=== PATIENT | male | born 1940 | race Caucasian/White ===

== ENCOUNTER 2017-01-26 16:52 | Inpatient (IN) | payer MEDICARE, OTHER ==
[~2017-01-26] VITALS: Ht 177.8 cm; Wt 66.2 kg
[~2017-01-26 16:52] MED LIST: ALBU8.5H2 IH; ALPR1TAB2 PO; CLOP75TA2 PO; FLUT1DIS3 IH
[2017-01-26 17:24] LABS: BASOPHILS % (AUTO) 0.3 % (0.0-2.0); EOSINOPHILS # (AUTO) 0.1 /CMM (0.0-0.7); EOSINOPHILS % (AUTO) 1.6 % (0.0-6.0); HEMATOCRIT 43 % (39-51); HEMOGLOBIN 14.7 g/dL (13.5-17.5); LYMPHOCYTES # (AUTO) 1.4 /CMM (0.8-4.8); LYMPHOCYTES % (AUTO) 16.1 % (20.0-44.0); MEAN CORPUSCULAR HEMOGLOBIN 28 PG (26.0-33.0); MEAN CORPUSCULAR HGB CONC 35 g/dl (31.0-36.0); MEAN CORPUSCULAR VOLUME 82 fL (80-96); MONOCYTES # (AUTO) 0.4 /CMM (0.1-1.30); MONOCYTES % (AUTO) 4.2 % (2.0-12.0); NEUTROPHILS % (AUTO) 77.8 % (43.0-81.0); PLATELET COUNT (AUTO) 166 /CMM (150-450); RDW COEFFICIENT OF VARIATION 13.4 (11.5-15.0); RED BLOOD CELL COUNT(AUTO) 5.18 MIL/uL (4.5-6.0); WHITE BLOOD COUNT (AUTO) 8.9 K/uL (4.3-11.0)
[2017-01-26] MEDS ORDERED: CEFTRIAXONE 1GM BAG (ER ONLY) 50 ML IV ONE ×2 (17:30→17:36)
[2017-01-26] MEDS ORDERED: AZITHROMYCIN 500 MG in IV D5W 250 ML IV ONE (17:30)
[2017-01-26] MEDS ORDERED: IV NS 0.9% 1,000 ML BAG IV ONE (17:30)
[2017-01-26] MEDS ORDERED: IV NS 0.9% 2,000 ML ONE (17:32)
[2017-01-26] MEDS ORDERED: IV SET PRIMARY 1 EA INFUS.SET MC ONE (17:32)
[2017-01-26] MEDS ORDERED: IV SET PRIMARY PUMP SET 1 EA INFUS.SET MC ONE (17:32)
[2017-01-26 17:40] LABS: CREATININE 1.5 mg/dL (0.6-1.3)
[2017-01-26 17:51] LABS: LACTIC ACID 1.3 mmol/L (0.4-2.0)
[2017-01-26] MEDS ORDERED: ESOM40CA PO (18:45)
[2017-01-26] MEDS ORDERED: DONE5TAB34 PO (18:45)
[2017-01-26] MEDS ORDERED: TAMS0.4C34 PO (18:45)
[2017-01-26] MEDS ORDERED: ASPI81TA2 PO (18:45)
[2017-01-26] MEDS ORDERED: ATOR40TA PO (18:45)
[2017-01-26] MEDS ORDERED: ASPIRIN 325 MG TABLET ONE (18:58)
[2017-01-26] MEDS ORDERED: FUROSEMIDE 20 MG/2 ML VIAL ONE (18:58)
--- NOTE | 2017-01-26 18:58 | NUR ---
CALLED NURSING SUP. FOR TELE BED
[2017-01-26] MEDS ORDERED: ASPIRIN 325 MG TABLET PO ONE (19:00)
[2017-01-26] MEDS ORDERED: FUROSEMIDE 20 MG/2 ML VIAL IV ONE (19:00)
--- NOTE | 2017-01-26 19:21 | NUR ---
RECEIVED REPORT FROM RADHA MUSE.
--- NOTE | 2017-01-26 19:56 | NUR ---
PT ASSIGNED TO [facility] 304-2
--- NOTE | 2017-01-26 20:02 | NUR ---
REPORT GIVEN TO RN SHA FOR TELE BED 304-2
--- NOTE | 2017-01-26 20:26 | NUR ---
PT TRASNFERED PER ACLS PROTOCOL.
[2017-01-26] MEDS ORDERED: MAG HYDROX/AL HYDROX/SIMETH 30 ML UDC PO PRN (20:30)
[2017-01-26] MEDS ORDERED: ZOLPIDEM TARTRATE 5 MG TABLET PO PRN (20:30)
[2017-01-26] MEDS ORDERED: Z GUARD REMEDY 2 OZ OINT TP PRN (20:30)
[2017-01-26] MEDS ORDERED: MAGNESIUM HYDROXIDE 30 ML UDC PO PRN (20:30)
[2017-01-26] MEDS ORDERED: ONDANSETRON HCL/PF 4 MG/2 ML VIAL IVP PRN (20:30)
--- NOTE | 2017-01-26 20:30 | NUR ---
RN NOTE PT ARRIVED ON UNIT. AAOX3, NO S/S OF RESPIRATORY DISTRESS. ON 2L NC. DENIES PAIN/DISCOMFORT. TELE ATTACHED - SR 80'S. SKIN ISSUES NOTED. VSS. ABLE TO URINATE ON OWN. ORIENTATED TO UNIT AND CALL LIGHT. WILL CONT TO MONITOR. AWAITING MD ORDERS
[2017-01-26] MEDS ORDERED: TAMSULOSIN 0.4 MG CAP.SR.24H ONE (21:15)
[2017-01-26 21:30] VITALS: BP 126/72
[2017-01-26] MEDS: TAMSULOSIN 0.4 MG CAP.SR.24H PO SCH (22:33)
[2017-01-26] MEDS ORDERED: IV NS 0.9% 500 ML IV ONE (23:30)
[2017-01-27] VITALS: BP 122/63
[2017-01-27] MEDS ORDERED: IV NS 0.9% 1,000 ML ONE (00:04)
[2017-01-27] MEDS ORDERED: IV SET PRIMARY PUMP SET 1 EA INFUS.SET MC ONE (00:04)
[2017-01-27] MEDS: IPRATROPIUM NEB FS 0.5 MG/2.5 ML AMPUL.NEB NEB SCH ×7 (00:14→23:01)
[2017-01-27] MEDS: ALBUTEROL FS 2.5 MG/0.5 ML VIAL.NEB NEB SCH ×2 (00:14→03:09)
[2017-01-27] MEDS ORDERED: ACETAMINOPHEN 325 MG TABLET ONE (01:34)
[2017-01-27] MEDS: ACETAMINOPHEN 325 MG TABLET PO PRN ×2 (01:45→12:43)
[2017-01-27 04:00] VITALS: BP 116/60
--- NOTE | 2017-01-27 06:17 | NUR ---
RN NOTE NO SIGNIFICANT CHANGES THIS SHIFT. PT AAOX4, NO C/O OF PAIN OR DISCOMFORT AT THIS TIME. NO S/S OF RESPIRATORY DISTRESS. ON NC 2L O2. VSS. HOB ELEVATED 30 DEGREES. IV INTACT AND PATENT. CALL LIGHT IN REACH, WILL F/U WITH DAY SHIFT FOR ROBINSON. Addendum: 01/27/17 at 0623 by SHA MATTHEW RN TELE SHOWS SR 60'S
[2017-01-27] MEDS ORDERED: ALBUTEROL SULFATE 8 GM HFA.AER.AD IH SCH (07:00)
--- NOTE | 2017-01-27 07:37 | NUR ---
MANAGER MECHANICAL MAINTENANCE OPENING NOTE PATIENT IS ASLEEP IN BED LOCKED IN LOWEST POSITION WITH SIDERAILS UP x2. NO PAIN AT THIS TIME. NO SOB OR DISTRESS NOTED. CALL LIGHT WITHIN REACH. IV INTACT AND PATENT NO REDNESS OR SWELLING NOTED. SAFETY MEASURES IMPLEMENTED. ALL NURSING CARE NEEDS WILL BE ATTENDED TO. WILL CONTINUE TO MONITOR
[2017-01-27] MEDS: ALBUTEROL FS 2.5 MG/3 ML VIAL.NEB NEB SCH ×5 (07:43→23:01)
[2017-01-27 08:00] VITALS: BP 103/53
[2017-01-27 08:03] LABS: BASOPHILS % (AUTO) 0.3 % (0.0-2.0); EOSINOPHILS # (AUTO) 0.2 /CMM (0.0-0.7); HEMATOCRIT 36 % (39-51); HEMOGLOBIN 12.1 g/dL (13.5-17.5); LYMPHOCYTES % (AUTO) 24.7 % (20.0-44.0); MEAN CORPUSCULAR HEMOGLOBIN 28 PG (26.0-33.0); MEAN CORPUSCULAR HGB CONC 33 g/dl (31.0-36.0); MEAN CORPUSCULAR VOLUME 83 fL (80-96); MONOCYTES # (AUTO) 0.7 /CMM (0.1-1.30); MONOCYTES % (AUTO) 8.2 % (2.0-12.0); NEUTROPHILS # (AUTO) 5.3 /CMM (1.8-8.9); NEUTROPHILS % (AUTO) 64.8 % (43.0-81.0); PLATELET COUNT (AUTO) 158 /CMM (150-450); RDW COEFFICIENT OF VARIATION 14.3 (11.5-15.0); RED BLOOD CELL COUNT(AUTO) 4.37 MIL/uL (4.5-6.0); WHITE BLOOD COUNT (AUTO) 8.2 K/uL (4.3-11.0)
[2017-01-27 08:28] LABS: CALCIUM, SERUM 7.9 mg/dL (8.5-10.1); CREATININE 1.3 mg/dL (0.6-1.3); MAGNESIUM 1.4 mg/dL (1.8-2.4); PHOSPHORUS 4.1 mg/dL (2.5-4.9); POTASSIUM 3.1 mmol/L (3.5-5.1)
[2017-01-27] MEDS: PANTOPRAZOLE 40 MG TABLET.DR PO SCH (08:47)
[2017-01-27] MEDS: ATORVASTATIN 40 MG TABLET PO SCH (08:48)
[2017-01-27] MEDS: ASPIRIN 81 MG TAB.CHEW PO SCH (08:48)
[2017-01-27] MEDS: CLOPIDOGREL BISULFATE 75 MG TABLET PO SCH (08:48)
[2017-01-27] MEDS: DONEPEZIL 5 MG TABLET PO SCH (08:48)
[2017-01-27] MEDS ORDERED: methylPREDNISolone SOD SUCC 125 MG/2ML VIAL IV SCH (09:00)
[2017-01-27] MEDS: FLUTICASONE/SALMETEROL DISKUS IH SCH ×2 (09:00→21:00)
[2017-01-27] MEDS: HYDROCODONE/APAP 5/325MG 1 EACH TABLET PO PRN ×2 (09:50→15:43)
[2017-01-27] MEDS ORDERED: SECONDARY IV SET 1 EA INFUS.SET MC ONE (09:53)
[2017-01-27] MEDS ORDERED: ENOXAPARIN SODIUM 40 MG/0.4 ML DISP.SYRIN SQ SCH (10:00)
[2017-01-27] MEDS: Magnesium 1GM/D5W 100ML PREMIX 100 ML IV SCH ×2 (10:04→11:30)
--- NOTE | 2017-01-27 11:15 | NUR ---
RN NOTE PATIENT IS NO LONGER ON TELE MONITORING, NOW ON MEDSUR
[2017-01-27] MEDS: POTASSIUM CHLORIDE 20 MEQ TAB.PRT.SR PO SCH ×2 (11:30→12:43)
[2017-01-27] MEDS: methylPREDNISolone SOD SUCC 40 MG/ML VIAL IV SCH ×2 (12:46→16:24)
[2017-01-27 13:23] LABS: APPEARANCE,URINE CLEAR (CLEAR); BILIRUBIN,URINE NEGATIVE (NEGATIVE); BLOOD, URINE 2+ Ery/uL (NEGATIVE); COLOR,URINE YELLOW (YELLOW); KETONES,URINE NEGATIVE (NEGATIVE); LEUKOCYTE ESTERASE ,URINE NEGATIVE (NEGATIVE); NITRITE, URINE NEGATIVE (NEGATIVE); PROTEIN,URINE NEGATIVE (NEGATIVE); UGLUCOSE NEGATIVE (NEGATIVE); UROBILINOGEN,URINE 0.2 EU/dL (0.2)
[2017-01-27 13:38] LABS: ADD URINE CULTURE NO; BACTERIA,URINE Few /HPF (None Seen); RBC,URINE 51-80 /HPF (0-2); SQUAMOUS EPITHELIAL CELL,UR None Seen /HPF (None Seen); WBC,URINE 0-2 /HPF (0-3)
[2017-01-27 16:00] VITALS: BP 129/63
--- NOTE | 2017-01-27 16:56 | NUR ---
MS RN NOTE PATIENT WAS TAKEN TO CT FOR CHEST. PATIENT IS STABLE, NO PAIN AT THIS TIME.
--- NOTE | 2017-01-27 17:16 | NUR ---
ms rn note patient is back from CT scan of the chest. patient is stable. vitals are stable. will continue to monitor
[2017-01-27] MEDS: ALPRAZOLAM 1 MG TABLET PO PRN (17:36)
[2017-01-27] MEDS ORDERED: AZITHROMYCIN 250 MG TABLET PO SCH (18:00)
--- NOTE | 2017-01-27 18:38 | NUR ---
MS RN CLOSING NOTE PATIENT IS ALERT AND ORIENTED x3. ASLEEP IN BED LOCKED IN LOWEST POSITION WITH SIDERAILS UP x2. NO PAIN AT THIS TIME. NO SOB OR DISTRESS NOTED. ALL DUE MEDICATION GIVEN ORDERED. ALL NURSING CARE NEEDS ATTENDED TO. CALL LIGHT WITHIN REACH. SAFETY MEASURES IMPLEMENTED AT ALL TIMES. IV INTACT AND PATENT NO REDNESS OR SWELLING NOTED. WILL ENDORSE TO CREW LEADER/CONTROL ROOM OPERATOR NURSE FOR ROBINSON
--- NOTE | 2017-01-27 19:05 | NUR ---
RN NOTE RECEIVED REPORT. PT RESTING IN BED WITH EYES CLOSED. APPEARS COMFORTABLE. NO S/S OF RESPIRATORY DISTRESS, CHEST RISE/FALL NOTED. ON NC 2L. HOB ELEVATED 30 DEGREES. M/S STATUS. CALL LIGHT IN REACH. WILL CONT TO MONITOR.
[2017-01-27 20:00] VITALS: BP 128/71
[2017-01-27] MEDS: TAMSULOSIN 0.4 MG CAP.SR.24H PO SCH (22:42)
[2017-01-28] MEDS: HYDROCODONE/APAP 5/325MG 1 EACH TABLET PO PRN ×2 (01:13→09:29)
[2017-01-28] MEDS: IPRATROPIUM NEB FS 0.5 MG/2.5 ML AMPUL.NEB NEB SCH ×6 (03:46→22:54)
[2017-01-28] MEDS: ALBUTEROL FS 2.5 MG/3 ML VIAL.NEB NEB SCH ×6 (03:46→22:54)
[2017-01-28] MEDS: ALPRAZOLAM 1 MG TABLET PO PRN ×2 (05:02→21:40)
[2017-01-28 07:29] LABS: BASOPHILS % (AUTO) 0.2 % (0.0-2.0); HEMATOCRIT 37 % (39-51); HEMOGLOBIN 12.2 g/dL (13.5-17.5); LYMPHOCYTES # (AUTO) 1.3 /CMM (0.8-4.8); MEAN CORPUSCULAR HEMOGLOBIN 28 PG (26.0-33.0); MEAN CORPUSCULAR HGB CONC 33 g/dl (31.0-36.0); MEAN CORPUSCULAR VOLUME 83 fL (80-96); MONOCYTES # (AUTO) 0.6 /CMM (0.1-1.30); MONOCYTES % (AUTO) 3.8 % (2.0-12.0); NEUTROPHILS # (AUTO) 12.8 /CMM (1.8-8.9); PLATELET COUNT (AUTO) 156 /CMM (150-450); RDW COEFFICIENT OF VARIATION 14.6 (11.5-15.0); RED BLOOD CELL COUNT(AUTO) 4.43 MIL/uL (4.5-6.0); WHITE BLOOD COUNT (AUTO) 14.7 K/uL (4.3-11.0)
--- NOTE | 2017-01-28 07:30 | NUR ---
RN NOTE NO SIGNIFICANT CHANGES OVERNIGHT. PT SLEPT WELL. PRN XANAX EFFECTIVE. APPEARS CALM. NO DISTRESS AT THIS TIME, VS STABLE. ALL NEEDS ATTENED TO. CALL LIGHT IN REACH, WILL F/U WITH DAY SHIFT FOR ROBINSON.
[2017-01-28 07:51] VITALS: BP 107/62
[2017-01-28 07:59] LABS: CALCIUM, SERUM 8.6 mg/dL (8.5-10.1); CREATININE 1.3 mg/dL (0.6-1.3); MAGNESIUM 1.7 mg/dL (1.8-2.4); PHOSPHORUS 3.2 mg/dL (2.5-4.9); POTASSIUM 3.8 mmol/L (3.5-5.1)
[2017-01-28 08:00] VITALS: BP 107/67
[2017-01-28] MEDS: PANTOPRAZOLE 40 MG TABLET.DR PO SCH (08:46)
[2017-01-28] MEDS: methylPREDNISolone SOD SUCC 40 MG/ML VIAL IV SCH ×2 (08:46→12:14)
[2017-01-28] MEDS: ATORVASTATIN 40 MG TABLET PO SCH (08:46)
[2017-01-28] MEDS: DONEPEZIL 5 MG TABLET PO SCH (08:46)
[2017-01-28] MEDS: CLOPIDOGREL BISULFATE 75 MG TABLET PO SCH (08:46)
[2017-01-28] MEDS: ASPIRIN 81 MG TAB.CHEW PO SCH (08:46)
[2017-01-28] MEDS: FLUTICASONE/SALMETEROL DISKUS IH SCH ×2 (08:47→21:50)
[2017-01-28] MEDS ORDERED: SECONDARY IV SET 1 EA INFUS.SET MC ONE ×2 (09:21→11:27)
[2017-01-28] MEDS: Magnesium 1GM/D5W 100ML PREMIX 100 ML IV SCH ×2 (09:24→10:23)
[2017-01-28] MEDS ORDERED: LEVOFLOXACIN 750 MG /D5W 150ML 750 MG in PREMIX 1 EA IV SCH ×2 (10:00→11:00)
[2017-01-28] MEDS ORDERED: IBUPROFEN 600 MG TABLET PO SCH (11:30)
[2017-01-28] MEDS: MORPHINE SULFATE INJ 2 MG/ML DISP.SYRIN IV PRN ×2 (13:09→23:36)
[2017-01-28] MEDS: ACETYLCYSTEINE 10% SOLN 400 MG/4 ML VIAL NEB SCH ×2 (15:30→22:54)
--- NOTE | 2017-01-28 15:39 | NUR ---
RT PT HAVING BEDSIDE PROCEDURE, TX NOT GIVEN AT THIS TIME.
--- NOTE | 2017-01-28 18:26 | NUR ---
MS/Rn: notes Patient reassessed per Medical / Surgical protocol, no acute change noted from initial shift assessment. please see completed data in flowsheets. patient a / o x 4, adequate oxygenation on 3 liter nasal cannula , saturation >95%, no shortness of breath noted, HHN treatment given by RT. vss, afebrile. patient turned and positioned q2h and prn. tolerated diet well, no nausea, vomiting noted. adequate urine output, + BM. Venous Doppler done, negative for DVT. Prn given for pain management. Will continue to monitor closely and intervene as appropriate.
--- NOTE | 2017-01-28 19:10 | NUR ---
RN NOTE RECEIVED REPORT. PT AAOX3, NO S/S OF RESPIRATORY DISTRESS, NO C/O OF PAIN OR DISCOMFORT. ON NC 2L. NO SOB OR CP REPORTED. HOB ELEVATED 30 DEGREES. M/S STATUS. CALL LIGHT IN REACH. WILL CONT TO MONITOR.
[2017-01-28 20:15] VITALS: BP 118/52
[2017-01-28] MEDS: TAMSULOSIN 0.4 MG CAP.SR.24H PO SCH (21:40)
--- NOTE | 2017-01-29 01:23 | NUR ---
RN NOTE PT RESTING COMFORTABLY. NO DISTRESS NOTED AT THIS TIME - WILL CONT TO MONITOR.
[2017-01-29] MEDS: ALBUTEROL FS 2.5 MG/3 ML VIAL.NEB NEB SCH ×4 (03:49→15:28)
[2017-01-29] MEDS: IPRATROPIUM NEB FS 0.5 MG/2.5 ML AMPUL.NEB NEB SCH ×4 (03:49→15:28)
--- NOTE | 2017-01-29 06:02 | NUR ---
RN NOTE NO SIGNIFICANT CHANGES OVERNIGHT. NO S/S OF RESPIRATORY DISTRESS AT THIS TIME. NO SOB NOTED. NO C/O OF PAIN OR DISCOMFORT. PAIN MEDS EFFECTIVE THIS SHIFT. VS STABLE. ALL NEEDS ATTENDED TO. CALL LIGHT IN REACH, WILL F/U WITH DAY SHIFT FOR ROBINSON.
[2017-01-29 06:49] LABS: BASOPHILS % (AUTO) 0.3 % (0.0-2.0); HEMATOCRIT 36 % (39-51); HEMOGLOBIN 11.9 g/dL (13.5-17.5); LYMPHOCYTES % (AUTO) 13.8 % (20.0-44.0); MEAN CORPUSCULAR HEMOGLOBIN 28 PG (26.0-33.0); MEAN CORPUSCULAR HGB CONC 33 g/dl (31.0-36.0); MEAN CORPUSCULAR VOLUME 83 fL (80-96); MONOCYTES # (AUTO) 0.7 /CMM (0.1-1.30); NEUTROPHILS # (AUTO) 11.5 /CMM (1.8-8.9); NEUTROPHILS % (AUTO) 80.9 % (43.0-81.0); PLATELET COUNT (AUTO) 160 /CMM (150-450); RDW COEFFICIENT OF VARIATION 14.1 (11.5-15.0); RED BLOOD CELL COUNT(AUTO) 4.27 MIL/uL (4.5-6.0); WHITE BLOOD COUNT (AUTO) 14.2 K/uL (4.3-11.0)
[2017-01-29] MEDS: ACETYLCYSTEINE 10% SOLN 400 MG/4 ML VIAL NEB SCH ×2 (07:10→15:28)
[2017-01-29 07:27] LABS: CALCIUM, SERUM 8.6 mg/dL (8.5-10.1); CREATININE 1.2 mg/dL (0.6-1.3); MAGNESIUM 1.7 mg/dL (1.8-2.4); POTASSIUM 4.3 mmol/L (3.5-5.1)
[2017-01-29] MEDS: PANTOPRAZOLE 40 MG TABLET.DR PO SCH (07:36)
[2017-01-29 07:58] VITALS: BP 123/69
[2017-01-29 08:00] VITALS: BP 123/69
[2017-01-29] MEDS: ASPIRIN 81 MG TAB.CHEW PO SCH (08:27)
[2017-01-29] MEDS: ATORVASTATIN 40 MG TABLET PO SCH (08:27)
[2017-01-29] MEDS: DONEPEZIL 5 MG TABLET PO SCH (08:27)
[2017-01-29] MEDS: CLOPIDOGREL BISULFATE 75 MG TABLET PO SCH (08:29)
[2017-01-29] MEDS: FLUTICASONE/SALMETEROL DISKUS IH SCH (08:30)
[2017-01-29] MEDS ORDERED: methylPREDNISolone SOD SUCC 40 MG/ML VIAL IV SCH (09:00)
[2017-01-29] MEDS ORDERED: Ipratropium Bromide NEB (10:00)
[2017-01-29] MEDS ORDERED: PRED20TA GT (10:00)
[2017-01-29] MEDS ORDERED: HYDR-3326 PO (10:00)
[2017-01-29] MEDS ORDERED: PRED20TA PO (10:00)
[2017-01-29] MEDS ORDERED: LEVO500T15 PO (10:02)
[2017-01-29] MEDS: Magnesium 1GM/D5W 100ML PREMIX 100 ML IV SCH ×2 (11:13→13:04)
--- NOTE | 2017-01-29 16:28 | NUR ---
MS/RN: discharge All discharge instruction gave to patient, verbalize understanding, patient's belongings: cell phone, java j2ee architect, Knott $ 600($100 x 6), shoes, jacket, t-shirt are with patient, copy of patient's belonging provided to patient, and informed to patient to call [phone] for missing items that he claimed ( Pajamas, keys and pants).Zay h/l removed, no bleeding noted, wrist band removed. patient denies pain, no shortness of breath noted, condition stable. patient is picked up by ambulance via gurney with stable condition. Addendum: 01/29/17 at 1904 by ANJALI KAISER RN notes: discharge picture taken.
--- NOTE | 2017-01-29 16:30 | NUR ---
ms/rn: notes report gave to RN carpentry supervisor Halle at [facility], tel: [phone]. Notified that patient has steward $600, and missing Pajamas, pants and keys. Charge nurse made aware patient missing items, copy of the patient's belongings form given to charge nurse.
== END 2017-01-29 16:45 | DRG 193 ==
LOC: ER 17:14 → TELE 19:51 → MED 01-27 10:45
PROVIDERS: ADMIT Family Medicine; ATTEND Family Medicine
DX: J15.9 Unspecified bacterial pneumonia (principal); N17.0 Acute kidney failure with tubular necrosis; J44.1 Chronic obstructive pulmonary disease with (acute) exacerbation; I50.32 Chronic diastolic (congestive) heart failure; I13.0 Hypertensive heart and chronic kidney disease with heart failure and stage 1 through stage 4 chronic kidney disease, or unspecified chronic kidney disease; J98.11 Atelectasis; J44.0 Chronic obstructive pulmonary disease with (acute) lower respiratory infection; N18.9 Chronic kidney disease, unspecified; N40.0 Benign prostatic hyperplasia without lower urinary tract symptoms; K21.9 Gastro-esophageal reflux disease without esophagitis; Z86.711 Personal history of pulmonary embolism; J45.909 Unspecified asthma, uncomplicated; Z86.73 Personal history of transient ischemic attack (TIA), and cerebral infarction without residual deficits; Z87.891 Personal history of nicotine dependence; F03.90 Unspecified dementia, unspecified severity, without behavioral disturbance, psychotic disturbance, mood disturbance, and anxiety; E78.5 Hyperlipidemia, unspecified; E83.42 Hypomagnesemia
CPT/HCPCS: 36415; 71010-TC; 71250-TC; 80048-TC; 80061-TC; 81000-TC; 82378; 83605-TC; 83615-TC; 83735-TC; 83880; 84100-TC; 84484-TC; 85025-TC; 87040-TC; 87081-TC; 87086-TC; 87400; 93307-TC; 93970-TC; 94799-TC; 97001-TC; 97116-TC; 97530-TC; A4216; A4606; J0456; J0696; J1650; J1940; J1956; J2270; J2920; J2930; J3475; J7030; J7040; J7060; Z7610

== ENCOUNTER 2017-08-23 19:22 | Inpatient (IN) | payer MEDICARE, OTHER ==
[~2017-08-23] VITALS: Ht 167.6 cm; Wt 63.5 kg
[2017-08-23 19:20] VITALS: BP 160/93
[~2017-08-23 19:22] MED LIST changes: +ASPI81TA2 PO; +ATOR40TA PO; +DONE5TAB34 PO; +ESOM40CA PO; +HYDR-3326 PO; +Ipratropium Bromide NEB; +LEVO500T15 PO; +PRED20TA GT; +PRED20TA PO; +TAMS0.4C34 PO
--- NOTE | 2017-08-23 19:23 | NUR ---
Note judithone in EDM - 08/23/17 at 2008 by PRIYA TO BED 5 BIB PARAMEDICS C/O SOB. PT ON CPAP BY EMS DIRECTOR CAREER SERVICES. PT AAOX4, RT AT BEDSIDE TO PLACE PT ON BIPAP. PLACE PT ON CARDIAC MONITORING, CONTINUOUS POX. STATRED SL 16G TO R FOREAR, BLOOD DRAWN AND SENT TO LAB. NAVIN AQUINO AT BEDSIDE WITH ORDER TO PLACE PT ON BIPAP. SKIN WARM, NONDIAPHORETIC. WILL CARRY OUT ORDERS.
--- NOTE | 2017-08-23 19:23 | NUR ---
TO BED 5 BIB PARAMEDICS C/O SOB. PT ON CPAP BY EMS REFERENCE ARCHIVIST. PT AAOX4, RT AT BEDSIDE TO PLACE PT ON BIPAP. RHONCHI HEARD BILATERALLY ON AUSCULTATION. PLACE PT ON CARDIAC MONITORING, CONTINUOUS POX. STATRED SL 16G TO R FOREAR, BLOOD DRAWN AND SENT TO LAB. ER MD AT BEDSIDE WITH ORDER TO PLACE PT ON BIPAP. SKIN WARM, NONDIAPHORETIC. WILL CARRY OUT ORDERS.
[2017-08-23] MEDS ORDERED: NITROGLYCERIN PACKET 1 GM PACKET TOP ONE (19:30)
[2017-08-23] MEDS ORDERED: ENALAPRILAT INJ (1.25 MG/ML) 1.25 MG/ML VIAL IV PRN (19:30)
[2017-08-23] MEDS ORDERED: NITROGLYCERIN PACKET 1 GM PACKET ONE (19:33)
[2017-08-23] MEDS ORDERED: ENALAPRILAT DIHYD. (2.5MG/ML) 1.25 MG/ML VIAL IV ONE (19:34)
[2017-08-23 19:35] LABS: BASOPHILS # (AUTO) 0.3 /CMM (0.0-0.2); BASOPHILS % (AUTO) 1.4 % (0.0-2.0); HEMATOCRIT 49 % (39-51); HEMOGLOBIN 16.6 g/dL (13.5-17.5); MEAN CORPUSCULAR HEMOGLOBIN 28 PG (26.0-33.0); MEAN CORPUSCULAR HGB CONC 34 g/dl (31.0-36.0); MEAN CORPUSCULAR VOLUME 83 fL (80-96); MONOCYTES # (AUTO) 0.9 /CMM (0.1-1.30); MONOCYTES % (AUTO) 5.1 % (2.0-12.0); NEUTROPHILS # (AUTO) 15.2 /CMM (1.8-8.9); NEUTROPHILS % (AUTO) 82.5 % (43.0-81.0); PLATELET COUNT (AUTO) 160 /CMM (150-450); RDW COEFFICIENT OF VARIATION 12.9 (11.5-15.0); RED BLOOD CELL COUNT(AUTO) 5.94 MIL/uL (4.5-6.0); WHITE BLOOD COUNT (AUTO) 18.4 K/uL (4.3-11.0)
--- NOTE | 2017-08-23 19:41 | NUR ---
XR AT BEDSIDE.
[2017-08-23 19:47] LABS: CALCIUM, SERUM 9.3 mg/dL (8.5-10.1); CARBON DIOXIDE 24 mmol/L (21-32); CHLORIDE 103 mmol/L (98-107); CREATININE 1.3 mg/dL (0.6-1.3); GLUCOSE 151 mg/dL (74-106); POTASSIUM 3.3 mmol/L (3.5-5.1); SODIUM SERUM 139 mmol/L (136-145); UREA NITROGEN, BLOOD 26 mg/dL (7-18)
[2017-08-23 19:54] LABS: INR 1.09 (0.87-1.13); PROTHROMBIN TIME 11.3 SECS (9.5-12.7); TROPONIN I 0.062 ng/mL (0.00-0.056)
[2017-08-23 19:59] LABS: B-TYPE NATRIURETIC PEPTIDE 2853 PG/ML (0-125)
--- NOTE | 2017-08-23 20:28 | NUR ---
PAGED ADELFO MENG CHERRY PICKER OPERATOR PANEL.
[2017-08-23] MEDS ORDERED: CEFTRIAXONE 1GM BAG (ER ONLY) 50 ML IV ONE ×2 (20:30→20:32)
[2017-08-23] MEDS ORDERED: IV NS 0.9% 1,000 ML BAG IV ONE (20:30)
[2017-08-23] MEDS ORDERED: ASPIRIN 325 MG TABLET PO ONE (20:30)
[2017-08-23] MEDS ORDERED: AZITHROMYCIN 500 MG in IV D5W 250 ML IV ONE (20:30)
[2017-08-23] MEDS ORDERED: ASPIRIN 325 MG TABLET ONE (20:33)
--- NOTE | 2017-08-23 20:46 | NUR ---
ASSIGNED ICU BED 252. AWAITING ARRIVAL OF NURSE TO CARE FOR PT IN ICU. ETA: 30 MINS
--- NOTE | 2017-08-23 20:53 | NUR ---
RECEIVED CALL FROM LYNETTE LEVIN (FRIEND ON HELATH DIRECTIVE) SEEN BY DR. MOHAN APPROX 2 MONTHS AGO SEEN BY BRANDON GAYTAN IN [place] [facility] IN [facility]
[2017-08-23] MEDS ORDERED: AZITHROMYCIN 500 MG VIAL ONE (21:14)
--- NOTE | 2017-08-23 21:23 | NUR ---
PER GOLF PROFESSIONAL, ICU CAN NOW ACCOMODATE PT. PRIMARY NURSE INFORMED AND INSTRUCTED TO GIVE REPORT TO ICU.
--- NOTE | 2017-08-23 21:52 | NUR ---
REPORT GIVEN TO JOEY GARCIA FOR ICU ADMISSION AND ROBINSON.
[2017-08-23] MEDS ORDERED: ONDANSETRON HCL/PF 4 MG/2 ML VIAL IVP PRN (22:00)
[2017-08-23] MEDS ORDERED: Z GUARD REMEDY 2 OZ OINT TP PRN (22:00)
[2017-08-23] MEDS ORDERED: ACETAMINOPHEN 325 MG TABLET PO PRN (22:00)
[2017-08-23] MEDS ORDERED: MAGNESIUM HYDROXIDE 30 ML UDC PO PRN (22:00)
[2017-08-23] MEDS ORDERED: ZOLPIDEM TARTRATE 5 MG TABLET PO PRN (22:00)
[2017-08-23] MEDS: TAMSULOSIN 0.4 MG CAP.SR.24H PO SCH (22:00)
--- NOTE | 2017-08-23 22:12 | NUR ---
Tranferred patient to icu bed 255 via als protocol, no incident noted.
[2017-08-23 22:20] VITALS: BP_SYST 145; BP_SYST 95; BP_DIAS 56; BP_DIAS 73
[2017-08-23 22:30] VITALS: BP 121/60
--- NOTE | 2017-08-23 22:31 | NUR ---
BUSINESS ASSISTANT DF RECEIVED PT TO ROOM#252 PT ADMITTED FOR COPD EXCAB/RESP DISTRESS/PNA. PT A/OX4 CALM,COOPERATIVE. PT VERBALIZES GOOD UNDERSTANDING OF TREATMENT PLAN. PT CURRENTLY ON BIPAP RATE OF 16 I/E 18/5 40% FIO2 VSS. O2 SAT OF 97-98%. NO DISTRESS NOTED. PHYSICAL ASSESSMENT COMPLETED
[2017-08-23 23:00] VITALS: BP 95/56
[2017-08-23 23:08] VITALS: BP 95/56
[2017-08-24] VITALS (44 sets, daily range): BP systolic 103–167; BP diastolic 49–124
[2017-08-24] MEDS ORDERED: ALBUTEROL FS 2.5 MG/0.5 ML VIAL.NEB NEB PRN (00:30)
[2017-08-24] MEDS ORDERED: LEVOFLOXACIN 750 MG /D5W 150ML 750 MG in PREMIX 1 EA IV SCH (00:30)
[2017-08-24] MEDS ORDERED: IPRATROPIUM NEB FS 0.5 MG/2.5 ML AMPUL.NEB NEB PRN (00:30)
[2017-08-24] MEDS ORDERED: POTASSIUM CL. PREMIX PERIPHER. 50 ML ONE (00:53)
[2017-08-24] MEDS ORDERED: LEVOFLOXACIN 750 MG /D5W 150ML 150 ML IV ONE (00:56)
[2017-08-24] MEDS: POTASSIUM CL. PREMIX PERIPHER. 50 ML IV SCH ×4 (01:12→03:53)
[2017-08-24] MEDS ORDERED: POTASSIUM CL. PREMIX PERIPHER. 150 ML ONE (02:01)
[2017-08-24] MEDS ORDERED: ALPRAZOLAM 1 MG TABLET ONE (03:43)
--- NOTE | 2017-08-24 03:55 | NUR ---
CATERING TRUCK DRIVER DF PT AGITATED YELLING/RESTLESS. PT HAS HX OF ANXIETY. PT REQUESTED XANAX PRN ANXIETY 2ND HOSPITALIZATION. BIPAP REMOVED ORAL CARE PROVIDED. PT DOING WELL ON BIPAP O2 SAT OF 98%, DENIES CHEST PAIN. PT C/O POTASSIUM INFUSION PAIN IV SITE INTACT, ALLOWED PT REST PERIOD IN BETWEEN INFUSIONS. VSS.NAD NOTED. ALL NEEDS ATTENDED TO.
--- NOTE | 2017-08-24 05:43 | NUR ---
ROLLER SKATER DF PT RECEIVED 40MEQ KCL OVER 4 HOURS, LAB TROPONIN DUE AT 0700. LAST LABS 08/23 1930. CALLED LAB FOR BLOOD DRAW.
--- NOTE | 2017-08-24 07:45 | NUR ---
EMERGENCY DEPARTMENT PHYSICIAN: pt.is sleepy, got Xanax over night, able to awake up with A/Ox2, no c/o now, no ani pain, on Bipap 15/5, R 6, FiO2 35%, O2 sat. 98-100%, no ABG result in EMR, RT updated, SR, SBP 110-145, able to urinate by report, nitro patch on chest?/will reevaluate orders, 40meq K+ IV were given by report, getting aspirin, plavix
[2017-08-24 08:28] LABS: BASOPHILS % (AUTO) 0.1 % (0.0-2.0); EOSINOPHILS % (AUTO) 0.1 % (0.0-6.0); HEMATOCRIT 37 % (39-51); HEMOGLOBIN 12.7 g/dL (13.5-17.5); LYMPHOCYTES # (AUTO) 1.5 /CMM (0.8-4.8); LYMPHOCYTES % (AUTO) 10.1 % (20.0-44.0); MEAN CORPUSCULAR HEMOGLOBIN 28 PG (26.0-33.0); MEAN CORPUSCULAR HGB CONC 34 g/dl (31.0-36.0); MEAN CORPUSCULAR VOLUME 83 fL (80-96); MONOCYTES # (AUTO) 0.9 /CMM (0.1-1.30); MONOCYTES % (AUTO) 5.9 % (2.0-12.0); NEUTROPHILS # (AUTO) 12.2 /CMM (1.8-8.9); NEUTROPHILS % (AUTO) 83.8 % (43.0-81.0); PLATELET COUNT (AUTO) 126 /CMM (150-450); RDW COEFFICIENT OF VARIATION 13.4 (11.5-15.0); RED BLOOD CELL COUNT(AUTO) 4.49 MIL/uL (4.5-6.0); WHITE BLOOD COUNT (AUTO) 14.6 K/uL (4.3-11.0)
[2017-08-24] MEDS ORDERED: FLUTICASONE/VILANTEROL 1 EACH BLST.W.DEV IH SCH (09:00)
--- NOTE | 2017-08-24 09:00 | NUR ---
RIBBON LAP MACHINE TENDER: pt.is more awake, no c/o, able to follow simple commands, O2 sat. WNL, waiting health policy manager
[2017-08-24 09:08] LABS: CARBON DIOXIDE 27 mmol/L (21-32); CHLORIDE 108 mmol/L (98-107); CREATININE 1.2 mg/dL (0.6-1.3); GLUCOSE 101 mg/dL (74-106); MAGNESIUM 1.5 mg/dL (1.8-2.4); PHOSPHORUS 2.1 mg/dL (2.5-4.9); POTASSIUM 3.6 mmol/L (3.5-5.1); SODIUM SERUM 142 mmol/L (136-145); UREA NITROGEN, BLOOD 23 mg/dL (7-18)
[2017-08-24] MEDS: methylPREDNISolone SOD SUCC 40 MG/ML VIAL IV SCH ×3 (09:38→17:07)
[2017-08-24] MEDS: CLOPIDOGREL BISULFATE 75 MG TABLET PO SCH (09:39)
[2017-08-24] MEDS: ATORVASTATIN 40 MG TABLET PO SCH (09:39)
[2017-08-24] MEDS: ASPIRIN 81 MG TAB.CHEW PO SCH (09:39)
[2017-08-24] MEDS: DONEPEZIL 5 MG TABLET PO SCH (09:43)
--- NOTE | 2017-08-24 10:20 | NUR ---
LIQUOR DEPARTMENT MANAGER: is in room, notified re pt.history, current condition, VS, O2sat., meds, Breo Ellipta prev.order, ordered: remove Bipap, titrate O2, ABG in 1hr
--- NOTE | 2017-08-24 11:00 | NUR ---
CHIEF CONTROLLER TOWER: board setter was in room, notified re pt.history, VS, SBP episodes up to 160, labs, troponin, orders, meds, incl. aspirin, plavix, POC, is in room, updated with all above, ordered: cardiac diet
--- NOTE | 2017-08-24 11:14 | NUR ---
EXPERIMENTAL BOX TESTER: PT is in room from assessment, but pt.is drowsy, unable to follow commands well, also unable to inhale Breo Ellipta f/u instruction and precaution, is going to reevaluate resp.meds Tx
[2017-08-24] MEDS: K PHOS NEUTRAL 250 MG TABLET PO ONE ×2 (12:00→12:04)
--- NOTE | 2017-08-24 12:00 | NUR ---
INPATIENT AUDITOR: checked ABG, no new order for now
[2017-08-24 12:07] LABS: ABG BASE EXCESS -2.5 mmol/L; ABG OXYGEN SATURATION 93.6 % (92.0-98.5); ABG PCO2 31.9 mmHg (35.0-45.0); ABG PH 7.432 (7.350-7.450); ABG PO2 68.1 mmHg (75.0-100.0); AaDO2 93.9 mmHg; MetHb 0.5 % (0.0-1.5); O2Hb 92.2 % (94.0-97.0); SITE, ABG Right Radial; VENT MODE, BG NASAL CANNULA
[2017-08-24] MEDS ORDERED: IPRATROPIUM NEB FS 0.5 MG/2.5 ML AMPUL.NEB NEB SCH (13:00)
[2017-08-24] MEDS ORDERED: ALBUTEROL FS 2.5 MG/0.5 ML VIAL.NEB NEB SCH (13:00)
--- NOTE | 2017-08-24 13:15 | NUR ---
CONTRACT PROGRAMMER: pt.is drowsy/lethargic, able to open eyes for seconds by touch, but unable to follow commands, O2sat. 94-96% on 2-4L n/c, SR, SBP episodes up to 160, notified, rechecked pt., ordered: resume Bipap, ABG in 30 min
[2017-08-24 13:52] LABS: ABG BASE EXCESS -1.4 mmol/L; ABG OXYGEN SATURATION 93.5 % (92.0-98.5); ABG PCO2 33.6 mmHg (35.0-45.0); ABG PH 7.436 (7.350-7.450); ABG PO2 66.3 mmHg (75.0-100.0); AaDO2 108.1 mmHg; COHb 0.7 % (0.5-1.5); MetHb 0.5 % (0.0-1.5); O2Hb 92.4 % (94.0-97.0); SITE, ABG Right Radial
--- NOTE | 2017-08-24 14:10 | NUR ---
NUTRITIONAL SERVICES COOK: pt.is on previous setting Bipap (I/E 18/5 Rate 6, FiO2 30%) during 45 min, repeated ABG: pH 7.43, pCO 33, pO2 66, HCO3 22, pt.is still drowsy/lethargic, sent message for . Pt.best friend Victorina is in room, notified re pt.VS, condition, POC
--- NOTE | 2017-08-24 14:15 | NUR ---
GOLD MARKER: charge nurse is updated with all above
--- NOTE | 2017-08-24 15:10 | NUR ---
DELINQUENT NOTICE MACHINE OPERATOR: O2sat. 96-98%, pt.is more awake, reactive by touch, short eyes contact+, RT is aware re message for
--- NOTE | 2017-08-24 15:15 | NUR ---
SHELL MOLD BONDER: checked macrobiol results: MRSA nares positive, isolation initiated, will notify , new shift
--- NOTE | 2017-08-24 15:32 | NUR ---
ENROLLMENT MANAGEMENT COORDINATOR: answered/ordered: titrate FiO2 to 93%, BCx2, UA&culture. RT was notified.
[2017-08-24] MEDS: IPRATROPIUM NEB FS 0.5 MG/2.5 ML AMPUL.NEB NEB SCH ×2 (15:33→19:38)
[2017-08-24] MEDS: ALBUTEROL FS 2.5 MG/0.5 ML VIAL.NEB NEB SCH ×2 (15:33→19:38)
--- NOTE | 2017-08-24 16:10 | NUR ---
EYEGLASS MAKER: pt.is more awake, with open eyes, rest, can follow simple commands, O2sat.94-98%, pt.nephewGinna MD is in room, got phone#, spoke with pt., notified re pt.condition, VS, orders, POC. US done/reported: R.popliteal vein DVT positive. Sent message for
--- NOTE | 2017-08-24 16:25 | NUR ---
COMMERCIAL DECORATOR: ordered: Lovenox 1mg per 1kg q12h
--- NOTE | 2017-08-24 16:45 | NUR ---
CELL INSTALLER: radiology dep. called: there is not occlusive R.popliteal v.DVT, notified: d/c Soto
--- NOTE | 2017-08-24 18:00 | NUR ---
HOUSETRAILER SERVICER: sent message for to updated with above, MRSA nares positive, (pt.nephew) visit, confirmed: ok to switch KPhos x one dose PO for IV, pharmacy updated
[2017-08-24] MEDS: Potassium Phosphate meq 11 MEQ in IV D5W 100 ML IV SCH ×2 (18:46→21:30)
[2017-08-24 18:55] LABS: APPEARANCE,URINE SL CLOUDY (CLEAR); BILIRUBIN,URINE NEGATIVE (NEGATIVE); BLOOD, URINE 3+ Ery/uL (NEGATIVE); COLOR,URINE YELLOW (YELLOW); KETONES,URINE 1+ (NEGATIVE); LEUKOCYTE ESTERASE ,URINE NEGATIVE (NEGATIVE); NITRITE, URINE NEGATIVE (NEGATIVE); PROTEIN,URINE 2+ mg/dl (NEGATIVE); UGLUCOSE NEGATIVE (NEGATIVE); UROBILINOGEN,URINE 0.2 EU/dL (0.2)
--- NOTE | 2017-08-24 19:30 | NUR ---
MANAGER PARKING INITIAL NOTE RECEIVED REPORT FROM MANNY GARCIA. PT IN BED. A/A/O X3. ON BIPAP. TOLERATING WELL. CURRENTLY USING THE URINAL. LUNG SOUNDS DIMINISHED. BOWEL SOUNDS PRESENT, CONTINENT TO URINE AND STOOL. PULSES PRESENT. IV PATENT AND INTACT. BED IN LOW LOCKED POSITION CALL LIGHT WITHIN REACH. WILL CONTINUE TO MONITOR.
[2017-08-24 20:04] LABS: BACTERIA,URINE None seen /HPF (None Seen); RBC,URINE TOO NUMEROUS TO COUN /HPF (0-2); SQUAMOUS EPITHELIAL CELL,UR Few /HPF (None Seen); WBC,URINE 0-2 /HPF (0-3)
[2017-08-24] MEDS ORDERED: Magnesium 1GM/D5W 100ML PREMIX 200 ML IV ONE (21:28)
[2017-08-24] MEDS: TAMSULOSIN 0.4 MG CAP.SR.24H PO SCH ×2 (21:30→21:47)
[2017-08-24] MEDS: Magnesium 1GM/D5W 100ML PREMIX 100 ML IV SCH ×2 (21:30→22:35)
--- NOTE | 2017-08-24 21:30 | NUR ---
SENIOR MARKETING COORDINATORMUSIC INTERN AT BEDSIDE. PT IS MORE LETHARGIC AT THIS TIME. PT DOES FOLLOW COMMANDS. WILL CONTINUE TO MONITOR.
--- NOTE | 2017-08-24 21:48 | NUR ---
BULBS FARMWORKER FLOMAX NON ADMIN. PT LETHARGIC.
--- NOTE | 2017-08-24 22:45 | NUR ---
CODE INSPECTOR PT IS MORE AWAKE, ASKING FOR WATER AND TO BE REPOSITIONED. INFORMED PT THAT FAMILY WAS HERE VISITING, HE SAID I KNOW. WILL CONTINUE and TO MONITOR.
[2017-08-25] VITALS (23 sets, daily range): BP systolic 130–175; BP diastolic 57–100
[2017-08-25] MEDS: IPRATROPIUM NEB FS 0.5 MG/2.5 ML AMPUL.NEB NEB SCH ×7 (00:31→23:51)
[2017-08-25] MEDS: ALBUTEROL FS 2.5 MG/0.5 ML VIAL.NEB NEB SCH ×7 (00:31→23:51)
--- NOTE | 2017-08-25 02:00 | NUR ---
BAND NAILER PT IN BED, ASLEEP. ON BIPAP. TOLERATING WELL. BED IN LOW LOCKED POSITION. CALL LIGHT WITHIN REACH. WILL CONTINUE TO MONITOR.
--- NOTE | 2017-08-25 04:00 | NUR ---
GOLF CLUB WEIGHER PATIENT IN BED. BED BATH PROVIDED. PT ABLE TO ASSIST WITH REPOSITIONING. PT TOLERATED WELL. BED IN LOW LOCKED POSITION. CALL LIGHT WITHIN REACH. WILL CONTINUE TO MONITOR.
[2017-08-25] MEDS: ALPRAZOLAM 1 MG TABLET PO PRN ×2 (04:06→21:58)
[2017-08-25 04:40] LABS: BASOPHILS % (AUTO) 0.3 % (0.0-2.0); HEMATOCRIT 45 % (39-51); HEMOGLOBIN 14.9 g/dL (13.5-17.5); LYMPHOCYTES # (AUTO) 1.4 /CMM (0.8-4.8); LYMPHOCYTES % (AUTO) 9.9 % (20.0-44.0); MEAN CORPUSCULAR HEMOGLOBIN 28 PG (26.0-33.0); MEAN CORPUSCULAR HGB CONC 33 g/dl (31.0-36.0); MEAN CORPUSCULAR VOLUME 84 fL (80-96); MONOCYTES # (AUTO) 0.2 /CMM (0.1-1.30); MONOCYTES % (AUTO) 1.4 % (2.0-12.0); NEUTROPHILS # (AUTO) 12.3 /CMM (1.8-8.9); NEUTROPHILS % (AUTO) 88.4 % (43.0-81.0); PLATELET COUNT (AUTO) 150 /CMM (150-450); RDW COEFFICIENT OF VARIATION 13.6 (11.5-15.0); RED BLOOD CELL COUNT(AUTO) 5.34 MIL/uL (4.5-6.0); WHITE BLOOD COUNT (AUTO) 13.9 K/uL (4.3-11.0)
[2017-08-25 05:05] LABS: CARBON DIOXIDE 25 mmol/L (21-32); CHLORIDE 104 mmol/L (98-107); CREATININE 1.2 mg/dL (0.6-1.3); GLUCOSE 142 mg/dL (74-106); MAGNESIUM 2.3 mg/dL (1.8-2.4); POTASSIUM 3.5 mmol/L (3.5-5.1); SODIUM SERUM 139 mmol/L (136-145); UREA NITROGEN, BLOOD 27 mg/dL (7-18)
--- NOTE | 2017-08-25 07:45 | NUR ---
ICU/RN - Initial Notes Received pt in bed asleep, arousable to verbal and tactile stimuli. Alert and oriented x3. Off Bipap at this time. On o2 @ 2lpm via nasal cannula, no respiratory distress. On tele reading SR 76. IV patent and intact with NS TKO infusing well. Safety and comfort measures in place. Will continue to monitor pt closely.
--- NOTE | 2017-08-25 08:30 | NUR ---
ICU/RN - Notes Assisted patient with breakfast. Pt able to eat and swallow with no issue. Pt states a lack of appetite. Encouraged pt to eat.
[2017-08-25] MEDS: ATORVASTATIN 40 MG TABLET PO SCH (08:46)
[2017-08-25] MEDS: DONEPEZIL 5 MG TABLET PO SCH (08:46)
[2017-08-25] MEDS: CLOPIDOGREL BISULFATE 75 MG TABLET PO SCH (08:46)
[2017-08-25] MEDS: ASPIRIN 81 MG TAB.CHEW PO SCH (08:46)
[2017-08-25] MEDS: methylPREDNISolone SOD SUCC 40 MG/ML VIAL IV SCH ×3 (08:47→16:00)
[2017-08-25] MEDS: LISINOPRIL (5MG) 5 MG TABLET PO SCH (09:02)
--- NOTE | 2017-08-25 09:10 | NUR ---
ICU/RN - Notes Pt noted with flat affect, minimal engagement with visitors and staff, appears depressed, and states "Everything is wrong" however does not elaborate. Dr Franklin made aware of pt's depressed behavior, ordered for Psych evaluation.
[2017-08-25] MEDS: MUPIROCIN OINT 2% 22 GM TUBE SCH ×2 (10:38→20:27)
--- NOTE | 2017-08-25 12:00 | NUR ---
ICU/RN - Notes Pt cleared for [facility] status per Dr Pate.
--- NOTE | 2017-08-25 12:06 | NUR ---
PER NURSE AND DR ONEILL, CT PULMONARY ANGIGRAM IS A ROUTINE, AND WILL BE DONE ON 08/26/2017
[2017-08-25] MEDS: ENOXAPARIN SODIUM 60 MG/0.6 ML DISP.SYRIN SQ SCH ×2 (12:36→20:25)
--- NOTE | 2017-08-25 15:10 | NUR ---
ICU/RN - Notes Pt seen by Dr Redman (Psychiatry) at bedside with new orders received.
--- NOTE | 2017-08-25 15:24 | NUR ---
ICU/RN - Notes Report called for Bhavna RN for continuity of care. Pt to be transferred to [facility]. Pt's nephew Nichol [phone] called and made aware of pt's transfer.
--- NOTE | 2017-08-25 16:00 | NUR ---
ICU/RN - Transfer Pt transferred to [facility]-1 per ACLS protocol in stable condition. All belongings taken with patient.
--- NOTE | 2017-08-25 16:24 | NUR ---
TRANSFER [facility] RN NOTE RCVD PT AWAKE AND ALERT X2, SHOWING NO S/O DISTRESS. PT STATES THAT HE HAS GENERALIZED PAIN 07/21. PAIN MEDICATION GIVEN ORDERED. SR ON TELE. IV SITE IN PLACE C/D/I/PATENT. NO S/O INFILTRATION/PHLEBITIS OBSERVED UPON FLUSHING LINE. WILL CONTINUE TO MONITOR PT FOR SAFETY AND COMFORT. CALL LIGHT WITHIN REACH. BED IN LOW AND LOCKED POSITION. UPDATE GIVE TO SOON, CRN CTA CHEST PENDING TO BE DONE.
[2017-08-25] MEDS: HYDROCODONE/APAP 5/325MG 1 EACH TABLET PO PRN (17:27)
--- NOTE | 2017-08-25 18:48 | NUR ---
[facility] RN NOTE PT REMAINS STABLE, VISITOR AT BEDSIDE. POOR PO INTAKE. PT STATES THAT HE HAS NO MORE PAIN AT THIS TIME. PT'S CARE WILL BE ENDORSED TO NANOTECHNOLOGY ENGINEERING TECHNICIAN RN FOR CONTINUITY OF CARE. CTA CHEST PENDING TO BE DONE WILL BE ENDORSED TO NANOTECHNOLOGY ENGINEERING TECHNICIAN RN.
--- NOTE | 2017-08-25 20:11 | NUR ---
received pt from day shift, alert, follows commands, SR, on 2L 02 sat well, tolerates diet, uses urinal, v/s stable, no pain, pt turned and repositioned, family at the bedside.
--- NOTE | 2017-08-25 20:13 | NUR ---
sbp 177/67 MEDICAL BILLING INSTRUCTOR traveling missionary called order for BP med received and carried out.
[2017-08-25] MEDS: hydrALAZINE HCL IV 20 MG VIAL IV PRN (20:24)
[2017-08-25] MEDS: TAMSULOSIN 0.4 MG CAP.SR.24H PO SCH (21:03)
[2017-08-25] MEDS: LEVOFLOXACIN 750 MG /D5W 150ML 750 MG in PREMIX 1 EA IV SCH (21:50)
[2017-08-26] VITALS: BP 111/71
[2017-08-26 04:00] VITALS: BP 117/63
[2017-08-26] MEDS: ALBUTEROL FS 2.5 MG/0.5 ML VIAL.NEB NEB SCH ×5 (04:06→19:56)
[2017-08-26] MEDS: IPRATROPIUM NEB FS 0.5 MG/2.5 ML AMPUL.NEB NEB SCH ×5 (04:06→19:56)
--- NOTE | 2017-08-26 04:10 | NUR ---
pt is resting in the bed, v/s stable, no pain, pt cleaned and changed.
--- NOTE | 2017-08-26 07:05 | NUR ---
RN INITIAL NOTES RECEIVED PT ASLEEP, EASILY AROUSABLE. ON 02 AT 2LPM VIA NC. NO RESPIRATORY DISTRESS NOTED. NO SOB NOTED. DENIES ANY PAIN. RFA #[address] FLUSHED WITH NS. PT COMFORTABLE. CALL LIGHT WITHIN REACH. WILL MONITOR.
[2017-08-26 07:53] LABS: BASOPHILS # (AUTO) 0.1 /CMM (0.0-0.2); BASOPHILS % (AUTO) 0.5 % (0.0-2.0); HEMATOCRIT 42 % (39-51); LYMPHOCYTES # (AUTO) 1.2 /CMM (0.8-4.8); LYMPHOCYTES % (AUTO) 7.7 % (20.0-44.0); MEAN CORPUSCULAR HEMOGLOBIN 28 PG (26.0-33.0); MEAN CORPUSCULAR HGB CONC 33 g/dl (31.0-36.0); MEAN CORPUSCULAR VOLUME 83 fL (80-96); MONOCYTES # (AUTO) 0.4 /CMM (0.1-1.30); MONOCYTES % (AUTO) 2.9 % (2.0-12.0); NEUTROPHILS # (AUTO) 13.5 /CMM (1.8-8.9); NEUTROPHILS % (AUTO) 88.9 % (43.0-81.0); PLATELET COUNT (AUTO) 149 /CMM (150-450); RDW COEFFICIENT OF VARIATION 13.8 (11.5-15.0); RED BLOOD CELL COUNT(AUTO) 5.04 MIL/uL (4.5-6.0); WHITE BLOOD COUNT (AUTO) 15.2 K/uL (4.3-11.0)
[2017-08-26 07:57] LABS: CALCIUM, SERUM 8.3 mg/dL (8.5-10.1); CARBON DIOXIDE 24 mmol/L (21-32); CHLORIDE 102 mmol/L (98-107); CREATININE 1.1 mg/dL (0.6-1.3); GLUCOSE 141 mg/dL (74-106); POTASSIUM 3.2 mmol/L (3.5-5.1); SODIUM SERUM 137 mmol/L (136-145); UREA NITROGEN, BLOOD 29 mg/dL (7-18)
[2017-08-26 08:00] VITALS: BP 143/74
[2017-08-26] MEDS: methylPREDNISolone SOD SUCC 40 MG/ML VIAL IV SCH ×3 (08:16→16:37)
[2017-08-26] MEDS: DONEPEZIL 5 MG TABLET PO SCH (08:16)
[2017-08-26] MEDS: ATORVASTATIN 40 MG TABLET PO SCH (08:16)
[2017-08-26] MEDS: CLOPIDOGREL BISULFATE 75 MG TABLET PO SCH (08:16)
[2017-08-26] MEDS: ASPIRIN 81 MG TAB.CHEW PO SCH (08:16)
[2017-08-26] MEDS: ESCITALOPRAM OXALATE (10 MG) 10 MG TABLET PO SCH (08:16)
[2017-08-26] MEDS: LISINOPRIL (5MG) 5 MG TABLET PO SCH (08:16)
[2017-08-26] MEDS: MUPIROCIN OINT 2% 22 GM TUBE SCH ×2 (08:17→21:08)
[2017-08-26] MEDS: ENOXAPARIN SODIUM 60 MG/0.6 ML DISP.SYRIN SQ SCH ×2 (08:22→21:07)
[2017-08-26] MEDS ORDERED: CT SWABBABLE VALVE TRANS SET 1 EA INFUS.SET MC ONE (08:50)
[2017-08-26] MEDS ORDERED: IOHEXOL-350 100 ML VIAL IV ONE (08:50)
[2017-08-26] MEDS ORDERED: IV NS 0.9% 250 ML IV ONE (08:51)
--- NOTE | 2017-08-26 09:00 | NUR ---
RN NOTES [address] PULMO ANGIO. NO RESPIRATORY DISTRESS NOTED. DENIES ANY PAIN. RFA #[address] LEFT IN STABLE CONDITION. 0900 PT BACK FROM PROCEDURE. PLACED COMFORTABLY IN THE ROOM. PT REMAINS A/OX4. DENIES ANY PAIN. NO SOB NOTED. CALL LIGHT WITHIN REACH. WILL MONITOR.
--- NOTE | 2017-08-26 10:22 | NUR ---
RN NOTES SEEN AND EXAMINED BY DR. MILTON ALONSO. AWARE OF LAB VALUES: WBC 15.2, HGB 14, HCT42, PLATELET 149. SODIUM 137, POTASSIUM 3.2, PHARMACY WILL REPLACE, BUN 29, CREA 1.1. ALSO AWAR EOF CT PUMLO ANGIO RESULT. NO ORDER MADE AT THIS TIME.
--- NOTE | 2017-08-26 10:40 | NUR ---
RN NOTES SEEN AND EXAMINED BY DR. ONEILL. PT ON 02 AT 2LPM VIA DC. NO RESPIRATORY DISTRESS NOTED. NO SOB NOTED. DENIES ANY PAIN. AWARE OF CT PULMO ANGIO RESULT. NO NEW ORDER.
--- NOTE | 2017-08-26 10:55 | NUR ---
PT UNAVAIBLE FOR RESP THERAPY. CURRENTLY WORKING WITH PT. WILL ATTEMPT AT A LATER TIME. SPO2 @ 94%, NO RESP DISTRESS NOTED.
[2017-08-26] MEDS ORDERED: POTASSIUM CHLORIDE 20 MEQ TAB.PRT.SR PO SCH (11:00)
[2017-08-26] MEDS: ALPRAZOLAM 1 MG TABLET PO PRN (11:54)
[2017-08-26 12:00] VITALS: BP_SYST 153; BP_SYST 159; BP_SYST 179; BP_DIAS 82; BP_DIAS 93
[2017-08-26 16:00] VITALS: BP 148/93
--- NOTE | 2017-08-26 18:39 | NUR ---
RN CLOSING NOTES PT REMAINS STABLE. A/OX4. ON 02 AT 2LPM VIA NC. NO RESPIRATORY DISTRESS NOTED. NO SOB NOTED. DENIES ANY PAIN. IV LINE IN PLACE. KEPT CLEAN AND DRY. REPOSITIONED Q2. KEPT BLE ELEVATED. ALL NEEDS ATTENDED AND MET. CALL LIGHT WITHIN REACH. WILL ENDORSE FOR CONTINUITY OF CARE.
--- NOTE | 2017-08-26 19:15 | NUR ---
RN NOTES PT IS AWAKE WATCHING TV ON BED. AOX3 ABLE TO MAKE KNOWN NEEDS. DENIES PAIN. TOLERATED O2 2LPM VIA NC SATING 92%. AFEBRILE. SR HR 89 ON TELE MONITOR. IV SITE ON RFA G 16 INTACT AND PATENT. ASSISTED TO THE BATHROOM FOR BOWEL AND BLADDER NOTED WITH SLIGHT SOB WHILE AMBULATING. ENCOURAGED TO USED O2 WHILE DOING ADLS AND PRACTICE BREATHING EXERCISE. KEPT PT CLEAN AND DRY. BED LOCKED AND IN LOWEST POSSIBLE POSITION. CALL LIGHT KEPT WITHIN EASY REACH REMINDED TO USED WHEN NEED ASSISTANCE. WILL CONTINUE TO MONITOR.
[2017-08-26 20:00] VITALS: BP 159/80
[2017-08-26] MEDS: TAMSULOSIN 0.4 MG CAP.SR.24H PO SCH (21:06)
[2017-08-27] VITALS: BP 144/68
[2017-08-27] MEDS: ALBUTEROL FS 2.5 MG/0.5 ML VIAL.NEB NEB SCH ×7 (00:13→23:30)
[2017-08-27] MEDS: IPRATROPIUM NEB FS 0.5 MG/2.5 ML AMPUL.NEB NEB SCH ×7 (00:13→23:30)
[2017-08-27 04:00] VITALS: BP 157/79
--- NOTE | 2017-08-27 07:00 | NUR ---
RN NOTES PATIENT REMAINED INS TABLE CONDITION. ASSISTED TO THE BATHROOM MORE OFTEN DUE TO BOWEL AND BLADDER. AFEBRILE. VS CONTROLLED. ALL DUE MEDICINE TOLERATED WELL. NO SIGNIFICANT CHANGES NOTED. KEPT CLEAN AND DRY. ENDORSED CONTINUITY OF CARE TO AM NURSE.
[2017-08-27 07:30] LABS: CALCIUM, SERUM 8.5 mg/dL (8.5-10.1); CARBON DIOXIDE 25 mmol/L (21-32); CHLORIDE 104 mmol/L (98-107); CREATININE 1.1 mg/dL (0.6-1.3); GLUCOSE 123 mg/dL (74-106); POTASSIUM 3.2 mmol/L (3.5-5.1); SODIUM SERUM 137 mmol/L (136-145); UREA NITROGEN, BLOOD 28 mg/dL (7-18)
--- NOTE | 2017-08-27 07:31 | NUR ---
RN NOTES RECEIVED PT FROM SHROUDMAN IN STABLE CONDITION, RESTING IN BED A&0X3, ON 2L NC WITH NO SOB OR DISTRESS NOTED. SR ON THE TELE MONITOR HR 76. BED LOCKED AND IN LOWEST POSITION, CALL LIGHT WITHIN REACH, SIDE RAILS UPX3, WILL CONT TO MONITOR.
[2017-08-27] MEDS: ALPRAZOLAM 1 MG TABLET PO PRN ×3 (07:39→22:22)
[2017-08-27 07:53] LABS: BASOPHILS % (AUTO) 0.1 % (0.0-2.0); HEMATOCRIT 41 % (39-51); HEMOGLOBIN 13.7 g/dL (13.5-17.5); LYMPHOCYTES # (AUTO) 1.6 /CMM (0.8-4.8); LYMPHOCYTES % (AUTO) 9.6 % (20.0-44.0); MEAN CORPUSCULAR HEMOGLOBIN 28 PG (26.0-33.0); MEAN CORPUSCULAR HGB CONC 33 g/dl (31.0-36.0); MEAN CORPUSCULAR VOLUME 84 fL (80-96); MONOCYTES # (AUTO) 0.3 /CMM (0.1-1.30); MONOCYTES % (AUTO) 1.8 % (2.0-12.0); NEUTROPHILS # (AUTO) 15.1 /CMM (1.8-8.9); NEUTROPHILS % (AUTO) 88.5 % (43.0-81.0); PLATELET COUNT (AUTO) 152 /CMM (150-450); RDW COEFFICIENT OF VARIATION 13.7 (11.5-15.0); RED BLOOD CELL COUNT(AUTO) 4.91 MIL/uL (4.5-6.0); WHITE BLOOD COUNT (AUTO) 17.1 K/uL (4.3-11.0)
[2017-08-27 08:00] VITALS: BP 181/84
--- NOTE | 2017-08-27 08:00 | NUR ---
RN NOTES PT EXTREMELY ANXIOUS, XANAX GIVEN.
[2017-08-27] MEDS: methylPREDNISolone SOD SUCC 40 MG/ML VIAL IV SCH ×2 (08:43→13:17)
[2017-08-27] MEDS: LISINOPRIL (5MG) 5 MG TABLET PO SCH ×2 (08:44→17:42)
[2017-08-27] MEDS: ATORVASTATIN 40 MG TABLET PO SCH (08:44)
[2017-08-27] MEDS: ASPIRIN 81 MG TAB.CHEW PO SCH (08:44)
[2017-08-27] MEDS: ESCITALOPRAM OXALATE (10 MG) 10 MG TABLET PO SCH (08:45)
[2017-08-27] MEDS: CLOPIDOGREL BISULFATE 75 MG TABLET PO SCH (08:45)
[2017-08-27] MEDS: ENOXAPARIN SODIUM 60 MG/0.6 ML DISP.SYRIN SQ SCH (08:46)
[2017-08-27] MEDS: DONEPEZIL 5 MG TABLET PO SCH (08:46)
[2017-08-27] MEDS: MUPIROCIN OINT 2% 22 GM TUBE SCH ×2 (08:47→21:46)
[2017-08-27] MEDS: POTASSIUM CHLORIDE 20 MEQ TAB.PRT.SR PO SCH ×2 (10:46→11:30)
[2017-08-27 12:00] VITALS: BP 185/86
--- NOTE | 2017-08-27 12:00 | NUR ---
RN NOTES PT BP IN THE 180S, HYDRALAZINE GIVEN, CHANGED IV TO PO. PT HAS NO IV ACCESS, ATTEMPTED 3X TO START IV. MIDLINE ORDERED, AWAITING MIDLINE NURSE.
[2017-08-27] MEDS: hydrALAZINE HCL IV 20 MG VIAL IV PRN (13:18)
[2017-08-27] MEDS ORDERED: hydrALAZINE HCL 25 MG TABLET PO ONE (14:30)
[2017-08-27] MEDS ORDERED: hydrALAZINE HCL 25 MG TABLET PO PRN (15:30)
[2017-08-27 16:00] VITALS: BP 173/78
[2017-08-27] MEDS: LACTOBACILLUS RHAMNOSUS GG 1 EACH CAP.SPRINK PO SCH (17:41)
--- NOTE | 2017-08-27 18:37 | NUR ---
RN NOTES PT RESTING IN BED, LESS AGITATED NO SOB OR DISTRESS NOTED. NO SIGNIFICANT CHANGES THROUGHOUT THE SHIFT, REMAINED IN STABLE CONDITION. ALL NEEDS MET. BED LOCKED AND IN LOWEST POSITION, SIDE RAILS UPX3, BED ALARM ON, WILL ENDORSE TO ONCOMING SHIFT.
--- NOTE | 2017-08-27 19:05 | NUR ---
RN OPENING NOTES RECEIVED REPORT FROM RIKA GARCIA. PATIENT A/A/O X2-3 W/ SOME CONFUSION. BREATHING EVEN & UNLABORED ON O2 2L VIA NC. DENIES SOB OR DIFFICULTY BREATHING. PULSES PRESENT. NO IV SITE PRESENT @ THIS TIME. DENIES ANY PAIN OR DISCOMFORT @ THIS TIME. SAFETY MEASURES IN PLACE W/ SIDE RAILS UP, BED LOCKED IN LOWEST POSITION & CALL LIGHT WITHIN REACH. CONTACT ISOLATION PRECAUTIONS IN PLACE. WILL CONTINUE TO MONITOR.
[2017-08-27 20:00] VITALS: BP 165/104
[2017-08-27] MEDS: TAMSULOSIN 0.4 MG CAP.SR.24H PO SCH (21:44)
[2017-08-27] MEDS: RIVAROXABAN 15 MG TABLET PO SCH (21:45)
[2017-08-27] MEDS: LEVOFLOXACIN 750 MG /D5W 150ML 750 MG in PREMIX 1 EA IV SCH (22:24)
--- NOTE | 2017-08-27 23:00 | NUR ---
RN NOTES MIDLINE PLACED IN LEFT UPPER ARM BY ZECHARIAH. PATIENT TOLERATED WELL. MIDLINE INTACT & FLUSHING WELL.
--- NOTE | 2017-08-28 | NUR ---
RN NOTES PATIENT TRYING TO PULL OUT MIDLINE & GET OUT OF BED. PLACED CALL TO EPIC & SPOKE TO DR GRANDA W/ ORDERS FOR SOFT BILATERAL WRIST RESTRAINTS.
[2017-08-28] MEDS: HYDROCODONE/APAP 5/325MG 1 EACH TABLET PO PRN ×2 (01:15→08:45)
[2017-08-28] MEDS: IPRATROPIUM NEB FS 0.5 MG/2.5 ML AMPUL.NEB NEB SCH ×4 (03:30→15:34)
[2017-08-28] MEDS: ALBUTEROL FS 2.5 MG/0.5 ML VIAL.NEB NEB SCH ×4 (03:30→15:34)
[2017-08-28 04:00] VITALS: BP 144/94
--- NOTE | 2017-08-28 07:05 | NUR ---
RN INITIAL NOTE PATIENT RECEIVED IN BED, AWAKE, ALERT AND ORIENTED. ABLE TO MAKE NEEDS KNOWN. NO S/S OF PAIN OR DISCOMFORT. DENIES PAIN AT THIS TIME. RESPIRATIONS ARE EVEN AND UNLABORED. SATING WELL ON 2L NASAL CANULA. NO S/S OF RESPIRATORY DISTRESS OR SOB. IV SITE FLUSHED, PATENT. SKIN IS WARM AND DRY TO TOUCH. SAFETY PRECAUTIONS IMPLEMENTED. BED IN LOCKED, LOW POSITION WITH TWO SIDE RAILS UP. CALL LIGHT AND BELONGINGS WITHIN EASY REACH. WILL CONTINUE TO MONITOR.
[2017-08-28 07:22] LABS: CALCIUM, SERUM 8.5 mg/dL (8.5-10.1); CARBON DIOXIDE 25 mmol/L (21-32); CHLORIDE 104 mmol/L (98-107); CREATININE 1.1 mg/dL (0.6-1.3); GLUCOSE 96 mg/dL (74-106); POTASSIUM 3.3 mmol/L (3.5-5.1); SODIUM SERUM 138 mmol/L (136-145); UREA NITROGEN, BLOOD 25 mg/dL (7-18)
[2017-08-28 08:00] VITALS: BP 149/78
[2017-08-28] MEDS: LACTOBACILLUS RHAMNOSUS GG 1 EACH CAP.SPRINK PO SCH (08:44)
[2017-08-28] MEDS: ALPRAZOLAM 1 MG TABLET PO PRN ×2 (08:45→16:48)
[2017-08-28] MEDS: ATORVASTATIN 40 MG TABLET PO SCH (08:45)
[2017-08-28] MEDS: ESCITALOPRAM OXALATE (10 MG) 10 MG TABLET PO SCH (08:45)
[2017-08-28] MEDS: DONEPEZIL 5 MG TABLET PO SCH (08:46)
[2017-08-28] MEDS: LISINOPRIL (5MG) 5 MG TABLET PO SCH ×2 (08:46→17:08)
[2017-08-28] MEDS: MUPIROCIN OINT 2% 22 GM TUBE SCH (08:46)
[2017-08-28] MEDS: ASPIRIN 81 MG TAB.CHEW PO SCH (08:46)
[2017-08-28] MEDS: RIVAROXABAN 15 MG TABLET PO SCH (08:54)
[2017-08-28] MEDS ORDERED: predniSONE 20 MG TABLET PO SCH (09:00)
[2017-08-28] MEDS ORDERED: POTASSIUM CHLORIDE 20 MEQ TAB.PRT.SR PO SCH (11:30)
[2017-08-28] MEDS ORDERED: LISI5TAB45 PO (12:48)
[2017-08-28] MEDS ORDERED: LACT1CAP72 PO (12:48)
[2017-08-28] MEDS ORDERED: HYDR-4076 PO (12:48)
[2017-08-28] MEDS ORDERED: PRED10TA PO (12:48)
[2017-08-28] MEDS ORDERED: PRED20TA PO ×2 (12:48)
[2017-08-28] MEDS ORDERED: ESCI10TA PO (12:48)
[2017-08-28] MEDS ORDERED: Rivaroxaban PO (12:48)
[2017-08-28 16:00] VITALS: BP 161/71
[2017-08-28 17:08] VITALS: BP 161/94
--- NOTE | 2017-08-28 17:10 | NUR ---
RN CLOSING NOTE PATIENT DISCHARGED TO [facility]. REPORT CALLED. PICTURES TAKEN AND PLACED IN CHART. DID NOT REMOVE IV SITE AT NURSES REQUEST. LEFT VIA AMBULANCE. Addendum: 08/28/17 at 1745 by HANNA LEAL RN THE NAME OF THE NURSE I GAVE REPORT TO WAS GLORIA
== END 2017-08-28 17:08 | DRG 177 ==
LOC: ER 19:23 → ICU 21:09 → TELE-TD 08-25 16:27 → TELE1 08-26 07:24 → MEDSG1 08-27 15:35
PROVIDERS: ADMIT Nurse Practitioner Acute Care; ATTEND Nurse Practitioner Acute Care
PROC: 5A09457 Assistance with Respiratory Ventilation, 24-96 Consecutive Hours, Continuous Positive Airway Pressure (ICD-10-PCS; principal; 2017-08-23)
PROC: 05H633Z Insertion of Infusion Device into Left Subclavian Vein, Percutaneous Approach (ICD-10-PCS; 2017-08-27)
DX: J15.6 Pneumonia due to other Gram-negative bacteria (principal); J96.01 Acute respiratory failure with hypoxia; I21.A1 Myocardial infarction type 2; G92 Toxic encephalopathy; I82.431 Acute embolism and thrombosis of right popliteal vein; I13.0 Hypertensive heart and chronic kidney disease with heart failure and stage 1 through stage 4 chronic kidney disease, or unspecified chronic kidney disease; F32.2 Major depressive disorder, single episode, severe without psychotic features; I50.32 Chronic diastolic (congestive) heart failure; J44.0 Chronic obstructive pulmonary disease with (acute) lower respiratory infection; J44.1 Chronic obstructive pulmonary disease with (acute) exacerbation; J15.9 Unspecified bacterial pneumonia; I27.20 Pulmonary hypertension, unspecified; E78.5 Hyperlipidemia, unspecified; E87.6 Hypokalemia; F03.90 Unspecified dementia, unspecified severity, without behavioral disturbance, psychotic disturbance, mood disturbance, and anxiety; F41.9 Anxiety disorder, unspecified; K21.9 Gastro-esophageal reflux disease without esophagitis; N18.9 Chronic kidney disease, unspecified; Z86.73 Personal history of transient ischemic attack (TIA), and cerebral infarction without residual deficits; Z87.01 Personal history of pneumonia (recurrent); Z86.711 Personal history of pulmonary embolism; D72.828 Other elevated white blood cell count; N40.0 Benign prostatic hyperplasia without lower urinary tract symptoms; Z79.899 Other long term (current) drug therapy; Z91.14 Patient's other noncompliance with medication regimen
CPT/HCPCS: 36415; 36569; 36600; 71010-TC; 80048-TC; 81000-TC; 82803-TC; 83605-TC; 83735-TC; 83880; 84100-TC; 84484-TC; 85025-TC; 85730-TC; 87040-TC; 87081-TC; 87086-TC; 93970-TC; 94799-TC; 97116-TC; 97530-TC; 99082-TC; A4216; A4606; J0360; J0456; J0696; J1650; J1956; J2920; J3475; J3480; J3490; J7030; J7040; J7050; J7060; Q9967; Z7610

== ENCOUNTER 2017-09-25 11:48 | Outpatient (CLI) | payer MEDICARE, OTHER ==
[~2017-09-25 11:48] MED LIST changes: -CLOP75TA2 PO; +ESCI10TA PO; +HYDR-4076 PO; +LACT1CAP72 PO; +LISI5TAB45 PO; +PRED10TA PO; -PRED20TA GT; +Rivaroxaban PO
== END 2017-09-25 23:59 | disposition home or self-care (01) ==
LOC: CARD 11:48
PROVIDERS: ATTEND Internal Medicine Interventional Cardiology
DX: I82.431 Acute embolism and thrombosis of right popliteal vein (principal); I82.411 Acute embolism and thrombosis of right femoral vein
CPT/HCPCS: 93970-TC

== ENCOUNTER 2018-03-20 21:07 | Emergency (ER) | payer MEDICARE, OTHER ==
[~2018-03-20] VITALS: Ht 172.7 cm; Wt 74.4 kg
[~2018-03-20 21:07] MED LIST changes: -ALBU8.5H2 IH; +ALBU8.5H8 IH; +ASPI-1169 PO; -ASPI81TA2 PO; -HYDR-3326 PO; +HYDR-3974 PO; -LEVO500T15 PO; +LEVO500T2 PO
--- NOTE | 2018-03-20 21:45 | NUR ---
PT BB SELF C/O ITCHING AND HIVES THROUGHOUT BODY. PT IS AAOX4. HIVES NOTED THROUGHOUT PT'S BODY. VSS. NO S/S OF ACUTE DISTRESS NOTED IN PT. RESP EVEN AND UNLABORED. PT PLACED IN GOWN AND ON MUSIC LIBRARY ASSISTANT AND POX. PT SAFETY AND COMFORT MEASURES IN PLACE. AWAITING MD FOR EVAL.
--- NOTE | 2018-03-20 22:20 | NUR ---
PATIENTS RETORT UNLOADER CRISTIANE BLACKWOOD CALLED TO UPDATE CONTACT INFORMATION
[2018-03-20] MEDS ORDERED: methylPREDNISolone SOD SUCC 125 MG/2ML VIAL IV ONE (22:30)
[2018-03-20] MEDS ORDERED: diphenhydrAMINE HCL 50 MG/ML VIAL IV ONE (22:30)
[2018-03-20] MEDS ORDERED: methylPREDNISolone SOD SUCC 125 MG/2ML VIAL ONE (22:50)
[2018-03-20] MEDS ORDERED: diphenhydrAMINE HCL 50 MG/ML VIAL ONE (22:51)
[2018-03-20 23:02] LABS: BASOPHILS % (AUTO) 0.3 % (0.0-2.0); EOSINOPHILS % (AUTO) 1.9 % (0.0-6.0); HEMATOCRIT 37 % (39-51); HEMOGLOBIN 12.6 g/dL (13.5-17.5); LYMPHOCYTES # (AUTO) 0.9 /CMM (0.8-4.8); LYMPHOCYTES % (AUTO) 10.7 % (20.0-44.0); MEAN CORPUSCULAR HGB CONC 34 g/dl (31.0-36.0); MEAN CORPUSCULAR VOLUME 79 fL (80-96); MONOCYTES # (AUTO) 0.4 /CMM (0.1-1.30); MONOCYTES % (AUTO) 4.6 % (2.0-12.0); NEUTROPHILS # (AUTO) 7.1 /CMM (1.8-8.9); NEUTROPHILS % (AUTO) 82.5 % (43.0-81.0); PLATELET COUNT (AUTO) 168 /CMM (150-450); RDW COEFFICIENT OF VARIATION 15.3 (11.5-15.0); RED BLOOD CELL COUNT(AUTO) 4.73 MIL/uL (4.5-6.0); WHITE BLOOD COUNT (AUTO) 8.6 K/uL (4.3-11.0)
[2018-03-20 23:15] LABS: CALCIUM, SERUM 8.4 mg/dL (8.5-10.1); CARBON DIOXIDE 27 mmol/L (21-32); CHLORIDE 104 mmol/L (98-107); CREATININE 1.3 mg/dL (0.6-1.3); GLUCOSE 110 mg/dL (74-106); POTASSIUM 3.9 mmol/L (3.5-5.1); SODIUM SERUM 137 mmol/L (136-145); UREA NITROGEN, BLOOD 22 mg/dL (7-18)
[2018-03-20 23:19] LABS: INR 1.1 (0.87-1.13)
[2018-03-20] MEDS ORDERED: LORAZEPAM INJ 2 MG/ML VIAL ONE (23:23)
[2018-03-20 23:28] LABS: ALANINE AMINOTRANSFERASE 11 U/L (12-78); ALBUMIN 3.4 g/dL (3.4-5.0); ALKALINE PHOSPHATASE 65 U/L (46-116); ASPARTATE AMINOTRANSFERASE 18 U/L (15-37); BILIRUBIN,DIRECT 0.2 mg/dL (0.0-0.2); BILIRUBIN,TOTAL 0.9 mg/dL (0.2-1.0)
--- NOTE | 2018-03-21 00:54 | NUR ---
ASSUMED D/C CARE ONLY AT THIS TIME ON BEHALF OF PRIMARY NURSE EDGAR. Patient discharged to home in stable condition. Written and verbal after care instructions given. Patient verbalizes understanding of instruction. Ambulatory with a steady gait accompanied by s/o. IV removed. Catheter intact and site benign. Pressure and 4x4 applied to site. No bleeding noted.
[2018-03-21 00:56] VITALS: BP 126/65
== END 2018-03-21 00:57 | disposition home or self-care (01) ==
LOC: ER 21:11
DX: L50.8 Other urticaria (principal); J44.9 Chronic obstructive pulmonary disease, unspecified; F17.200 Nicotine dependence, unspecified, uncomplicated; Z86.711 Personal history of pulmonary embolism; Z86.73 Personal history of transient ischemic attack (TIA), and cerebral infarction without residual deficits; Z60.2 Problems related to living alone; Z79.82 Long term (current) use of aspirin
CPT/HCPCS: 36415; 80048; 80076; 85025; 85730; 96374; 96375; 99284; A4606; J1200; J2930; J2060; Z7610

== ENCOUNTER 2018-04-05 12:27 | Inpatient (IN) | payer MEDICARE, OTHER ==
[~2018-04-05] VITALS: Ht 185.4 cm; Wt 64.9 kg
--- NOTE | 2018-04-05 12:31 | NUR ---
CODE STROKE ACTIVATED
--- NOTE | 2018-04-05 12:34 | NUR ---
PT TO CT
--- NOTE | 2018-04-05 12:34 | NUR ---
IV ACCESS STARTED. BLOOD DRAWN FOR LABS. EKG DONE AT BS.
--- NOTE | 2018-04-05 12:35 | NUR ---
CALLED [facility] TELESTROKE HOTLINE, SPOKE WITH RAY, PRESENTED PT, AWAITING CALL BACK FROM (NEUROLOGIST)
--- NOTE | 2018-04-05 12:35 | NUR ---
PT TAKEN TO CT.
[2018-04-05] MEDS ORDERED: IOHEXOL-350 100 ML VIAL IV ONE (12:36)
[2018-04-05 12:38] LABS: BASOPHILS # (AUTO) 0.5 /CMM (0.0-0.2); BASOPHILS % (AUTO) 2.6 % (0.0-2.0); EOSINOPHILS % (AUTO) 0.3 % (0.0-6.0); HEMATOCRIT 42 % (39-51); HEMOGLOBIN 13.7 g/dL (13.5-17.5); LYMPHOCYTES # (AUTO) 0.8 /CMM (0.8-4.8); LYMPHOCYTES % (AUTO) 4.5 % (20.0-44.0); MEAN CORPUSCULAR HGB CONC 33 g/dl (31.0-36.0); MEAN CORPUSCULAR VOLUME 80 fL (80-96); MONOCYTES # (AUTO) 0.5 /CMM (0.1-1.30); MONOCYTES % (AUTO) 2.9 % (2.0-12.0); NEUTROPHILS % (AUTO) 89.7 % (43.0-81.0); PLATELET COUNT (AUTO) 229 /CMM (150-450); RDW COEFFICIENT OF VARIATION 14.5 (11.5-15.0); WHITE BLOOD COUNT (AUTO) 17.9 K/uL (4.3-11.0)
--- NOTE | 2018-04-05 12:38 | NUR ---
RECEIVED CALL FROM NEIGHBOR LYNETTE BRICEÑO , GAVE ME NUMBER FOR HIS NEPHEW MIRIAM KEN .
[2018-04-05 12:47] LABS: CALCIUM, SERUM 8.8 mg/dL (8.5-10.1); CARBON DIOXIDE 28 mmol/L (21-32); CHLORIDE 100 mmol/L (98-107); CREATININE 1.3 mg/dL (0.6-1.3); GLUCOSE 130 mg/dL (74-106); POTASSIUM 4.3 mmol/L (3.5-5.1); SODIUM SERUM 134 mmol/L (136-145); UREA NITROGEN, BLOOD 24 mg/dL (7-18)
[2018-04-05 12:49] LABS: INR 1.03 (0.85-1.15)
[2018-04-05 12:52] LABS: ALANINE AMINOTRANSFERASE 11 U/L (12-78); ALBUMIN 3.6 g/dL (3.4-5.0); ALKALINE PHOSPHATASE 63 U/L (46-116); ASPARTATE AMINOTRANSFERASE 20 U/L (15-37); BILIRUBIN,DIRECT 0.1 mg/dL (0.0-0.2); BILIRUBIN,TOTAL 0.7 mg/dL (0.2-1.0); CHOLESTEROL 172 mg/dL (<200); HDL CHOLESTEROL 69 mg/dL (40-60); LDL 112 mg/dL (0-99); TOTAL PROTEIN, SERUM 9.3 g/dL (6.4-8.2); TRIGLYCERIDES 84 mg/dL (30-150)
[2018-04-05 12:54] LABS: TROPONIN I < 0.017 ng/mL (0.00-0.056)
[2018-04-05] MEDS ORDERED: IV NS 0.9% 500 ML BAG IV ONE (13:00)
--- NOTE | 2018-04-05 14:32 | NUR ---
[facility]-1 FOR STROKE, ADMITTING
--- NOTE | 2018-04-05 14:46 | NUR ---
REPORT GIVEN TO RADHA MOTTA FOR CONTINUITY OF CARE
[2018-04-05] MEDS ORDERED: IV NS 0.9% 1,000 ML IV PRN (15:26)
[2018-04-05 15:30] VITALS: BP 135/68
[2018-04-05] MEDS ORDERED: MAGNESIUM HYDROXIDE 30 ML UDC PO PRN (15:30)
[2018-04-05] MEDS ORDERED: ACETAMINOPHEN 325 MG TABLET PO PRN (15:30)
[2018-04-05] MEDS ORDERED: ZOLPIDEM TARTRATE 5 MG TABLET PO PRN (15:30)
[2018-04-05] MEDS ORDERED: hydrALAZINE HCL IV 20 MG VIAL IV PRN (15:30)
[2018-04-05] MEDS ORDERED: BLOOD SUGAR DIAGNOSTIC 1 EACH STRIP IN SCH (15:30)
[2018-04-05] MEDS ORDERED: Z GUARD REMEDY 2 OZ OINT TP PRN (15:30)
[2018-04-05] MEDS ORDERED: MAG HYDROX/AL HYDROX/SIMETH 30 ML UDC PO PRN (15:30)
--- NOTE | 2018-04-05 15:30 | NUR ---
RN NOTES RECEIVED PT ON BED , LETHARGIC , ORIENTED X2-3, SLOW TO RESPOND ,ON 3L O2 N/C , RESPIRATION EVEN AND UNLABORED, NO SOB NOTED, ON TELE SR HR IN 90'S , L AC IV SITE G 18 AND L WRIST IV SITE G 20 CDI, [place] LOWER EXTREMISTS EDEMA AND RASHES NOTED, ELEVATED ON PILLOW, BED LOCKED AND IN LOWEST POSITION , CALL LIGHT WITHIN EASY REACH, CONTINUE TO MONITOR PT CLOSELY.
--- NOTE | 2018-04-05 15:58 | NUR ---
TEXTED DR. MOHAN FOR MRI APPROVAL.
--- NOTE | 2018-04-05 16:00 | NUR ---
DR. MOHAN TEXTED BACK,ON HOLD FOR NOW HE WILL LET US KNOW.
[2018-04-05 16:56] LABS: THYROID STIMULATING HORMONE 1.009 uIU/mL (0.358-3.74)
[2018-04-05] MEDS: ENOXAPARIN SODIUM 40 MG/0.4 ML DISP.SYRIN SQ SCH (16:59)
[2018-04-05 17:00] VITALS: BP 138/69
[2018-04-05] MEDS ORDERED: ALBUTEROL FS 2.5 MG/3 ML VIAL.NEB NEB PRN (17:30)
[2018-04-05] MEDS ORDERED: DEXTROSE 50%-WATER 50 ML DISP.SYRIN IV PRN (18:00)
[2018-04-05] MEDS: INSULIN REGULAR, HUMAN 100 UNIT/ML 3 ML VIAL SQ PRN (18:37)
[2018-04-05] MEDS: BLOOD SUGAR DIAGNOSTIC 1 EACH STRIP IN SCH (18:37)
--- NOTE | 2018-04-05 18:39 | NUR ---
RN NOTES PT IS MORE ALERT , VSS STABLE , NS AT 75CC/HR RUNNING VIA L AC IV SITE , NO SIGNIFICANT NEUROLOGIC CHANGES NOTED ON THIS SHIFT , WILL ENDOSE TO RECEPTIONIST AIRLINE LOUNGE NURSE FOR [facility]
--- NOTE | 2018-04-05 18:46 | NUR ---
RN NOTES DR POTTER NOTIFED REGARDING TROPONIN .117, NO NEW ORDER RECEIVED .
[2018-04-05 20:00] VITALS: BP 109/61
--- NOTE | 2018-04-05 20:00 | NUR ---
BRIDGETT RN NOTES RECEIVED PTS ON BED AWAKE ALERT LETHARGIC, VERBALLY RESPONSIVE ABLE TO MAKE NEEDS KNOWN, ON TELE SINUS ON THE MONITOR , NO SOB NO DISTRESS NOTES ON O2 AT 3 LITERS NC SATING 96% IV HEPLOCK ON LEFT UA INTACT AND PATENT , DUE MEDS GIVEN ORDERED ABLE TO SWALLOW MEDS CRUSH AND MIX WITH APPLE SAUCE , ALL NEEDS ATTENDED TOO CALL LIGHT WITHIN REACH KEPT PTS CLEAN DRY AND COMFORTABLE, V/S STABLE AFEBRILE , WILL CONTINUE TO MONITOR PTS.
[2018-04-05] MEDS: ALBUTEROL FS 2.5 MG/0.5 ML VIAL.NEB NEB SCH (20:01)
[2018-04-05] MEDS: SIMVASTATIN 40 MG TABLET PO SCH (21:32)
[2018-04-05] MEDS: TAMSULOSIN 0.4 MG CAP.SR.24H PO SCH (21:32)
[2018-04-05 21:45] LABS: APPEARANCE,URINE CLEAR (CLEAR); BILIRUBIN,URINE NEGATIVE (NEGATIVE); BLOOD, URINE 3+ Ery/uL (NEGATIVE); COLOR,URINE YELLOW (YELLOW); KETONES,URINE TRACE (NEGATIVE); LEUKOCYTE ESTERASE ,URINE NEGATIVE (NEGATIVE); NITRITE, URINE NEGATIVE (NEGATIVE); PROTEIN,URINE 1+ mg/dl (NEGATIVE); UGLUCOSE NEGATIVE (NEGATIVE); UROBILINOGEN,URINE 0.2 EU/dL (0.2)
[2018-04-05 22:00] LABS: BACTERIA,URINE None seen /HPF (None Seen); MUCUS,URINE Rare /LPF (None Seen); SQUAMOUS EPITHELIAL CELL,UR Few /HPF (None Seen); WBC,URINE 0-2 /HPF (0-3)
[2018-04-06] VITALS (9 sets, daily range): BP systolic 91–170; BP diastolic 44–70
--- NOTE | 2018-04-06 | NUR ---
christy rn notes blood sugar for 12mn is 118 mg/dl no coverage given per sliding scale , pts is awake alert no sob no distress noted continue on at 3 liters via cn sating 98%, will continue to monitor
--- NOTE | 2018-04-06 00:20 | NUR ---
christy rn notes pts noted with episode of confusion v/s stable afebrile sating 98% 0n o2 via nc at 6liters , reorient pts , visual checked done frequently,all needs attended too ,pts c/o of generalized dilaudid given as ordered will continue to minitor pts. Addendum: 04/06/18 at 0138 by JOHNNY DOMINGUEZ RN note this charting was not intended to this pts
[2018-04-06] MEDS: INSULIN REGULAR, HUMAN 100 UNIT/ML 3 ML VIAL SQ PRN ×2 (01:20→05:41)
[2018-04-06] MEDS: BLOOD SUGAR DIAGNOSTIC 1 EACH STRIP IN SCH ×4 (05:37→17:19)
[2018-04-06 06:10] LABS: BASOPHILS % (AUTO) 0.2 % (0.0-2.0); EOSINOPHILS % (AUTO) 0.5 % (0.0-6.0); HEMATOCRIT 32 % (39-51); HEMOGLOBIN 10.9 g/dL (13.5-17.5); LYMPHOCYTES # (AUTO) 1.4 /CMM (0.8-4.8); LYMPHOCYTES % (AUTO) 10.6 % (20.0-44.0); MEAN CORPUSCULAR HGB CONC 34 g/dl (31.0-36.0); MEAN CORPUSCULAR VOLUME 81 fL (80-96); MONOCYTES # (AUTO) 0.7 /CMM (0.1-1.30); MONOCYTES % (AUTO) 5.4 % (2.0-12.0); NEUTROPHILS # (AUTO) 11.2 /CMM (1.8-8.9); NEUTROPHILS % (AUTO) 83.3 % (43.0-81.0); PLATELET COUNT (AUTO) 168 /CMM (150-450); RDW COEFFICIENT OF VARIATION 15.3 (11.5-15.0); RED BLOOD CELL COUNT(AUTO) 3.98 MIL/uL (4.5-6.0); WHITE BLOOD COUNT (AUTO) 13.4 K/uL (4.3-11.0)
[2018-04-06 06:23] LABS: CALCIUM, SERUM 8.2 mg/dL (8.5-10.1); CARBON DIOXIDE 29 mmol/L (21-32); CHLORIDE 103 mmol/L (98-107); CREATININE 1.2 mg/dL (0.6-1.3); GLUCOSE 97 mg/dL (74-106); MAGNESIUM 1.9 mg/dL (1.8-2.4); PHOSPHORUS 3.1 mg/dL (2.5-4.9); POTASSIUM 3.7 mmol/L (3.5-5.1); SODIUM SERUM 140 mmol/L (136-145); UREA NITROGEN, BLOOD 20 mg/dL (7-18)
--- NOTE | 2018-04-06 06:27 | NUR ---
christy rn notes blood sugar for 6am is 99mg/dl no insulin coverage given per sliding scale, pts more alert at this time v/s stable afebrile no sob no distress noted pts remains sr on the monitor.will endorse pts to rn day shift for continuity of care.
[2018-04-06 07:31] LABS: CHOLESTEROL 123 mg/dL (<200); HDL CHOLESTEROL 42 mg/dL (40-60); LDL 77 mg/dL (0-99); TRIGLYCERIDES 55 mg/dL (30-150)
--- NOTE | 2018-04-06 07:31 | NUR ---
BRIDGETT RN NOTES: RECEIVED PT IN BED, AWAKE ALERT, ABLE TO ANSWER ALL QUESTIONS PROPERLY. PLAN OF CARE DISCUSSED WITH PT. PT ON TELE MONITOR- NSR 71 BPM. PT HAS IV LT AC #18 GAUGE.HEP LOCK IN TACT. NO SIGNS/SYMPTOMS OF INFECTION. BED IN LOWEST AND LOCKED POSITION. CALL LIGHT WITHIN REACH. SPEECH CLEAR. ABLE TO LIFT BOTH ARMS AND LEGS, NO DRIFTING NOTED. GENERALIZED WEAKNESS. WILL CONTINUE TO MONITOR. DVT PUMP BILATERAL LEGS IN PLACE.
[2018-04-06] MEDS: ALBUTEROL FS 2.5 MG/0.5 ML VIAL.NEB NEB SCH ×2 (07:55→19:44)
[2018-04-06] MEDS: ASPIRIN EC 325 MG TABLET.DR PO SCH (08:49)
[2018-04-06] MEDS: PANTOPRAZOLE 40 MG TABLET.DR PO SCH (08:49)
[2018-04-06] MEDS: LISINOPRIL (10MG) 10 MG TABLET PO SCH (08:50)
[2018-04-06] MEDS: FLUTICASONE/VILANTEROL 1 EACH BLST.W.DEV IH SCH (08:50)
[2018-04-06] MEDS: CLOPIDOGREL BISULFATE 75 MG TABLET PO SCH (08:50)
[2018-04-06] MEDS: DOCUSATE SODIUM 100 MG CAPSULE PO SCH (08:50)
--- NOTE | 2018-04-06 09:17 | NUR ---
BRIDGETT RN NOTES DR GONZALEZ AT BEDSIDE, OK TO DO MRI. CALLED [facility]. STATED MRI STILL PENDING. AWAITING FOR RETURN CALL. ULTRASOUND BEING DONE AT BEDSIDE NOW.
--- NOTE | 2018-04-06 10:17 | NUR ---
BRIDGETT RN NOTES PHYSICAL THERAPIST AT BEDSIDE. PT ABLE TO AMBULATE 10FT, WITH MINIMAL ASSISTANCE.
--- NOTE | 2018-04-06 11:57 | NUR ---
ECHO BEING DONE AT BEDSIDE AT THIS TIME ORDERED. ALL NEEDS ATTENDED. PATIENT AWAKE AND VERBALLY RESPONSIVE. RESPONSIVE TO VERBAL AND TACTILE STIMULI. NO C/O PAIN OR DISCOMFORT AT THIS TIME. WILL CONTINUE TO MONITOR.
--- NOTE | 2018-04-06 13:04 | NUR ---
BRIDGETT RN NOTE PT TAKEN TO MRI ORDERED. CONSUMED 75% OF LUNCH PRIOR TO LEAVING.
[2018-04-06] MEDS: SOD FERRIC GLUC 125 MG in IV NS 0.9% 100 ML IV SCH (13:54)
--- NOTE | 2018-04-06 15:07 | NUR ---
BRIDGETT RN NOTES STROKE TEACHING DONE. PARTIAL UNDERSTANDING. WILL CONTINUE TO EDUCATE PATIENT.
--- NOTE | 2018-04-06 15:47 | NUR ---
BRIDGETT RN NOTES PT TRANSFERRED TO ROOM 109. 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
--- NOTE | 2018-04-06 18:27 | NUR ---
BRIDGETT RN NOTES PT ATE DINNER WITH ASSISTANCE. ALL NEEDS ATTENDED. CALL LIGHT WITHIN REACH. NO APPARENT DISTRESS NOTED. BED IN LOWEST POSITION AND LOCKED. PT CONTINUES TO BE ON O2 3LPM VIA NC ORDERED. NO SOB NOTED.
[2018-04-06] MEDS: CEFTRIAXONE 1 G in IV D5W 50 ML IV SCH (18:33)
[2018-04-06] MEDS: MUPIROCIN OINT 2% 22 GM TUBE TP SCH (18:34)
--- NOTE | 2018-04-06 20:00 | NUR ---
BRIDGETT RN NOTE PT IN BED ASLEEP, EASILY AROUSABLE. A/O X 2-3. ON O2 3L VIA N/C. NEURO ASSESSMENT DONE. BILATERAL UPPER EXT WITH EQUAL AND STRONG STRENGTH AND LOWER EXT WITH LITTLE WEEK STRENGTH. NO SOB, NO DISTRESS OR DISCOMFORT NOTED. DENIES PAIN. ON TELE MONITOR SR HR 72. LAC # 18 G SL INTACT AND PATENT. NOTED TROP LEVEL IS TRENDING DOWN. VSS. SIDE RAILS UP X 3 AND CALL LIGHT WITHIN REACH. VSS. REPOSITION HIM FOR COMFORT. CONTINUE TO MONITOR HIM.
[2018-04-06] MEDS: SIMVASTATIN 40 MG TABLET PO SCH (22:00)
[2018-04-06] MEDS: ENOXAPARIN SODIUM 40 MG/0.4 ML DISP.SYRIN SQ SCH (22:00)
[2018-04-06] MEDS: TAMSULOSIN 0.4 MG CAP.SR.24H PO SCH (22:00)
[2018-04-07] VITALS: BP 118/59
[2018-04-07] MEDS: BLOOD SUGAR DIAGNOSTIC 1 EACH STRIP IN SCH ×4 (00:58→17:13)
--- NOTE | 2018-04-07 03:02 | NUR ---
BRIDGETT RN NOTE PT IN BED ASLEEP, EASILY AROUSABLE. DENIES ANY DISCOMFORT. ALL NEEDS ATTENDED. CONTINUE TO MONITOR HIM.
[2018-04-07 04:00] VITALS: BP 132/52
[2018-04-07] MEDS: MUPIROCIN OINT 2% 22 GM TUBE TP SCH ×2 (05:52→17:05)
--- NOTE | 2018-04-07 06:16 | NUR ---
BRIDGETT RN NOTE PT IN BED ASLEEP, EASILY AROUSABLE. NO DISTRESS OR DISCOMFORT NOTED. DENIES PAIN. ON TELE MONITOR SR 68. SL LAC #18 G INTACT AND PATENT. NO CHANGE IN CONDITION DURING THE NIGHT. SIDE RAILS UP X 3 AND CALL LIGHT WITHIN REACH. WILL ENDORSE TO DAY SHIFT NURSE FOR CONTINUE TO CARE.
[2018-04-07 06:30] LABS: BASOPHILS % (AUTO) 0.1 % (0.0-2.0); HEMATOCRIT 33 % (39-51); HEMOGLOBIN 11.2 g/dL (13.5-17.5); LYMPHOCYTES # (AUTO) 1.3 /CMM (0.8-4.8); LYMPHOCYTES % (AUTO) 14.6 % (20.0-44.0); MEAN CORPUSCULAR HGB CONC 34 g/dl (31.0-36.0); MEAN CORPUSCULAR VOLUME 81 fL (80-96); MONOCYTES # (AUTO) 0.6 /CMM (0.1-1.30); MONOCYTES % (AUTO) 6.8 % (2.0-12.0); NEUTROPHILS # (AUTO) 6.8 /CMM (1.8-8.9); NEUTROPHILS % (AUTO) 77.5 % (43.0-81.0); PLATELET COUNT (AUTO) 177 /CMM (150-450); RDW COEFFICIENT OF VARIATION 14.8 (11.5-15.0); RED BLOOD CELL COUNT(AUTO) 4.09 MIL/uL (4.5-6.0); WHITE BLOOD COUNT (AUTO) 8.8 K/uL (4.3-11.0)
[2018-04-07 06:50] LABS: CALCIUM, SERUM 8.3 mg/dL (8.5-10.1); CARBON DIOXIDE 30 mmol/L (21-32); CHLORIDE 103 mmol/L (98-107); CREATININE 1.1 mg/dL (0.6-1.3); GLUCOSE 94 mg/dL (74-106); MAGNESIUM 1.7 mg/dL (1.8-2.4); POTASSIUM 3.3 mmol/L (3.5-5.1); SODIUM SERUM 141 mmol/L (136-145); UREA NITROGEN, BLOOD 16 mg/dL (7-18)
--- NOTE | 2018-04-07 07:00 | NUR ---
RN NOTE RECEIVED PT ON BED, A/Ox2-3, RESPIRATION EVEN AND UNLABORED, ON 3L O2 N/C ,RESPIRATION EVEN AND UNLABORED, ON SOB NOTED, ON TELE SR HR IN 70'S , LAC IV SITE G 18 SITE CDI, VSS STABLE , CALL LIGHT WITHIN EASY REACH . SIDE RAILS UP X 3 AND CALL LIGHT WITHIN REACH. BED LOCKED AND IN LOWEST POSITION , CONTINUE TO MONITOR PT CLOSELY
[2018-04-07 08:00] VITALS: BP 137/64
[2018-04-07] MEDS: ALBUTEROL FS 2.5 MG/0.5 ML VIAL.NEB NEB SCH (08:10)
[2018-04-07] MEDS: CLOPIDOGREL BISULFATE 75 MG TABLET PO SCH (08:21)
[2018-04-07] MEDS: ASPIRIN EC 325 MG TABLET.DR PO SCH (08:21)
[2018-04-07] MEDS: LISINOPRIL (10MG) 10 MG TABLET PO SCH (08:21)
[2018-04-07] MEDS: PANTOPRAZOLE 40 MG TABLET.DR PO SCH (08:21)
[2018-04-07] MEDS: DOCUSATE SODIUM 100 MG CAPSULE PO SCH (08:21)
[2018-04-07] MEDS: FLUTICASONE/VILANTEROL 1 EACH BLST.W.DEV IH SCH (08:51)
[2018-04-07] MEDS: Magnesium 1GM/D5W 100ML PREMIX 100 ML IV SCH ×2 (09:59→11:40)
[2018-04-07] MEDS ORDERED: POTASSIUM CHLORIDE 20 MEQ TAB.PRT.SR PO SCH (10:00)
[2018-04-07] MEDS: HYDROCODONE/APAP 5/325MG 1 EACH TABLET PO PRN ×2 (11:40→17:14)
[2018-04-07 12:00] VITALS: BP 139/62
--- NOTE | 2018-04-07 12:00 | NUR ---
RN NOTES PT STABLE , ON 3L O2 N/C , NO SOB NOTED, CONTINUE TO MONITOR .
[2018-04-07] MEDS: IPRATROPIUM NEB FS 0.5 MG/2.5 ML AMPUL.NEB NEB SCH ×3 (13:30→19:57)
[2018-04-07] MEDS: ALBUTEROL FS 2.5 MG/3 ML VIAL.NEB NEB SCH ×3 (13:30→19:58)
[2018-04-07] MEDS: SOD FERRIC GLUC 125 MG in IV NS 0.9% 100 ML IV SCH (14:03)
[2018-04-07 16:00] VITALS: BP 143/72
[2018-04-07] MEDS: CEFTRIAXONE 1 G in IV D5W 50 ML IV SCH (17:05)
--- NOTE | 2018-04-07 18:20 | NUR ---
RN NOTES VSS STABLE , NO NEUROLOGICAL CHANGES NOTED ON THIS SHIFT , R HAND IV SITE CDI, SR UPx3, CALL LIGHT WITHIN EASY REACH, WILL ENDOSE TO [facility] SHIFT NURSE FOR ROBINSON.
--- NOTE | 2018-04-07 19:10 | NUR ---
RN INITIAL NOTES RECEIVED PATIENT IN BED, LETHARGIC, BUT OBSERVED TO BE AROUSABLE WITH VERBAL AND TACTILE STIMULI. PATIENT IS OBSERVED TO BE ALERT AND ORIENTED X3. DENIES ANY DISCOMFORT AND PAIN. ABLE TO MAKE NEEDS KNOWN. NIHSS DONE, UNREMARKABLE, NO DEFICITS NOTED. ON 3LPM OF O2 VIA NC, RESPIRATION IS EVEN AND UNLABORED WITH NO DISTRESS. SR ON TELE WITH HR AT 70s. L HAND G22, INTACT AND PATENT, NO SIGNS OF INFILTRATION. NEEDS ANTICIPATED AND MET. SAFETY AND COMFORT ENSURED. BED IN LOW AND LOCKED POSITION. BED ALARM IN PLACE. CALL LIGHT IN REACH. WILL CONTINUE TO MONITOR.
[2018-04-07 20:00] VITALS: BP 170/70
[2018-04-07] MEDS: SIMVASTATIN 40 MG TABLET PO SCH (21:19)
[2018-04-07] MEDS: TAMSULOSIN 0.4 MG CAP.SR.24H PO SCH (21:19)
[2018-04-07] MEDS: ENOXAPARIN SODIUM 40 MG/0.4 ML DISP.SYRIN SQ SCH (21:25)
[2018-04-08] VITALS: BP 134/57
[2018-04-08] MEDS: ALBUTEROL FS 2.5 MG/3 ML VIAL.NEB NEB SCH ×7 (00:04→23:39)
[2018-04-08] MEDS: BLOOD SUGAR DIAGNOSTIC 1 EACH STRIP IN SCH ×5 (00:08→23:54)
[2018-04-08 04:00] VITALS: BP 159/67
[2018-04-08] MEDS: MUPIROCIN OINT 2% 22 GM TUBE TP SCH ×2 (05:11→17:03)
[2018-04-08] MEDS: INSULIN REGULAR, HUMAN 100 UNIT/ML 3 ML VIAL SQ PRN ×2 (05:13→12:40)
--- NOTE | 2018-04-08 06:33 | NUR ---
RN CLOSING NOTES PATIENT WITH NO ACUTE CHANGE IN CONDITION OBSERVED OVERNIGHT. SR 70s. ON 3LPM OF O2 VIA NC. PATIENT STARTED TO COMPLAIN OF DIARRHEA, PATIENT'S STOOL NOTED TO BE SOFT, MUCOID YELLOW STOOL. WILL ENDORSE ACCORDINGLY FOR CLOSE MONITORING. ALL DUE MEDS GIVEN ORDERED. AM LABS DRAWN. KEPT CLEAN AND DRY. SAFETY AND COMFORT ENSURED. BED IN LOW AND LOCKED POSITION. CALL LIGHT IN REACH. WILL ENDORSE ACCORDINGLY.
[2018-04-08 06:38] LABS: CALCIUM, SERUM 8.3 mg/dL (8.5-10.1); CARBON DIOXIDE 26 mmol/L (21-32); CHLORIDE 104 mmol/L (98-107); GLUCOSE 131 mg/dL (74-106); MAGNESIUM 1.8 mg/dL (1.8-2.4); PHOSPHORUS 2.9 mg/dL (2.5-4.9); POTASSIUM 2.9 mmol/L (3.5-5.1); SODIUM SERUM 141 mmol/L (136-145); UREA NITROGEN, BLOOD 13 mg/dL (7-18)
[2018-04-08 06:41] LABS: BASOPHILS % (AUTO) 0.3 % (0.0-2.0); EOSINOPHILS % (AUTO) 0.6 % (0.0-6.0); HEMATOCRIT 35 % (39-51); HEMOGLOBIN 11.9 g/dL (13.5-17.5); LYMPHOCYTES # (AUTO) 1.2 /CMM (0.8-4.8); LYMPHOCYTES % (AUTO) 17.5 % (20.0-44.0); MEAN CORPUSCULAR HGB CONC 34 g/dl (31.0-36.0); MEAN CORPUSCULAR VOLUME 80 fL (80-96); MONOCYTES # (AUTO) 0.4 /CMM (0.1-1.30); NEUTROPHILS # (AUTO) 5.2 /CMM (1.8-8.9); NEUTROPHILS % (AUTO) 75.6 % (43.0-81.0); PLATELET COUNT (AUTO) 180 /CMM (150-450); RDW COEFFICIENT OF VARIATION 14.9 (11.5-15.0); RED BLOOD CELL COUNT(AUTO) 4.34 MIL/uL (4.5-6.0); WHITE BLOOD COUNT (AUTO) 6.9 K/uL (4.3-11.0)
--- NOTE | 2018-04-08 07:00 | NUR ---
RN NOTES RECEIVED PATIENT ON BED, A/Ox3, ON 3L O2 N/C, RESPIRATION EVEN AND UNLABORED, ON TELE HR IN 70'S, SR , L HAND IV SITE G22, INTACT AND PATENT, NO SIGNS OF INFILTRATION. C/O GENERALIZED PAIN , PT WANTS TYLENOL, WILL MEDICATED PER MD ORDER, NEEDS ANTICIPATED AND MET. SAFETY AND COMFORT ENSURED. BED LOCKED AND IN LOWEST POSITION , BED ALARM ON , CALL LIGHT WITHIN EASY REACH. WILL CONTINUE TO MONITOR [place]
[2018-04-08] MEDS: IPRATROPIUM NEB FS 0.5 MG/2.5 ML AMPUL.NEB NEB SCH ×4 (07:45→19:33)
[2018-04-08 08:00] VITALS: BP 160/63
[2018-04-08] MEDS: CLOPIDOGREL BISULFATE 75 MG TABLET PO SCH (08:21)
[2018-04-08] MEDS: PANTOPRAZOLE 40 MG TABLET.DR PO SCH (08:21)
[2018-04-08] MEDS: LISINOPRIL (10MG) 10 MG TABLET PO SCH (08:24)
[2018-04-08] MEDS: ASPIRIN EC 325 MG TABLET.DR PO SCH (08:33)
[2018-04-08] MEDS: FLUTICASONE/VILANTEROL 1 EACH BLST.W.DEV IH SCH (08:33)
[2018-04-08] MEDS: DOCUSATE SODIUM 100 MG CAPSULE PO SCH (08:34)
[2018-04-08] MEDS: ONDANSETRON HCL/PF 4 MG/2 ML VIAL IVP PRN ×2 (09:45→16:38)
[2018-04-08] MEDS: HYDROCODONE/APAP 5/325MG 1 EACH TABLET PO PRN ×2 (10:31→21:07)
[2018-04-08] MEDS: POTASSIUM CHLORIDE 20 MEQ TAB.PRT.SR PO SCH ×3 (11:27→13:25)
[2018-04-08] MEDS: SOD FERRIC GLUC 125 MG in IV NS 0.9% 100 ML IV SCH (13:25)
[2018-04-08 16:00] VITALS: BP 162/67
--- NOTE | 2018-04-08 16:38 | NUR ---
RN NOTES PT VOMITTED SMALL AMOUNT OF YELLOWISH STOMACH CONTENT , TRANG ALEXANDER FIRMWARE SOFTWARE VERIFICATION ENGINEER NOTIFED , ZOFRAN IV GIVEN PER ORDER . CONTINUE TO MONITOR .
[2018-04-08] MEDS: CEFTRIAXONE 1 G in IV D5W 50 ML IV SCH (17:02)
--- NOTE | 2018-04-08 18:14 | NUR ---
RN NOTES NO NEUROLOGICAL CHANGES NOTED ON THIS SHIFT , PT STABLE AT THIS TIME, SR UPx3, CALL LIGHT WITHIN EASY REACH, BED LOCKED AND IN LOWEST POSITION , WILL ENDORSE TO EDITOR PUBLICATIONS NURSE FOR ROBINSON.
--- NOTE | 2018-04-08 19:30 | NUR ---
MS RN INITIAL NOTE PT RECEIVED AWAKE IN BED. A/O X 2 AND ABLE TO VERBALIZE NEEDS. ON 3L OF O2 AND SATURATING WELL. BREATHING REGULAR AND UNLABORED. IV L HAND #22 CLEAN, DRY AND FLUSHING WELL. BED ALARM ENABLED AND CALL LIGHT WITHIN REACH. ISOLATION PRECAUTIONS OBSERVED. WILL CONTINUE TO MONITOR.
[2018-04-08 20:00] VITALS: BP 170/72
[2018-04-08] MEDS: ENOXAPARIN SODIUM 40 MG/0.4 ML DISP.SYRIN SQ SCH (21:07)
[2018-04-08] MEDS: SIMVASTATIN 40 MG TABLET PO SCH (21:07)
[2018-04-08] MEDS: TAMSULOSIN 0.4 MG CAP.SR.24H PO SCH (21:07)
--- NOTE | 2018-04-09 01:24 | NUR ---
MS RN NOTE GAVE REPORT TO SHON GARCIA FOR CONTINUITY OF CARE
[2018-04-09] MEDS: ALBUTEROL FS 2.5 MG/3 ML VIAL.NEB NEB SCH ×6 (03:17→23:17)
[2018-04-09 04:00] VITALS: BP 171/93
[2018-04-09] MEDS: BLOOD SUGAR DIAGNOSTIC 1 EACH STRIP IN SCH ×4 (05:40→23:38)
[2018-04-09] MEDS: MUPIROCIN OINT 2% 22 GM TUBE TP SCH ×2 (05:40→17:47)
[2018-04-09 06:47] LABS: BASOPHILS % (AUTO) 0.5 % (0.0-2.0); EOSINOPHILS % (AUTO) 0.2 % (0.0-6.0); HEMATOCRIT 40 % (39-51); HEMOGLOBIN 13.3 g/dL (13.5-17.5); LYMPHOCYTES # (AUTO) 1.1 /CMM (0.8-4.8); LYMPHOCYTES % (AUTO) 14.5 % (20.0-44.0); MEAN CORPUSCULAR HGB CONC 33 g/dl (31.0-36.0); MEAN CORPUSCULAR VOLUME 81 fL (80-96); MONOCYTES # (AUTO) 0.4 /CMM (0.1-1.30); MONOCYTES % (AUTO) 4.7 % (2.0-12.0); NEUTROPHILS # (AUTO) 6.3 /CMM (1.8-8.9); NEUTROPHILS % (AUTO) 80.1 % (43.0-81.0); PLATELET COUNT (AUTO) 198 /CMM (150-450); RDW COEFFICIENT OF VARIATION 14.4 (11.5-15.0); RED BLOOD CELL COUNT(AUTO) 4.95 MIL/uL (4.5-6.0); WHITE BLOOD COUNT (AUTO) 7.8 K/uL (4.3-11.0)
[2018-04-09 06:52] LABS: CARBON DIOXIDE 26 mmol/L (21-32); CHLORIDE 104 mmol/L (98-107); CREATININE 1.1 mg/dL (0.6-1.3); GLUCOSE 116 mg/dL (74-106); POTASSIUM 3.7 mmol/L (3.5-5.1); SODIUM SERUM 143 mmol/L (136-145); UREA NITROGEN, BLOOD 9 mg/dL (7-18)
--- NOTE | 2018-04-09 07:30 | NUR ---
MS RN OPENING NOTE PT RECEIVED IN BED.AWAKE. A/O X 2 AND ABLE TO VERBALIZE NEEDS. ON 3L OF O2 . BREATHING REGULAR AND UNLABORED. IV L HAND #22 .BED IS LOCKED AND LOW POSITION.BED ALARM ENABLED AND CALL LIGHT WITHIN REACH. ISOLATION PRECAUTIONS OBSERVED. WILL CONTINUE TO MONITOR.
[2018-04-09] MEDS: IPRATROPIUM NEB FS 0.5 MG/2.5 ML AMPUL.NEB NEB SCH ×4 (07:35→19:37)
[2018-04-09] MEDS: PANTOPRAZOLE 40 MG TABLET.DR PO SCH (07:44)
[2018-04-09 08:00] VITALS: BP 169/74
[2018-04-09] MEDS: CLOPIDOGREL BISULFATE 75 MG TABLET PO SCH (08:55)
[2018-04-09] MEDS: DOCUSATE SODIUM 100 MG CAPSULE PO SCH (08:55)
[2018-04-09] MEDS: LISINOPRIL (10MG) 10 MG TABLET PO SCH (08:55)
[2018-04-09] MEDS: FLUTICASONE/VILANTEROL 1 EACH BLST.W.DEV IH SCH (08:56)
[2018-04-09] MEDS: ASPIRIN EC 325 MG TABLET.DR PO SCH (09:00)
[2018-04-09] MEDS: ONDANSETRON HCL/PF 4 MG/2 ML VIAL IVP PRN (09:11)
[2018-04-09] MEDS: HYDROCODONE/APAP 5/325MG 1 EACH TABLET PO PRN ×2 (09:11→21:32)
--- NOTE | 2018-04-09 10:00 | NUR ---
MS RN NOTE NOTED WITH 1 EPISODE OF VOMITING.ZOFRAN IV GIVEN
--- NOTE | 2018-04-09 13:00 | NUR ---
MS RN NOTE SATURATOR OPERATOR HONEYCUTT MADE AWARE ABOUT THE VOMITINGX1
[2018-04-09] MEDS: METOCLOPRAMIDE HCL 10 MG/2 ML VIAL IV SCH ×3 (13:30→23:38)
--- NOTE | 2018-04-09 13:45 | NUR ---
WOUND CARE CONSULT: PT PRESENTS WITH INCONTINENCE AND SOME SCARRING WITH DRY SKIN TO LOWER EXTREMITIES. NO RASH NOTED. RECOMMENDATIONS MADE FOR SKIN PROTECTION. DISCUSSED WITH NURSING STAFF. CURRENT RENEE SCORE IS 15. WILL SEE PRN. AQUINO IN AGREEMENT WITH PLAN OF CARE. Addendum: 04/09/18 at 1347 by ANETTE LIM WNDNU Amended: Links added.
--- NOTE | 2018-04-09 14:00 | NUR ---
MS RN NOTE SEEN BY RASHAAD HONEYCUTT MADE AWARE ABOUT PATIENT UNABLE TO HOLD R LEG UP FOR 10SEC.DROPPING AFTER 5 SEC.CONTINUE TO MONITOR. WOUND CARE CONSULT DONE.NNO.
[2018-04-09 16:00] VITALS: BP 167/73
[2018-04-09] MEDS: SOD FERRIC GLUC 125 MG in IV NS 0.9% 100 ML IV SCH (16:04)
[2018-04-09] MEDS: CEFTRIAXONE 1 G in IV D5W 50 ML IV SCH (17:46)
--- NOTE | 2018-04-09 18:00 | NUR ---
MS RN NOTE SEEN BY RASHAAD CARRILLO MADE AWARE ABOUT THE VOMITINGX1
--- NOTE | 2018-04-09 19:10 | NUR ---
MS RN SHIFT END NOTE PT IN BED.AWAKE. A/O X 2 AND ABLE TO VERBALIZE NEEDS. ON 3L OF O2 . BREATHING REGULAR AND UNLABORED. IV L HAND #22 .BED IS LOCKED AND LOW POSITION.BED ALARM ENABLED AND CALL LIGHT WITHIN REACH. ISOLATION PRECAUTIONS OBSERVED. WILL ENDORSE TO PM NURSE FOR ROBINSON.
[2018-04-09] MEDS: SIMVASTATIN 40 MG TABLET PO SCH (21:24)
[2018-04-09] MEDS: TAMSULOSIN 0.4 MG CAP.SR.24H PO SCH (21:24)
[2018-04-09] MEDS: ENOXAPARIN SODIUM 40 MG/0.4 ML DISP.SYRIN SQ SCH (21:26)
[2018-04-10] MEDS: ALBUTEROL FS 2.5 MG/3 ML VIAL.NEB NEB SCH ×4 (03:22→15:42)
[2018-04-10 04:00] VITALS: BP 174/88
[2018-04-10] MEDS: METOCLOPRAMIDE HCL 10 MG/2 ML VIAL IV SCH ×3 (05:13→17:43)
[2018-04-10] MEDS: BLOOD SUGAR DIAGNOSTIC 1 EACH STRIP IN SCH ×3 (05:13→17:43)
[2018-04-10] MEDS: MUPIROCIN OINT 2% 22 GM TUBE TP SCH ×2 (05:21→17:44)
--- NOTE | 2018-04-10 07:30 | NUR ---
MS RN AM NOTES PT RECEIVED IN BED.AWAKE. A/O X 2, ON 4L O2 NC, NO SOB, NAD, RESPIRATION UNLABORED. 3L OF O2 . DENIES PAIN, IV L HAND #22, LUSHES WELL, SITE CLEAR. NO SKIN ISSUES, CARDIAC DIET. BED IS LOCKED AND LOW POSITION.BED ALARM ENABLED AND CALL LIGHT WITHIN REACH. ISOLATION PRECAUTIONS OBSERVED. WILL CONTINUE TO MONITOR.
[2018-04-10] MEDS: PANTOPRAZOLE 40 MG TABLET.DR PO SCH (07:50)
[2018-04-10 08:00] VITALS: BP 150/72
[2018-04-10] MEDS: IPRATROPIUM NEB FS 0.5 MG/2.5 ML AMPUL.NEB NEB SCH ×3 (08:08→15:42)
--- NOTE | 2018-04-10 09:30 | NUR ---
MS RN NOTES DUE MEDS GIVEN
[2018-04-10] MEDS: DOCUSATE SODIUM 100 MG CAPSULE PO SCH (09:55)
[2018-04-10] MEDS: FLUTICASONE/VILANTEROL 1 EACH BLST.W.DEV IH SCH (09:55)
[2018-04-10] MEDS: CLOPIDOGREL BISULFATE 75 MG TABLET PO SCH (09:56)
[2018-04-10] MEDS: ASPIRIN EC 325 MG TABLET.DR PO SCH (09:56)
[2018-04-10] MEDS: LISINOPRIL (10MG) 10 MG TABLET PO SCH (09:56)
[2018-04-10] MEDS ORDERED: LISI10TA59 PO (11:18)
[2018-04-10] MEDS ORDERED: SIMV40TA5 PO (11:18)
[2018-04-10] MEDS ORDERED: METO-295 PO (11:18)
[2018-04-10] MEDS ORDERED: ASPI-1169 PO (11:18)
[2018-04-10] MEDS ORDERED: CLOP75TA15 PO (11:18)
[2018-04-10] MEDS ORDERED: TAMS-12 PO (11:18)
[2018-04-10] MEDS ORDERED: PANT40TA2 PO (11:18)
[2018-04-10] MEDS ORDERED: DOCU-141 PO (11:18)
--- NOTE | 2018-04-10 12:05 | NUR ---
MS RN NOTES ACCUCHECK. BS 130 MG/DL. NO INSULIN COVERAGE GIVEN
[2018-04-10 16:00] VITALS: BP 164/89
[2018-04-10] MEDS: SOD FERRIC GLUC 125 MG in IV NS 0.9% 100 ML IV SCH (16:01)
--- NOTE | 2018-04-10 16:01 | NUR ---
MS RN NOTES STARTED FERRLECIT IV. NOT GIVEN ON TIME. MEDICATION JUST DELIVERED
[2018-04-10] MEDS: CEFTRIAXONE 1 G in IV D5W 50 ML IV SCH (17:43)
--- NOTE | 2018-04-10 17:44 | NUR ---
MS RN NOTES REPORT GIVEN TO CRISTIANO GARCIA.
--- NOTE | 2018-04-10 18:23 | NUR ---
MS TRAFFIC ANALYSIS TECHNICIAN NOTES PATIENT DISCHARGED TO [facility] PER MD IN STABLE CONDITION. PROVIDED DC INSTRUCTIONS, HEALTH TEACHINGS AND MED RECON LIST. TO FOLLOW UP WITH PCP IN 1-2 WEEKS OR PER FACILITY PROTOCOL. LEFT HAND IV ACCESS REMOVED, PRESSURE AND DRESSING APPLIED NO BLEEDING. ALL BELONGINGS CHECKED AND RETURNED. ALL PAPERWORKS SIGNED. REFUSED TO HAVE PHOTOS OF SKIN ISSUES TAKEN. REPORT GIVEN TO CRISTIANO AT FACILITY EARLIER. PICKED UP BY [facility] AND WILL TRANSPORT PATIENT TO FACILITY.
== END 2018-04-10 18:24 | DRG 69 ==
LOC: ER 12:29 → TELE-TD 14:48 → MEDSG1 04-08 10:34
PROVIDERS: ADMIT Internal Medicine; ATTEND Internal Medicine
DX: G45.9 Transient cerebral ischemic attack, unspecified (principal); J96.01 Acute respiratory failure with hypoxia; G93.41 Metabolic encephalopathy; I50.32 Chronic diastolic (congestive) heart failure; K56.7 Ileus, unspecified; I11.0 Hypertensive heart disease with heart failure; E87.1 Hypo-osmolality and hyponatremia; J98.11 Atelectasis; D72.829 Elevated white blood cell count, unspecified; D63.8 Anemia in other chronic diseases classified elsewhere; E86.1 Hypovolemia; E87.6 Hypokalemia; E78.5 Hyperlipidemia, unspecified; J44.9 Chronic obstructive pulmonary disease, unspecified; Z86.718 Personal history of other venous thrombosis and embolism; Z86.711 Personal history of pulmonary embolism; I70.90 Unspecified atherosclerosis; R29.810 Facial weakness; Z86.73 Personal history of transient ischemic attack (TIA), and cerebral infarction without residual deficits; K21.9 Gastro-esophageal reflux disease without esophagitis; N40.0 Benign prostatic hyperplasia without lower urinary tract symptoms; Z87.891 Personal history of nicotine dependence; F03.90 Unspecified dementia, unspecified severity, without behavioral disturbance, psychotic disturbance, mood disturbance, and anxiety; Z22.322 Carrier or suspected carrier of Methicillin resistant Staphylococcus aureus
CPT/HCPCS: 36415; 70450-TC; 70496-TC; 70498-TC; 70551-TC; 71045-TC; 74018; 76856-TC; 80048-TC; 80061-TC; 80076-TC; 80305; 81000-TC; 82746; 82962-TC; 83540-TC; 83605-TC; 83735-TC; 83880; 84100-TC; 84443-TC; 84484-TC; 85025-TC; 85652-TC; 85730-TC; 87040-TC; 87081-TC; 87086-TC; 92611-TC; 93307-TC; 93880-TC; 94799-TC; 97110-TC; 97116-TC; 97530-TC; 97535-TC; A4606; J0696; J1650; J1815; J2405; J2765; J2916; J3475; J7030; J7040; J7060; Q9967; Z7610

== ENCOUNTER 2018-04-13 18:26 | Emergency (ER) | payer MEDICARE, OTHER ==
[~2018-04-13] VITALS: Ht 167.6 cm; Wt 65.8 kg
[2018-04-13 18:26] VITALS: BP 20/114
[~2018-04-13 18:26] MED LIST changes: -ALPR1TAB2 PO; -ATOR40TA PO; +CLOP75TA15 PO; +DOCU-141 PO; -DONE5TAB34 PO; -ESCI10TA PO; -ESOM40CA PO; -HYDR-3974 PO; -HYDR-4076 PO; -Ipratropium Bromide NEB; -LACT1CAP72 PO; -LEVO500T2 PO; +LISI10TA59 PO; -LISI5TAB45 PO; +METO-295 PO; +PANT40TA2 PO; -PRED10TA PO; -PRED20TA PO; -Rivaroxaban PO; +SIMV40TA5 PO; +TAMS-12 PO; -TAMS0.4C34 PO
== END 2018-04-13 18:51 | disposition home or self-care (01) ==
LOC: ER 18:28
DX: Z13.89 Encounter for screening for other disorder (principal); I10 Essential (primary) hypertension; J44.9 Chronic obstructive pulmonary disease, unspecified; F17.200 Nicotine dependence, unspecified, uncomplicated; Z79.82 Long term (current) use of aspirin; Z86.711 Personal history of pulmonary embolism; Z86.73 Personal history of transient ischemic attack (TIA), and cerebral infarction without residual deficits; Z60.2 Problems related to living alone
CPT/HCPCS: A4606; Z7610

== ENCOUNTER 2019-01-07 11:03 | Inpatient (IN) | payer MEDICARE, OTHER ==
[2019-01-07] VITALS: BP 105/52
[~2019-01-07] VITALS: Ht 177.8 cm; Wt 62.1 kg
--- NOTE | 2019-01-07 11:10 | NUR ---
PT ALEXX FROM HOME FOR AMS; PT AAOX1-2, PT ON MONITOR, VSS, NAD NOTED, PENDING MD CARMICHAEL
[2019-01-07 12:13] LABS: BASOPHILS % (AUTO) 0.2 % (0.0-2.0); EOSINOPHILS % (AUTO) 0.2 % (0.0-6.0); HEMATOCRIT 45 % (39-51); LYMPHOCYTES # (AUTO) 0.8 /CMM (0.8-4.8); MEAN CORPUSCULAR HGB CONC 33 g/dl (31.0-36.0); MEAN CORPUSCULAR VOLUME 82 fL (80-96); MONOCYTES # (AUTO) 0.7 /CMM (0.1-1.30); MONOCYTES % (AUTO) 4.2 % (2.0-12.0); NEUTROPHILS # (AUTO) 14.7 /CMM (1.8-8.9); NEUTROPHILS % (AUTO) 90.4 % (43.0-81.0); PLATELET COUNT (AUTO) 155 /CMM (150-450); WHITE BLOOD COUNT (AUTO) 16.2 K/uL (4.3-11.0)
[2019-01-07 12:26] LABS: APPEARANCE,URINE Clear (CLEAR); BILIRUBIN,URINE Negative (NEGATIVE); BLOOD, URINE Moderate Ery/uL (NEGATIVE); COLOR,URINE Yellow (YELLOW); KETONES,URINE Negative (NEGATIVE); LEUKOCYTE ESTERASE ,URINE Negative (NEGATIVE); NITRITE, URINE Negative (NEGATIVE); PROTEIN,URINE >=300 mg/dl (NEGATIVE); UGLUCOSE Negative (NEGATIVE); UROBILINOGEN,URINE 0.2 EU/dL (0.2)
[2019-01-07 12:29] LABS: ALCOHOL, BLOOD < 3 mg/dL (0-0); B-TYPE NATRIURETIC PEPTIDE 1380 PG/ML (0-125); CALCIUM, SERUM 9.3 mg/dL (8.5-10.1); CARBON DIOXIDE 29 mmol/L (21-32); CREATININE 1.4 mg/dL (0.6-1.3); GLUCOSE 133 mg/dL (74-106); UREA NITROGEN, BLOOD 26 mg/dL (7-18)
[2019-01-07 12:32] LABS: CHLORIDE 100 mmol/L (98-107); POTASSIUM 3.7 mmol/L (3.5-5.1); SODIUM SERUM 137 mmol/L (136-145)
[2019-01-07 12:37] LABS: BACTERIA,URINE None seen /HPF (None Seen); RBC,URINE 20-50 /HPF (0-2); SQUAMOUS EPITHELIAL CELL,UR Few /HPF (None Seen); WBC,URINE 0-3 /HPF (0-3)
--- NOTE | 2019-01-07 13:27 | NUR ---
CALLED [facility] FOR READ ON CT AND XRAY; SPOKE TO ANETTE
--- NOTE | 2019-01-07 13:57 | NUR ---
PANEL ON-CALL PAGED
[2019-01-07] MEDS ORDERED: ASPIRIN EC 81 MG TABLET.DR PO ONE (14:30)
[2019-01-07] MEDS ORDERED: PIPERACILLIN /TAZOBACTAM 3.375 G in IV D5W 50 ML IV ONE (14:30)
--- NOTE | 2019-01-07 14:42 | NUR ---
ROOM 326-1 TELE
--- NOTE | 2019-01-07 14:50 | NUR ---
REPORT GIVEN TO RADHA BURTON FOR ROBINSON
[2019-01-07] MEDS ORDERED: CLOP75TA15 PO (14:53)
[2019-01-07] MEDS ORDERED: LISI10TA5 PO (14:53)
[2019-01-07] MEDS ORDERED: SIMV40TA5 PO (14:53)
[2019-01-07] MEDS ORDERED: TAMS0.4C34 PO (14:53)
[2019-01-07] MEDS ORDERED: DONE10TA44 PO (14:53)
--- NOTE | 2019-01-07 14:57 | NUR ---
CONTACT NUMBER FOR FRIEND (LYNETTE REDDYVAZO) [phone].
--- NOTE | 2019-01-07 15:25 | NUR ---
PT TRANSFERRED TO MS3/TELE VIA ACLS PROTOCOL
[2019-01-07] MEDS: IV NS 0.9% 1,000 ML IV PRN (15:55)
[2019-01-07 16:00] VITALS: BP 145/69
[2019-01-07] MEDS ORDERED: ONDANSETRON HCL/PF 4 MG/2 ML VIAL IVP PRN (16:00)
[2019-01-07] MEDS ORDERED: ENOXAPARIN SODIUM 40 MG/0.4 ML DISP.SYRIN SQ SCH (16:00)
[2019-01-07] MEDS ORDERED: MAG HYDROX/AL HYDROX/SIMETH 30 ML UDC PO PRN (16:00)
[2019-01-07] MEDS ORDERED: MAGNESIUM HYDROXIDE 30 ML UDC PO PRN (16:00)
[2019-01-07] MEDS ORDERED: Z GUARD REMEDY 2 OZ OINT TP PRN (16:00)
[2019-01-07] MEDS ORDERED: ZOLPIDEM TARTRATE 5 MG TABLET PO PRN (16:00)
--- NOTE | 2019-01-07 16:00 | NUR ---
ADMISSION NOTES RECEIVED PATIENT FROM ER ON TELE DX OF PNEUMONIA WITH ENCEPHALOPATHY. PATIENT A/O X3 WITH CONFUSION. PATIENT HAS NO ACUTE RESPIRATORY DISTRESS, SR-86, PATIENT WAS COMPLAINING OF GENERALIZED PAIN 5/10 AT THIS TIME, ADMINISTERED TYLENOL 650 MG PO PRN, V/S TAKEN BP- 145/69, P-60, R-19, O2-92 ROOM AIR, T-97.8. SKIN ASSESSMENT DONE SKIN INTACT. PATIENT HAD F/C DRAINING YELLOW OUTPUT FREELY. IV ACCESS ON LEFT FA INTACT. CALL LIGHT WITHIN TO REACH. Dr HEALY AWARE OF NEW PATIENT NAD MEDICATION. CONTINUED MONITORING.
[2019-01-07] MEDS: ACETAMINOPHEN 325 MG TABLET PO PRN (16:01)
[2019-01-07 16:33] VITALS: BP 114/69
[2019-01-07] MEDS: AZITHROMYCIN 500 MG in IV D5W 250 ML IV SCH (16:57)
--- NOTE | 2019-01-07 17:40 | NUR ---
RN NOTES GET CALL FROM LAB FOR CRITICAL TROPONIN [phone], CALLED AND LEFT MASSAGE Dr. HEALY WAITING FOR RESPOND.
--- NOTE | 2019-01-07 17:49 | NUR ---
RN NOTES PATIENT STABLE EATING WITH ASSIST OF ALEXEY MARR, MEDICATION WERE ADMINISTERED FOR PAIN EFFECTIVE, ECHO DONE AT THIS TIME, V/S STABLE, INFUSING ANTIBIOTIC AT THIS TIME 250 ML/HE INTACT ON LEFT FA , CALL LIGHT WITHIN TO REACH, SAFETY PRECAUTION MAINTAINED ALL THE TIME. 1:1 SITTER NEXT TO THE BED FO5R SAFETY.
--- NOTE | 2019-01-07 18:00 | NUR ---
RN NOTES GET CALL BACK FROM MD NOTIFIED ELEVATED TROPONIN LEVEL, PER Dr. HEALY WILL CHANGE LEVAQUIN LEVEL. CONTINUED MONITORING.
[2019-01-07] MEDS: CEFTRIAXONE 1 G in IV D5W 50 ML IV SCH (18:22)
--- NOTE | 2019-01-07 18:30 | NUR ---
RN NOTES PATIENT STABLE, SLEEPING, NO ACUTE RESPIRATORY DISTRESS, SR-70, INFUSING NS AT 75ML/HR INTACT ON LEFT ARM, F/C DRAIN WELL, CALL LIGHT WITHIN TO REACH. 1:1 SITTER NEXT TO THE BED FOR SAFETY. ENDORSED ONCOMING NURSE FOR PLAN OF CARE.
[2019-01-07 20:00] VITALS: BP 92/48
--- NOTE | 2019-01-07 20:27 | NUR ---
LEHR OPERATOR INITIAL NOTES Patient in bed, awake, appears calm. Stable oxygen saturation on RA, denies pain. Sinus Rhythm on the tele monitor. Maintained safety, sitter at the bedside. Will cont to monitor.
[2019-01-08] VITALS: BP 105/52
[2019-01-08 04:00] VITALS: BP 104/60
[2019-01-08] MEDS: IV NS 0.9% 1,000 ML IV PRN (06:26)
--- NOTE | 2019-01-08 06:27 | NUR ---
SALES ACCOUNT MANAGER CLOSING NOTES No acute events overnight, on supplemental oxygen at 2L NC. Sinus rhythm on the tele monitor. IVF infusing, maintained at 75ml/hr. Urinary ribera cath intact, bag off the floor. Slept well. Planned PT eval today. No cough, denies pain. Respiratory culture with G/S was ordered, sputum induce to be collected per RT, none at this time. Sitter at the bedside. Will endorse to oncoming RN.
[2019-01-08 06:35] LABS: BASOPHILS % (AUTO) 0.3 % (0.0-2.0); EOSINOPHILS % (AUTO) 0.1 % (0.0-6.0); HEMATOCRIT 39 % (39-51); HEMOGLOBIN 13.4 g/dL (13.5-17.5); LYMPHOCYTES % (AUTO) 14.3 % (20.0-44.0); MEAN CORPUSCULAR HGB CONC 34 g/dl (31.0-36.0); MEAN CORPUSCULAR VOLUME 80 fL (80-96); MONOCYTES # (AUTO) 0.7 /CMM (0.1-1.30); MONOCYTES % (AUTO) 5.3 % (2.0-12.0); NEUTROPHILS # (AUTO) 11.1 /CMM (1.8-8.9); PLATELET COUNT (AUTO) 144 /CMM (150-450); RED BLOOD CELL COUNT(AUTO) 4.91 MIL/uL (4.5-6.0); WHITE BLOOD COUNT (AUTO) 13.9 K/uL (4.3-11.0)
[2019-01-08 06:56] LABS: ALANINE AMINOTRANSFERASE 14 U/L (12-78); ALBUMIN 3.1 g/dL (3.4-5.0); ALKALINE PHOSPHATASE 68 U/L (46-116); ASPARTATE AMINOTRANSFERASE 58 U/L (15-37); BILIRUBIN,TOTAL 0.9 mg/dL (0.2-1.0); CALCIUM, SERUM 8.6 mg/dL (8.5-10.1); CARBON DIOXIDE 25 mmol/L (21-32); CHLORIDE 104 mmol/L (98-107); CREATININE 1.2 mg/dL (0.6-1.3); GLUCOSE 94 mg/dL (74-106); MAGNESIUM 1.9 mg/dL (1.8-2.4); PHOSPHORUS 2.9 mg/dL (2.5-4.9); POTASSIUM 3.5 mmol/L (3.5-5.1); SODIUM SERUM 141 mmol/L (136-145); TOTAL PROTEIN, SERUM 7.1 g/dL (6.4-8.2); UREA NITROGEN, BLOOD 26 mg/dL (7-18)
[2019-01-08 07:03] LABS: CHOLESTEROL 148 mg/dL (<200); HDL CHOLESTEROL 48 mg/dL (40-60); LDL 90 mg/dL (0-99); TRIGLYCERIDES 75 mg/dL (30-150)
--- NOTE | 2019-01-08 07:15 | NUR ---
RN OPENING NOTES RECEIVED PATIENT AWAKE RESTING COMFORTABLY IN BED, ALERT ABLE TO MAKE NEEDS KNOWN, CONFUSED AT TIMES. RESPIRATIONS EVEN AND UNLABORED, PT DENIES ANY PAIN OR DISCOMFORT AT THIS TIME. IV ACCESS TO RFA 20G PATENT AND INTACT NO REDNESS OR INFILTRATION NOTED. BAPTISTE CATHETER PATENT AND INTACT, DRAINING YELLOW URINE WILL CONTINUE TO MONITOR. KEPT CLEAN DRY AND COMFORTABLE CALL LIGHT WITHIN EASY REACH WILL CONTINUE TO MONITOR
[2019-01-08] MEDS: CLOPIDOGREL BISULFATE 75 MG TABLET PO SCH (09:20)
[2019-01-08] MEDS: TAMSULOSIN 0.4 MG CAP.SR.24H PO SCH (09:20)
[2019-01-08] MEDS: LISINOPRIL (10MG) 10 MG TABLET PO SCH (09:20)
[2019-01-08] MEDS: ENOXAPARIN SODIUM 60 MG/0.6 ML DISP.SYRIN SQ SCH ×2 (09:33→21:08)
[2019-01-08] MEDS: ACETAMINOPHEN 325 MG TABLET PO PRN ×2 (12:56→22:55)
[2019-01-08] MEDS: ALBUTEROL FS 2.5 MG/3 ML VIAL.NEB NEB SCH ×2 (13:21→19:05)
--- NOTE | 2019-01-08 14:30 | NUR ---
RN NOTES ATTEMPTED TO COLLECT SPUTUM CULTURE UNSUCCESSFUL, WILL CONTINUE TO MONITOR AND WILL REATTEMPT
[2019-01-08] MEDS: LACTOBACILLUS RHAMNOSUS GG 1 EACH CAP.SPRINK PO SCH (17:30)
[2019-01-08] MEDS: AZITHROMYCIN 500 MG in IV D5W 250 ML IV SCH (17:33)
[2019-01-08] MEDS: CEFTRIAXONE 1 G in IV D5W 50 ML IV SCH (18:52)
--- NOTE | 2019-01-08 19:26 | NUR ---
RN CLOSING NOTES PATIENT ASLEEP EASILY AROUSABLE DURING CARE,RESTING COMFORTABLY IN BED, ABLE TO MAKE NEEDS KNOWN, CONFUSED AT TIMES. RESPIRATIONS EVEN AND UNLABORED, PT DENIES ANY PAIN OR DISCOMFORT AT THIS TIME. IV ACCESS TO RFA 20G PATENT AND INTACT NO REDNESS OR INFILTRATION NOTED. BAPTISTE CATHETER PATENT AND INTACT, DRAINING YELLOW URINE WILL CONTINUE TO MONITOR. KEPT CLEAN DRY AND COMFORTABLE CALL LIGHT WITHIN EASY REACH WILL CONTINUE TO MONITOR, ENDORSED TO NEXT SHIFT FOR CONTINUITY OF CARE
[2019-01-08 20:00] VITALS: BP 144/69
--- NOTE | 2019-01-08 20:00 | NUR ---
MS RN INITIAL NOTES Patient in bed, awake, A/O x2. On supplemental oxygen at 2L via NC. IVF infusing, urinary ribera cath in place, denies pain. Maintained safety, sitter at the bedside. Will cont to monitor.
[2019-01-08] MEDS: SIMVASTATIN 40 MG TABLET PO SCH (21:15)
[2019-01-08] MEDS: DONEPEZIL 5 MG TABLET PO SCH (22:37)
[2019-01-09] MEDS: IV NS 0.9% 1,000 ML IV PRN ×2 (00:48→17:03)
--- NOTE | 2019-01-09 06:13 | NUR ---
MS RN CLOSING NOTES Patient in bed, on supplemental oxygen at 2L via NC. IVF infusing, maintained at 75ml/hr. Continued on IV antibiotic as scheduled. Episode of liquid stool this shift, C-diff stool < 3 days of admission send to lab, result pending. Non productive cough with sputum collected and send to lab for respiratory culture GS test. Maintained safety, sitter at the bedside. Will endorse to oncoming RN.
[2019-01-09 06:19] VITALS: BP 145/76
[2019-01-09 06:39] LABS: BASOPHILS % (AUTO) 0.2 % (0.0-2.0); EOSINOPHILS % (AUTO) 0.1 % (0.0-6.0); HEMATOCRIT 41 % (39-51); LYMPHOCYTES # (AUTO) 1.2 /CMM (0.8-4.8); LYMPHOCYTES % (AUTO) 10.4 % (20.0-44.0); MEAN CORPUSCULAR HGB CONC 34 g/dl (31.0-36.0); MEAN CORPUSCULAR VOLUME 80 fL (80-96); MONOCYTES # (AUTO) 0.6 /CMM (0.1-1.30); MONOCYTES % (AUTO) 4.9 % (2.0-12.0); NEUTROPHILS # (AUTO) 9.8 /CMM (1.8-8.9); NEUTROPHILS % (AUTO) 84.4 % (43.0-81.0); PLATELET COUNT (AUTO) 136 /CMM (150-450); RED BLOOD CELL COUNT(AUTO) 5.08 MIL/uL (4.5-6.0); WHITE BLOOD COUNT (AUTO) 11.6 K/uL (4.3-11.0)
[2019-01-09 06:58] LABS: ALANINE AMINOTRANSFERASE 20 U/L (12-78); ALBUMIN 3.2 g/dL (3.4-5.0); ALKALINE PHOSPHATASE 63 U/L (46-116); ASPARTATE AMINOTRANSFERASE 76 U/L (15-37); BILIRUBIN,TOTAL 0.5 mg/dL (0.2-1.0); CALCIUM, SERUM 8.6 mg/dL (8.5-10.1); CARBON DIOXIDE 24 mmol/L (21-32); CHLORIDE 103 mmol/L (98-107); CREATININE 1.1 mg/dL (0.6-1.3); GLUCOSE 99 mg/dL (74-106); MAGNESIUM 1.8 mg/dL (1.8-2.4); PHOSPHORUS 3.3 mg/dL (2.5-4.9); POTASSIUM 3.2 mmol/L (3.5-5.1); SODIUM SERUM 141 mmol/L (136-145); TOTAL PROTEIN, SERUM 7.5 g/dL (6.4-8.2); UREA NITROGEN, BLOOD 20 mg/dL (7-18)
--- NOTE | 2019-01-09 07:10 | NUR ---
MS/RN OPENING NOTES RECEIVED PATIENT IN BED. PATIENT IS A/O X 2. RESPIRATIONS EVEN AND UNLABORED. RECEIVING OXYGEN 2L PER MINUTE VIA NASAL CANNULA. DENIES SOB. DENIES PAIN AT THIS TIME. BAPTISTE CATHETER IN PLACE. NO BLADDER DISTENTION. LFA IV PATENT NS AT 75 ML/HR. SITTER AT BEDSIDE. BED LOW LOCKED, SIDERAILS X2, CALL LIGHT WITHIN REACH. WILL CONTINUE TO MONITOR.
[2019-01-09] MEDS: ALBUTEROL FS 2.5 MG/3 ML VIAL.NEB NEB SCH ×2 (08:13→19:23)
[2019-01-09] MEDS ORDERED: POTASSIUM CHLORIDE 20 MEQ TAB.PRT.SR PO ONE (08:30)
[2019-01-09] MEDS: LACTOBACILLUS RHAMNOSUS GG 1 EACH CAP.SPRINK PO SCH ×2 (09:21→17:04)
[2019-01-09] MEDS: LISINOPRIL (10MG) 10 MG TABLET PO SCH (09:22)
[2019-01-09] MEDS: TAMSULOSIN 0.4 MG CAP.SR.24H PO SCH (09:22)
[2019-01-09] MEDS: CLOPIDOGREL BISULFATE 75 MG TABLET PO SCH (09:23)
[2019-01-09] MEDS: ACETAMINOPHEN 325 MG TABLET PO PRN ×2 (09:24→22:39)
[2019-01-09] MEDS: ENOXAPARIN SODIUM 60 MG/0.6 ML DISP.SYRIN SQ SCH ×2 (09:25→21:43)
[2019-01-09] MEDS: FLUTICASONE/VILANTEROL 1 EACH BLST.W.DEV IH SCH (09:40)
[2019-01-09 17:00] VITALS: BP 126/78
[2019-01-09] MEDS: AZITHROMYCIN 500 MG in IV D5W 250 ML IV SCH (17:04)
--- NOTE | 2019-01-09 17:30 | NUR ---
MS/RN NOTE MESSAGED DR FRAZIER TO OBTAIN ORDER FOR TROPONIN LEVEL RECHECK BUT NO ANSWER AT THIS TIME. DR PADILLA IS AWARE OF TROPONIN LEVEL OF 0.235.
[2019-01-09] MEDS: CEFTRIAXONE 1 G in IV D5W 50 ML IV SCH (18:40)
--- NOTE | 2019-01-09 18:40 | NUR ---
MS/RN NOTE THE PATIENT ALERT AND ORIENTED X2. RECEIVING OXYGEN AT 2L/MIN VIA NASAL CANNULA AND SATURATION IS AT 95%. DENIES SOB. RESPIRATION REGULAR AND UNLABORED. DENIES PAIN. THE PATIENT IN NO APPARENT DISTRESS. LFA G 18 PATENT AND NORMAL SALINE INFUSING AT 75ML/HR. NO S/S INFILTRATION NOTED. BED LOW AND LOCKED. SIDE RAILS UP X3. CALL LIGHT WITHIN REACH. WILL ENDORSE TO CLINICAL DATA PROGRAMMER.
--- NOTE | 2019-01-09 19:35 | NUR ---
MS/RN OPENING NOTES PT AWAKE, RESTING COMFORTABLY IN BED. A/OX2. RECEIVING BREATHING TX. BREATHING EVEN AND UNLABORED. DENIES SOB AND PAIN. IN NO ACUTE DISTRESS. IV TO LFA PATENT AND INTACT RUNNING IVF ORDERED. BED IN LOW/LOCKED POSITION WITH CALL LIGHT IN REACH, BILATERAL UPPER SIDE RAILS IN PLACE AND HOB ELEVATED. WILL CONTINUE TO MONITOR
[2019-01-09 20:00] VITALS: BP 181/96
[2019-01-09 20:05] VITALS: BP 178/97
--- NOTE | 2019-01-09 20:36 | NUR ---
MS/RN NOTES RAPID RESPONSE CALLED AT 2021. PT HAD SUDDEN CHANGE OF MENTAL STATUS S/P X1 VOMITING EPISODE. RESPONSIVE TO STERNAL RUB ONLY, UNABLE TO FOLLOW COMMANDS. BLOOD SUGAR 144, BP 182/82, HR 83, SPO2 95% ON 2L O2. ICU AND RT AT BEDSIDE AT 2024. PT SLOWLY BECOMING MORE AWAKE AFTER ABG COMPLETED. SPOKE TO DR. CARABALLO, AWARE OF PT'S CONDITION AND LATEST VITALS BP: 175/97, HR 83. SPO2 NOW 100%, PREVIOUSLY 93-94% ON 2L O2. AWARE THAT ICU LOGGING ENGINEER ORDERED STAT ABG AND CXR. STATES PT MAY HAVE ASPIRATED. AWAIT RESULTS OF ABG AND CXR AND CONTINUE TO MONITOR FOR A DECLINE IN CONDITION. NO FURTHER ORDERS AT THIS TIME. Addendum: 01/09/19 at 2055 by DAVID KOTHARI RN PT NOW RESPONSIVE TO NAME. OPENS EYES. STATES HE FEELS BETTER. RESTING COMFORTABLY, ABLE TO FOLLOW COMMANDS. WILL CONTINUE TO MONITOR
[2019-01-09 20:39] LABS: ABG BASE EXCESS 0.9 mmol/L; ABG OXYGEN SATURATION 92.7 % (92.0-98.5); ABG PCO2 30.9 mmHg (35.0-45.0); ABG PH 7.493 (7.350-7.450); ABG PO2 63.8 mmHg (75.0-100.0); AaDO2 99.4 mmHg; MetHb 0.5 % (0.0-1.5); O2Hb 91.3 % (94.0-97.0); SITE, ABG Left Brachial; VENT MODE, BG 2L NC
[2019-01-09] MEDS: DONEPEZIL 5 MG TABLET PO SCH (21:39)
[2019-01-09] MEDS: SIMVASTATIN 40 MG TABLET PO SCH (21:39)
[2019-01-09 22:00] VITALS: BP 182/82
--- NOTE | 2019-01-09 22:20 | NUR ---
MS/RN NOTES PT STILL WITH ELEVATED BP 182/90, HR 84. NOTIFIED DR. CARABALLO, WITH ONE TIME ORDER FOR HYDRALAZINE 25MG PO ONCE. ORDERS NOTED, READBACK PER PROTOCOL AND WILL CARRY OUT.
[2019-01-09 22:30] VITALS: BP 182/90
[2019-01-09] MEDS ORDERED: hydrALAZINE HCL 25 MG TABLET PO ONE (22:30)
[2019-01-09] MEDS ORDERED: PROMETHAZINE HCL 25 MG TABLET PO PRN (22:30)
[2019-01-10] VITALS: BP 160/87
[2019-01-10] MEDS: ACETAMINOPHEN 325 MG TABLET PO PRN (04:51)
[2019-01-10 05:00] VITALS: BP 173/101
[2019-01-10] MEDS ORDERED: hydrALAZINE HCL 25 MG TABLET PO PRN (05:30)
--- NOTE | 2019-01-10 05:30 | NUR ---
MS/RN NOTES PT STILL NOTED WITH ELEVATED BLOOD PRESSURE. 184/98, HR 86. NOTIFIED DR. CARABALLO, WITH ORDERS FOR HYDRALAZINE 25MG PO Q6H PRN. ORDERS NOTED AND CARRIED OUT. PT ALSO C/O HEADACHE. ADMINISTERED PRN TYLENOL.
--- NOTE | 2019-01-10 07:20 | NUR ---
MS/RN CLOSING NOTES PT RESTING IN BED WITH EYES CLOSED. SITTER AT BEDSIDE. SEMI FOWLERS. RESPONSIVE TO NAME AND TOUCH. REMAINS ON 2L O2 VIA NC, BREATHING EVEN AND UNLABORED. IN NO ACUTE DISTRESS. NO S/S OF SOB, PAIN OR NAUSEA AT THIS TIME. IV TO LFA PATENT AND INTACT RUNNING IVF ORDERED. TURNED/REPOSITIONED Q2H. PRN HYDRALAZINE ADMINISTERED FOR ELEVATED BP. ASPIRATION PRECAUTIONS MAINTAINED. BED IN LOW/LOCKED POSITION WITH CALL LIGHT IN REACH, BILATERAL UPPER SIDE RAILS IN PLACE. ENDORSED TO DAY SHIFT RN ROBINSON.
--- NOTE | 2019-01-10 07:23 | NUR ---
MS RN OPENING NOTES RECEIVED PT LAYING IN BED W/ HOB SLIGHTLY ELEVATED. PT RESTING COMFORTABLY. RESPONDS TO NAME AND TOUCH AT THIS TIME. RESPIRATIONS ARE EVEN AND UNLABORED, NOT IN ANY ACUTE DISTRESS NOTED. NO FACIAL GRIMACING OR MOANING NOTED. IV SITE TO LFA INTACT, NO INFILTRATION NOTED. DRESSING KEPT CLEAN AND DRY. IV FLUIDS RUNNING AT 75ML/HR, TOLERATING WELL. SAFETY MEASURES ARE IN PLACE. SITTER AT BEDSIDE. WILL MONITOR THROUGHOUT SHIFT FOR CONTINUITY OF CARE.
[2019-01-10] MEDS: ALBUTEROL FS 2.5 MG/3 ML VIAL.NEB NEB SCH ×2 (07:58→20:06)
[2019-01-10 08:00] VITALS: BP 159/83
[2019-01-10] MEDS: CLOPIDOGREL BISULFATE 75 MG TABLET PO SCH (08:32)
[2019-01-10] MEDS: LISINOPRIL (10MG) 10 MG TABLET PO SCH (08:32)
[2019-01-10] MEDS: AMLODIPINE BESYLATE 5 MG TABLET PO SCH (08:33)
[2019-01-10] MEDS: HYDROCODONE/APAP 5/325MG 1 EACH TABLET PO PRN ×4 (08:34→22:43)
[2019-01-10] MEDS: METOPROLOL TARTRATE 25 MG TABLET PO SCH ×2 (08:35→21:57)
[2019-01-10] MEDS: LACTOBACILLUS RHAMNOSUS GG 1 EACH CAP.SPRINK PO SCH ×2 (08:35→16:49)
[2019-01-10] MEDS: TAMSULOSIN 0.4 MG CAP.SR.24H PO SCH (08:35)
[2019-01-10] MEDS: FLUTICASONE/VILANTEROL 1 EACH BLST.W.DEV IH SCH (08:36)
[2019-01-10] MEDS: IV NS 0.9% 1,000 ML IV PRN (09:56)
--- NOTE | 2019-01-10 13:31 | NUR ---
MS RN NOTES-- PT NOT IN ANY APPARENT DISTRESS. ABLE TO MAKE NEEDS KNOWN. NEEDS RENDERED. WILL CONTINUE TO MONITOR.
[2019-01-10] MEDS: AZITHROMYCIN 500 MG in IV D5W 250 ML IV SCH (16:48)
[2019-01-10] MEDS: CEFTRIAXONE 1 G in IV D5W 50 ML IV SCH (18:02)
--- NOTE | 2019-01-10 18:57 | NUR ---
MS RN CLOSING NOTES ALL DUE MEDS GIVEN, NEEDS MET AND RENDERED. PT IS A/O X3, AFEBRILE. RESPIRATIONS ARE EVEN AND UNLABORED, NOT IN ANY ACUTE DISTRESS NOTED. PT MEDICATED WITH NORCO 5/325 AND NOTED TO BE EFFECTIVE. PT DENEIS ANY SOB, N/V. IV SITE INTACT, NO INFILTRATION NOTED. DRESSING KEPT CLEAN AND DRY. SAFETY MEASURES ARE IN PLACE. SITTER AT BEDSIDE. SAFETY MEASURES ARE IN PLACE. WILL ENDORSE TO NEXT SHIFT FOR CONTINUITY OF CARE.
--- NOTE | 2019-01-10 19:05 | NUR ---
MS/RN OPENING NOTES PT RECEIVED WITH EYES CLOSED. HOB ELEVATED. OPENS EYES TO NAME AND LIGHT TOUCH. ON 2L O2 VIA NC, BREATHING EVEN AND UNLABORED. DENIES SOB AND PAIN AT THIS TIME. IV TO LFA PATENT AND INTACT RUNNING IVF ORDERED. BAPTISTE IN PLACE AND DRAINING TO GRAVITY. SITTER AT BEDSIDE. BED IN LOW/LOCKED POSITION WITH CALL LIGHT IN REACH, BILATERAL UPPER SIDE RAILS IN PLACE. ON ASPIRATION PRECAUTIONS. WILL CONTINUE TO MONITOR
[2019-01-10 20:00] VITALS: BP 136/74
[2019-01-10] MEDS ORDERED: ENOXAPARIN SODIUM 60 MG/0.6 ML DISP.SYRIN SQ SCH (21:00)
[2019-01-10] MEDS: DONEPEZIL 5 MG TABLET PO SCH (21:55)
[2019-01-10] MEDS ORDERED: SIMVASTATIN 20 MG TABLET PO SCH (22:00)
--- NOTE | 2019-01-10 22:47 | NUR ---
MS/RN NOTES PT C/O GENERALIZED 7/10 PAIN. REQUESTING NORCO. ADMINISTERED ORDERED
--- NOTE | 2019-01-11 00:57 | NUR ---
MS/RN NOTES PT REQUESTING SLEEPING PILL. V/S STABLE. ADMINISTERED ORDERED.
[2019-01-11] MEDS: IV NS 0.9% 1,000 ML IV PRN (02:17)
--- NOTE | 2019-01-11 06:55 | NUR ---
MS/RN CLOSING NOTES PT WITH EYES CLOSED, OPENS TO NAME AND LIGHT TOUCH. A/OX2. SITTER AT BEDSIDE. ON 2L O2 VIA NC, BREATHING EVEN AND UNLABORED. HOB ELEVATED. NO S/S OF SOB OR PAIN, NO FACIAL GRIMACING AND IN NO ACUTE DISTRESS. IV TO LFA PATENT AND INTACT RUNNING IVF ORDERED. ASPIRATION PRECAUTIONS IMPLEMENTED DURING SHIFT. TURNED/REPOSITIONED Q2H, HEELS OFFLOADED. BAPTISTE IN PLACE AND DRAINING TO GRAVITY. NO SIGNIFICANT CHANGES OVERNIGHT. ABLE TO MAKE NEEDS KNOWN. BED REMAINS IN LOW/LOCKED POSITION WITH CALL LIGHT IN REACH, BILATERAL UPPER SIDE RAILS IN PLACE. WILL ENDORSE TO DAY SHIFT RN ROBINSON.
--- NOTE | 2019-01-11 07:30 | NUR ---
ms rn received on bed, awake,alert,oriented x2,not in any form of distress, respirations even and unlabored,no sob noted, lungs are clear,abdomen soft,positive bowel sounds,denies pain at this time,w/ a sitter for safety and comfort,all needs attended.
--- NOTE | 2019-01-11 08:40 | NUR ---
ms paula breakfast served,due meds given,tolerated well.
[2019-01-11 08:53] LABS: BASOPHILS # (AUTO) 0.1 /CMM (0.0-0.2); BASOPHILS % (AUTO) 0.6 % (0.0-2.0); EOSINOPHILS % (AUTO) 0.9 % (0.0-6.0); HEMATOCRIT 45 % (39-51); HEMOGLOBIN 15.3 g/dL (13.5-17.5); LYMPHOCYTES # (AUTO) 1.9 /CMM (0.8-4.8); LYMPHOCYTES % (AUTO) 16.3 % (20.0-44.0); MEAN CORPUSCULAR HGB CONC 34 g/dl (31.0-36.0); MEAN CORPUSCULAR VOLUME 81 fL (80-96); MONOCYTES # (AUTO) 0.7 /CMM (0.1-1.30); MONOCYTES % (AUTO) 5.8 % (2.0-12.0); NEUTROPHILS % (AUTO) 76.4 % (43.0-81.0); PLATELET COUNT (AUTO) 157 /CMM (150-450); RED BLOOD CELL COUNT(AUTO) 5.61 MIL/uL (4.5-6.0); WHITE BLOOD COUNT (AUTO) 11.7 K/uL (4.3-11.0)
[2019-01-11] MEDS: ALBUTEROL FS 2.5 MG/3 ML VIAL.NEB NEB SCH (08:54)
[2019-01-11] MEDS: LACTOBACILLUS RHAMNOSUS GG 1 EACH CAP.SPRINK PO SCH ×2 (09:07→17:59)
[2019-01-11] MEDS: CLOPIDOGREL BISULFATE 75 MG TABLET PO SCH (09:07)
[2019-01-11] MEDS: TAMSULOSIN 0.4 MG CAP.SR.24H PO SCH (09:07)
[2019-01-11] MEDS: FLUTICASONE/VILANTEROL 1 EACH BLST.W.DEV IH SCH (09:08)
[2019-01-11] MEDS: AMLODIPINE BESYLATE 5 MG TABLET PO SCH (09:10)
[2019-01-11] MEDS: METOPROLOL TARTRATE 25 MG TABLET PO SCH (09:11)
[2019-01-11] MEDS: LISINOPRIL (10MG) 10 MG TABLET PO SCH (09:11)
[2019-01-11] MEDS: HYDROCODONE/APAP 5/325MG 1 EACH TABLET PO PRN ×3 (09:19→18:00)
--- NOTE | 2019-01-11 10:30 | NUR ---
ms rn was seen by dr. arciniega w/ orders to go to [facility].
[2019-01-11 11:39] LABS: BAND % (MANUAL) 1 % (0.0-5.0); LYMPHOCYTES % (MANUAL) 14 % (16-48); MONOCYTES % (MANUAL) 7 % (0-11.0); NEUTROPHILS % (MANUAL) 78 (42-76)
[2019-01-11] MEDS ORDERED: LISINOPRIL (10MG) 10 MG TABLET PO SCH (17:00)
[2019-01-11] MEDS ORDERED: AZITHROMYCIN 250 MG TABLET PO SCH (17:00)
--- NOTE | 2019-01-11 17:30 | NUR ---
ms rn patient transferred to [facility], report given to akbar paula, all needs attended.
[2019-01-11 17:59] VITALS: BP 147/72
[2019-01-12] MEDS ORDERED: AMLODIPINE BESYLATE 5 MG TABLET PO SCH (09:00)
== END 2019-01-11 18:27 | DRG 193 ==
LOC: ER 11:06 → TELE 14:53 → MED 01-08 09:48
PROVIDERS: ADMIT Internal Medicine; ATTEND Internal Medicine
DX: J15.9 Unspecified bacterial pneumonia (principal); J96.01 Acute respiratory failure with hypoxia; I21.A1 Myocardial infarction type 2; G93.41 Metabolic encephalopathy; N17.0 Acute kidney failure with tubular necrosis; I11.0 Hypertensive heart disease with heart failure; E86.0 Dehydration; I50.9 Heart failure, unspecified; Z87.891 Personal history of nicotine dependence; Z86.73 Personal history of transient ischemic attack (TIA), and cerebral infarction without residual deficits; Z86.718 Personal history of other venous thrombosis and embolism; Z86.711 Personal history of pulmonary embolism; Z79.02 Long term (current) use of antithrombotics/antiplatelets; Z79.51 Long term (current) use of inhaled steroids; Z79.82 Long term (current) use of aspirin; N40.0 Benign prostatic hyperplasia without lower urinary tract symptoms; K21.9 Gastro-esophageal reflux disease without esophagitis; F03.90 Unspecified dementia, unspecified severity, without behavioral disturbance, psychotic disturbance, mood disturbance, and anxiety; Z79.899 Other long term (current) drug therapy; Z98.890 Other specified postprocedural states; J45.909 Unspecified asthma, uncomplicated
CPT/HCPCS: 36415; 36600; 70450-TC; 71045-TC; 72170-TC; 80048-TC; 80053-TC; 80061-TC; 80305; 81000-TC; 82962-TC; 83735-TC; 83880; 84100-TC; 84484-TC; 85025-TC; 85730-TC; 87070-TC; 87081-TC; 92611-TC; 93307-TC; 93970-TC; G0378; G0480; J0456; J0696; J1650; J2405; J2543; J7030; J7060; Q0169

== ENCOUNTER 2019-01-25 22:10 | Inpatient (IN) | payer MEDICARE, OTHER ==
[~2019-01-25] VITALS: Ht 172.7 cm; Wt 60.8 kg
[~2019-01-25 22:10] MED LIST changes: -ASPI-1169 PO; -DOCU-141 PO; +DONE10TA44 PO; +LISI10TA5 PO; -LISI10TA59 PO; -METO-295 PO; -PANT40TA2 PO; -TAMS-12 PO; +TAMS0.4C34 PO
--- NOTE | 2019-01-25 22:30 | NUR ---
PT [id number] FROM HOME C/O GEN WEAKNESS X 1 DAY, PATIENT STATES GLF X 2 TODAY. DENIES HEAD TRAUMA, - LOC. VOMITED X 1 TODAY. PT AOX2. NAD NOTED. RESP EVEN AND UNLABORED. PT ON MONITOR IN BED 9. WILL CONTINUE TO MONITOR.
--- NOTE | 2019-01-25 22:50 | NUR ---
PHLEB AT BEDSIDE FOR LAB DRAW
[2019-01-25] MEDS ORDERED: IV NS 0.9% 500 ML BAG IV ONE (23:00)
[2019-01-25 23:23] LABS: BASOPHILS # (AUTO) 0.1 /CMM (0.0-0.2); BASOPHILS % (AUTO) 0.2 % (0.0-2.0); HEMATOCRIT 43 % (39-51); HEMOGLOBIN 13.9 g/dL (13.5-17.5); LYMPHOCYTES # (AUTO) 0.9 /CMM (0.8-4.8); LYMPHOCYTES % (AUTO) 3.8 % (20.0-44.0); MEAN CORPUSCULAR HGB CONC 33 g/dl (31.0-36.0); MEAN CORPUSCULAR VOLUME 83 fL (80-96); MONOCYTES % (AUTO) 4.3 % (2.0-12.0); NEUTROPHILS # (AUTO) 20.9 /CMM (1.8-8.9); NEUTROPHILS % (AUTO) 91.7 % (43.0-81.0); PLATELET COUNT (AUTO) 272 /CMM (150-450); RED BLOOD CELL COUNT(AUTO) 5.13 MIL/uL (4.5-6.0); WHITE BLOOD COUNT (AUTO) 22.8 K/uL (4.3-11.0)
[2019-01-25 23:38] LABS: ALANINE AMINOTRANSFERASE 18 U/L (12-78); ALBUMIN 3.4 g/dL (3.4-5.0); ALKALINE PHOSPHATASE 94 U/L (46-116); ASPARTATE AMINOTRANSFERASE 40 U/L (15-37); BILIRUBIN,DIRECT 0.1 mg/dL (0.0-0.2); BILIRUBIN,TOTAL 0.4 mg/dL (0.2-1.0); CALCIUM, SERUM 8.9 mg/dL (8.5-10.1); CARBON DIOXIDE 21 mmol/L (21-32); CHLORIDE 96 mmol/L (98-107); CREATININE 6.7 mg/dL (0.6-1.3); GLUCOSE 134 mg/dL (74-106); SODIUM SERUM 133 mmol/L (136-145); TOTAL PROTEIN, SERUM 7.7 g/dL (6.4-8.2); UREA NITROGEN, BLOOD 72 mg/dL (7-18)
[2019-01-25 23:40] LABS: POTASSIUM 6.3 mmol/L (3.5-5.1)
[2019-01-26] VITALS (7 sets, daily range): BP systolic 81–118; BP diastolic 41–71
[2019-01-26] MEDS ORDERED: SODIUM POLYSTYRENE SULFONATE 15 G/60 ML BOTTLE PO ONE
[2019-01-26] MEDS ORDERED: LIDOCAINE 2% JEL UROJET 10 ML MM ONE ×2 (00:30→00:38)
[2019-01-26] MEDS ORDERED: MORPHINE SULFATE INJ 2 MG/ML DISP.SYRIN IV ONE (00:30)
[2019-01-26] MEDS ORDERED: SODIUM POLYSTYRENE SULFONATE 15 G/60 ML BOTTLE ONE (00:37)
[2019-01-26] MEDS ORDERED: MORPHINE SULFATE INJ 4 MG/ML DISP.SYRIN ONE (00:39)
--- NOTE | 2019-01-26 01:11 | NUR ---
URINE COLLECTED AND SENT TO LAB
[2019-01-26] MEDS ORDERED: PIPERACILLIN /TAZOBACTAM 3.375 G VIAL IV ONE (01:13)
[2019-01-26] MEDS: PIPERACILLIN /TAZOBACTAM 3.375 G in IV D5W 50 ML IV SCH ×2 (01:22→01:48)
[2019-01-26] MEDS ORDERED: IV NS 0.9% 1,000 ML BAG IV ONE ×2 (01:30)
[2019-01-26] MEDS ORDERED: ONDANSETRON HCL/PF 4 MG/2 ML VIAL IVP PRN (01:30)
[2019-01-26] MEDS ORDERED: ACETAMINOPHEN 325 MG TABLET PO PRN (01:30)
[2019-01-26] MEDS ORDERED: MORPHINE SULFATE INJ 2 MG/ML DISP.SYRIN IV PRN (01:30)
--- NOTE | 2019-01-26 01:40 | NUR ---
REPORT GIVEN TO RADHA HANSEN FOR ROBINSON
--- NOTE | 2019-01-26 01:42 | NUR ---
BRIDGETT RN NOTE PATIENT RECEIVED IN [facility] FROM ER NO CONFUSED AND MUMBLING. PATIEN WAS SIPPING ON [place]. PATIENT A/O X 2. NO S/S OF RESP DISTRES LUNG SOUNDS CLEAR TO AUSCULTATION. PATIENT. DENIES CHEST PAIN HEART SOUNDS NORMAL. PATIENT ON 2L O2 SATING 95%. PATIENT SKIN SHOWS BREAKDOWN ON SACRUM, BUTTOCKS, AND PERIANAL AREA. PATIENT HAS 20 G IN RAC. PATENT INTACT NO S/S OF INFILTRATION/ INFECTION. PATIENT ABLE TO FOLLOW COMMANDS. RN WILL CONTINUE TO MONITOR PATIENT.
[2019-01-26 01:46] LABS: APPEARANCE,URINE SL CLOUDY (CLEAR); BILIRUBIN,URINE 1+ (NEGATIVE); BLOOD, URINE 3+ Ery/uL (NEGATIVE); COLOR,URINE YELLOW (YELLOW); KETONES,URINE TRACE (NEGATIVE); LEUKOCYTE ESTERASE ,URINE NEGATIVE (NEGATIVE); NITRITE, URINE NEGATIVE (NEGATIVE); PH,URINE 5.5 (5.0-8.0); PROTEIN,URINE 2+ mg/dl (NEGATIVE); UGLUCOSE NEGATIVE (NEGATIVE); UROBILINOGEN,URINE 0.2 EU/dL (0.2)
[2019-01-26 02:01] LABS: BACTERIA,URINE Moderate /HPF (None Seen); RBC,URINE 21-50 /HPF (0-2); SQUAMOUS EPITHELIAL CELL,UR Rare /HPF (None Seen)
--- NOTE | 2019-01-26 02:16 | NUR ---
0216 RASHAAD DUFFY NOTIFIED OF CRITICAL PROCALCITONIN RESULT 2.92 WITH NO ORDER MADE.
[2019-01-26] MEDS ORDERED: VANCOMYCIN 1 GM in IV D5W 250ml IV ONE (03:00)
[2019-01-26] MEDS: IV NS 0.9% 1,000 ML IV SCH ×3 (03:41→18:03)
[2019-01-26] MEDS ORDERED: VANCOMYCIN 1 GM VIAL ONE (03:53)
--- NOTE | 2019-01-26 05:00 | NUR ---
BRIDGETT RN NOTE QUESTIONED LOCAL AREA NETWORK ADMINISTRATOR EZEKILE ABOOUT 2000 NS BOLUS X 1 TIME. LOCAL AREA NETWORK ADMINISTRATOR CLARIFIED SAYING THE PATIENT RECEIVED 1.5 IN THE ER, WE ARE TOO FINISH THE OTHER 500. RN CHANGED THE ORDER TO 00 NS BOLUS X1 NOW.
[2019-01-26] MEDS ORDERED: IV NS 0.9% 500 ML IV ONE (05:30)
[2019-01-26 05:43] LABS: ALANINE AMINOTRANSFERASE 17 U/L (12-78); ALBUMIN 3.1 g/dL (3.4-5.0); ALKALINE PHOSPHATASE 89 U/L (46-116); ASPARTATE AMINOTRANSFERASE 35 U/L (15-37); BILIRUBIN,TOTAL 0.5 mg/dL (0.2-1.0); CALCIUM, SERUM 8.7 mg/dL (8.5-10.1); CARBON DIOXIDE 22 mmol/L (21-32); CHLORIDE 102 mmol/L (98-107); CREATININE 6.3 mg/dL (0.6-1.3); GLUCOSE 162 mg/dL (74-106); MAGNESIUM 2.2 mg/dL (1.8-2.4); POTASSIUM 5.7 mmol/L (3.5-5.1); SODIUM SERUM 137 mmol/L (136-145); TOTAL PROTEIN, SERUM 7.2 g/dL (6.4-8.2); UREA NITROGEN, BLOOD 79 mg/dL (7-18)
[2019-01-26 05:54] LABS: PHOSPHORUS 8.5 mg/dL (2.5-4.9)
[2019-01-26 05:58] LABS: BASOPHILS % (AUTO) 0.1 % (0.0-2.0); HEMATOCRIT 41 % (39-51); HEMOGLOBIN 13.7 g/dL (13.5-17.5); LYMPHOCYTES # (AUTO) 0.9 /CMM (0.8-4.8); LYMPHOCYTES % (AUTO) 4.5 % (20.0-44.0); MEAN CORPUSCULAR HGB CONC 34 g/dl (31.0-36.0); MEAN CORPUSCULAR VOLUME 82 fL (80-96); MONOCYTES # (AUTO) 0.9 /CMM (0.1-1.30); MONOCYTES % (AUTO) 4.4 % (2.0-12.0); NEUTROPHILS # (AUTO) 18.6 /CMM (1.8-8.9); PLATELET COUNT (AUTO) 224 /CMM (150-450); RED BLOOD CELL COUNT(AUTO) 4.96 MIL/uL (4.5-6.0); WHITE BLOOD COUNT (AUTO) 20.5 K/uL (4.3-11.0)
[2019-01-26] MEDS ORDERED: PIPERACILLIN /TAZOBACTAM 3.375 G in IV D5W 50 ML IV SCH (06:00)
[2019-01-26 06:47] LABS: CHOLESTEROL 97 mg/dL (<200); HDL CHOLESTEROL 39 mg/dL (40-60); LDL 36 mg/dL (0-99); THYROID STIMULATING HORMONE 0.778 uIU/mL (0.358-3.74); TRIGLYCERIDES 108 mg/dL (30-150)
[2019-01-26] MEDS ORDERED: FLUTICASONE/SALMETEROL DISKUS IH SCH (07:00)
--- NOTE | 2019-01-26 07:15 | NUR ---
BRIDGETT RN NOTE NO ACUTE CHANGES THROUGHOUT THE SHIFT. WILL ENDORSE TO AM NURSE ABOUT THE FLUID REASSESSMENT AFTER 500 BOLUS IS COMPLETED. CARE RENDERED ORDERED. PATIENT STABLE
[2019-01-26] MEDS ORDERED: FEE PK DOSING 1 MIN EA MC ONE (08:27)
[2019-01-26] MEDS ORDERED: PANTOPRAZOLE 40 MG VIAL IV SCH (09:00)
[2019-01-26] MEDS: TAMSULOSIN 0.4 MG CAP.SR.24H PO SCH (10:13)
[2019-01-26] MEDS: FLUTICASONE/VILANTEROL 1 EACH BLST.W.DEV IH SCH (10:13)
[2019-01-26] MEDS: CLOPIDOGREL BISULFATE 75 MG TABLET PO SCH (10:13)
[2019-01-26] MEDS ORDERED: PIPERACILLIN /TAZOBACTAM 2.25 G in IV D5W 50 ML IV SCH (13:00)
[2019-01-26] MEDS: PANTOPRAZOLE 40 MG/PACK PACK PO SCH (14:30)
--- NOTE | 2019-01-26 19:00 | NUR ---
RN NOTE PT REMAINED STABLE, AOX2, NO SIGNIFICANT CHANGE, NO FEVER, VS STABLE, PT HAD PHYSICAL THERAPY, WAS ABLE TO GET OUT OF BED AND HAVE COUPLE STEPS, TOLERATED PO INTAKE, MEDS GIVEN, NEEDS MET. WILL ENDORSE TO EQUINE VET.
--- NOTE | 2019-01-26 19:40 | NUR ---
BRIDGETT RN NOTES, RECEIVED PATIENT IN BED, AWAKE A/O TO SELF, NO S/S OF SOB/RESPIRATORY DISTRESS, PATIENT ON 2L O2 WITH OPTIMAL O2 SAT LEVEL, SR IN TELE MONITOR IN THE 80S, IV ACCESS 20 G IN RAC DISLODGED AT THIS TIME, WILL INSERT ANOTHER ONE, CALL LIGHT W/I REACH, ALL NEEDS PROVIDED, BED LOCKED AND IN LOW POSITION, WITH ALARM ON, WILL CONTINUE TO MONITOR PATIENT CLOSELY.
[2019-01-26] MEDS: CEFEPIME 1 GM in IV D5W 50 ML IV SCH (20:35)
[2019-01-26] MEDS: AZITHROMYCIN 250 MG TABLET PO SCH (20:58)
[2019-01-26] MEDS: SIMVASTATIN 40 MG TABLET PO SCH (22:55)
[2019-01-27] VITALS: BP 98/53
[2019-01-27 04:00] VITALS: BP 103/48
[2019-01-27] MEDS: IV NS 0.9% 1,000 ML IV SCH ×2 (04:36→18:35)
--- NOTE | 2019-01-27 06:50 | NUR ---
BRIDGETT RN NOTES, PATIENT IN BED, SLEEPING AT THIS TIME, NO S/S OF SOB/RESPIRATORY DISTRESS, PATIENT ON 2L O2 WITH OPTIMAL O2 SAT LEVEL, IV ACCESS ON LEFT HAND PATENT AND INTACT, IVF INFUSING WELL AND PATIENT TOLERATED WELL, NO S/S OF INFILTRATION, CALL LIGHT W/I REACH, ALL NEEDS PROVIDED, BED LOCKED AND IN LOW POSITION, WITH ALARM ON, NO SIGNIFICANT CHANGE IN CONDITION, WILL ENDORSE CONTINUITY OF CARE TO ONCOMING NURSE.
[2019-01-27] MEDS: ALBUTEROL FS 2.5 MG/0.5 ML VIAL.NEB NEB SCH ×2 (07:30→19:38)
[2019-01-27 07:41] LABS: CALCIUM, SERUM 8.2 mg/dL (8.5-10.1); CARBON DIOXIDE 21 mmol/L (21-32); CHLORIDE 108 mmol/L (98-107); CREATININE 4.6 mg/dL (0.6-1.3); GLUCOSE 96 mg/dL (74-106); POTASSIUM 4.7 mmol/L (3.5-5.1); SODIUM SERUM 143 mmol/L (136-145); UREA NITROGEN, BLOOD 74 mg/dL (7-18)
[2019-01-27 08:00] VITALS: BP 103/51
[2019-01-27 08:20] LABS: BASOPHILS % (AUTO) 0.2 % (0.0-2.0); EOSINOPHILS % (AUTO) 0.2 % (0.0-6.0); HEMATOCRIT 36 % (39-51); HEMOGLOBIN 12.1 g/dL (13.5-17.5); LYMPHOCYTES # (AUTO) 0.8 /CMM (0.8-4.8); LYMPHOCYTES % (AUTO) 6.2 % (20.0-44.0); MEAN CORPUSCULAR HGB CONC 33 g/dl (31.0-36.0); MEAN CORPUSCULAR VOLUME 84 fL (80-96); MONOCYTES # (AUTO) 0.6 /CMM (0.1-1.30); MONOCYTES % (AUTO) 4.6 % (2.0-12.0); NEUTROPHILS # (AUTO) 10.9 /CMM (1.8-8.9); NEUTROPHILS % (AUTO) 88.8 % (43.0-81.0); PLATELET COUNT (AUTO) 190 /CMM (150-450); RED BLOOD CELL COUNT(AUTO) 4.36 MIL/uL (4.5-6.0); WHITE BLOOD COUNT (AUTO) 12.3 K/uL (4.3-11.0)
[2019-01-27] MEDS: CLOPIDOGREL BISULFATE 75 MG TABLET PO SCH (08:56)
[2019-01-27] MEDS: TAMSULOSIN 0.4 MG CAP.SR.24H PO SCH (08:57)
[2019-01-27] MEDS: FLUTICASONE/VILANTEROL 1 EACH BLST.W.DEV IH SCH (08:57)
[2019-01-27] MEDS: PANTOPRAZOLE 40 MG/PACK PACK PO SCH (09:01)
[2019-01-27 12:00] VITALS: BP 96/55
[2019-01-27 16:00] VITALS: BP 123/55
[2019-01-27] MEDS: LACTOBACILLUS RHAMNOSUS GG 1 EACH CAP.SPRINK PO SCH (18:21)
[2019-01-27 20:00] VITALS: BP 106/53
[2019-01-27] MEDS: AZITHROMYCIN 250 MG TABLET PO SCH (22:22)
[2019-01-27] MEDS: SIMVASTATIN 40 MG TABLET PO SCH (22:22)
[2019-01-27] MEDS: CEFEPIME 1 GM in IV D5W 50 ML IV SCH (22:22)
[2019-01-28] VITALS: BP 126/63
[2019-01-28 03:10] LABS: BASOPHILS % (AUTO) 0.3 % (0.0-2.0); EOSINOPHILS % (AUTO) 0.9 % (0.0-6.0); HEMATOCRIT 31 % (39-51); HEMOGLOBIN 10.8 g/dL (13.5-17.5); LYMPHOCYTES % (AUTO) 9.5 % (20.0-44.0); MEAN CORPUSCULAR HGB CONC 34 g/dl (31.0-36.0); MEAN CORPUSCULAR VOLUME 82 fL (80-96); MONOCYTES # (AUTO) 0.5 /CMM (0.1-1.30); MONOCYTES % (AUTO) 5.1 % (2.0-12.0); NEUTROPHILS # (AUTO) 8.8 /CMM (1.8-8.9); NEUTROPHILS % (AUTO) 84.2 % (43.0-81.0); PLATELET COUNT (AUTO) 169 /CMM (150-450); RED BLOOD CELL COUNT(AUTO) 3.83 MIL/uL (4.5-6.0); WHITE BLOOD COUNT (AUTO) 10.5 K/uL (4.3-11.0)
[2019-01-28] MEDS: IV NS 0.9% 1,000 ML IV SCH ×2 (03:11→17:02)
[2019-01-28 03:47] LABS: ALANINE AMINOTRANSFERASE 14 U/L (12-78); ALBUMIN 2.1 g/dL (3.4-5.0); ALKALINE PHOSPHATASE 69 U/L (46-116); ASPARTATE AMINOTRANSFERASE 16 U/L (15-37); BILIRUBIN,TOTAL 0.4 mg/dL (0.2-1.0); CARBON DIOXIDE 20 mmol/L (21-32); CHLORIDE 111 mmol/L (98-107); GLUCOSE 98 mg/dL (74-106); MAGNESIUM 1.7 mg/dL (1.8-2.4); SODIUM SERUM 142 mmol/L (136-145); TOTAL PROTEIN, SERUM 5.5 g/dL (6.4-8.2); UREA NITROGEN, BLOOD 60 mg/dL (7-18)
[2019-01-28 04:00] VITALS: BP 126/65
[2019-01-28] MEDS ORDERED: VANCOMYCIN 0.75 GM in IV D5W 250 ML IV SCH ×2 (04:00→16:00)
[2019-01-28] MEDS: ALBUTEROL FS 2.5 MG/0.5 ML VIAL.NEB NEB SCH ×2 (07:46→19:59)
[2019-01-28 08:00] VITALS: BP 149/64
--- NOTE | 2019-01-28 08:00 | NUR ---
BRIDGETT RN AM NOTES, RECEIVED PATIENT IN BED, AWAKE A/O TO SELF, NO S/S OF SOB/RESPIRATORY DISTRESS, PATIENT ON 2L O2 WITH OPTIMAL O2 SAT LEVEL, SR IN TELE MONITOR IN THE 80S, IV ACCESS 20 G TO LT HAND WITH IV NS AT 100 ML/HR INFUSING WELL AND RT ARM MIDLINE. CALL LIGHT W/IN REACH, ALL NEEDS ATTENDED, BED LOCKED AND IN LOW POSITION, WITH ALARM ON, PT'S NEPHEW, DR MARIE AND ASSISTED ON HOW TO OBTAIN ADVANCE DIRECTIVES AND POLST.WILL CONTINUE TO MONITOR PATIENT CLOSELY.
[2019-01-28] MEDS ORDERED: Magnesium 1GM/D5W 100ML PREMIX 50 ML IV SCH (08:37)
[2019-01-28] MEDS: TAMSULOSIN 0.4 MG CAP.SR.24H PO SCH (08:46)
[2019-01-28] MEDS: CLOPIDOGREL BISULFATE 75 MG TABLET PO SCH (08:46)
[2019-01-28] MEDS: LACTOBACILLUS RHAMNOSUS GG 1 EACH CAP.SPRINK PO SCH ×2 (08:46→17:02)
[2019-01-28] MEDS: PANTOPRAZOLE 40 MG/PACK PACK PO SCH (08:47)
--- NOTE | 2019-01-28 09:37 | NUR ---
WOUND CARE CONSULT WOUND CARE RECEIVED CONSULT FOR SKIN BREAKDOWN ON SACRAL,GLUTEAL,AND PERINEAL AREAS. WOUND CARE WILL DEFER CONSULT AND ALL TREATMENT PLANS TO PLASTIC SURGICAL TEAM WHO ARE CURRENTLY FOLLOWING THIS PATIENT. PATIENT WITH RENEE AT 11, ALL PRESSURE ULCER PREVENTION MEASURES ARE NOTED TO BE IN PLACE AT THIS TIME. WILL SEE PRN.
[2019-01-28] MEDS: FLUTICASONE/VILANTEROL 1 EACH BLST.W.DEV IH SCH (09:47)
--- NOTE | 2019-01-28 13:35 | NUR ---
PT SEEN BY P.T. AND AMBULATING WITH P.T. USING FWW.PT TOLERATED WELL.
[2019-01-28 14:47] LABS: OCCULT BLOOD STOOL POSITIVE (NEGATIVE)
[2019-01-28 16:00] VITALS: BP 145/59
[2019-01-28] MEDS: ACETAMINOPHEN W/ CODEINE#3 1 EA TABLET PO PRN (17:02)
[2019-01-28 20:00] VITALS: BP 152/82
[2019-01-28] MEDS: CEFEPIME 1 GM in IV D5W 50 ML IV SCH (20:33)
[2019-01-28] MEDS: AZITHROMYCIN 250 MG TABLET PO SCH (20:33)
[2019-01-28] MEDS: SIMVASTATIN 40 MG TABLET PO SCH (21:11)
[2019-01-29 04:00] VITALS: BP 155/72
[2019-01-29] MEDS: IV NS 0.9% 1,000 ML IV SCH (05:43)
--- NOTE | 2019-01-29 06:22 | NUR ---
MS RN NOTES AWAKE & RESPONSIVE. NOT IN ANY DISTRESS. NO SOB NOTED. DENIES ANY PAIN OR DISCOMFORT AT THIS TIME. WITH IV-HL PATENT & INTACT. AM CARE DONE. MONITORED ACCORDINGLY. CALL LIGHT WITHIN REACH. BED IN LOWEST POSITION. SR UP X 3 WITH BED ALARM ON FOR SAFETY. WILL ENDORSE TO NEXT SHIFT.
[2019-01-29 07:15] LABS: BASOPHILS % (AUTO) 0.2 % (0.0-2.0); EOSINOPHILS % (AUTO) 1.8 % (0.0-6.0); HEMATOCRIT 31 % (39-51); HEMOGLOBIN 10.8 g/dL (13.5-17.5); LYMPHOCYTES # (AUTO) 1.1 /CMM (0.8-4.8); LYMPHOCYTES % (AUTO) 12.1 % (20.0-44.0); MEAN CORPUSCULAR HGB CONC 35 g/dl (31.0-36.0); MEAN CORPUSCULAR VOLUME 81 fL (80-96); MONOCYTES # (AUTO) 0.6 /CMM (0.1-1.30); MONOCYTES % (AUTO) 6.2 % (2.0-12.0); NEUTROPHILS # (AUTO) 7.2 /CMM (1.8-8.9); NEUTROPHILS % (AUTO) 79.7 % (43.0-81.0); PLATELET COUNT (AUTO) 165 /CMM (150-450); RED BLOOD CELL COUNT(AUTO) 3.84 MIL/uL (4.5-6.0)
[2019-01-29 07:33] LABS: ALANINE AMINOTRANSFERASE 16 U/L (12-78); ALBUMIN 2.1 g/dL (3.4-5.0); ALKALINE PHOSPHATASE 70 U/L (46-116); ASPARTATE AMINOTRANSFERASE 11 U/L (15-37); BILIRUBIN,TOTAL 0.3 mg/dL (0.2-1.0); CALCIUM, SERUM 7.7 mg/dL (8.5-10.1); CARBON DIOXIDE 24 mmol/L (21-32); CHLORIDE 110 mmol/L (98-107); CREATININE 1.9 mg/dL (0.6-1.3); GLUCOSE 96 mg/dL (74-106); MAGNESIUM 1.6 mg/dL (1.8-2.4); PHOSPHORUS 2.5 mg/dL (2.5-4.9); POTASSIUM 3.2 mmol/L (3.5-5.1); SODIUM SERUM 144 mmol/L (136-145); TOTAL PROTEIN, SERUM 5.6 g/dL (6.4-8.2); UREA NITROGEN, BLOOD 34 mg/dL (7-18)
--- NOTE | 2019-01-29 07:40 | NUR ---
MS RN NOTES AWAKE & RESPONSIVE. NOT IN ANY DISTRESS. NO SOB NOTED. DENIES ANY PAIN OR DISCOMFORT AT THIS TIME. WITH IV-HL PATENT & INTACT DONE. MONITORED ACCORDINGLY. CALL LIGHT WITHIN REACH. BED LOCKED AND IN LOWEST POSITION ,BED ALARM ON FOR SAFETY. CALL LIGHT WITHIN REACH, WITH BAPTISTE CATH TO GRAVITY
[2019-01-29] MEDS: ALBUTEROL FS 2.5 MG/0.5 ML VIAL.NEB NEB SCH ×2 (07:47→19:34)
[2019-01-29 08:00] VITALS: BP 163/86
[2019-01-29] MEDS: TAMSULOSIN 0.4 MG CAP.SR.24H PO SCH (08:13)
[2019-01-29] MEDS: LACTOBACILLUS RHAMNOSUS GG 1 EACH CAP.SPRINK PO SCH ×2 (08:13→16:59)
[2019-01-29] MEDS: FLUTICASONE/VILANTEROL 1 EACH BLST.W.DEV IH SCH (08:13)
[2019-01-29] MEDS: CLOPIDOGREL BISULFATE 75 MG TABLET PO SCH (08:15)
[2019-01-29] MEDS: PANTOPRAZOLE 40 MG/PACK PACK PO SCH (08:15)
--- NOTE | 2019-01-29 08:25 | NUR ---
ms rn note c\o abdominal pain 6/10 on pain scale right lower side of abdomen tender to touch, Tylenol (650mg) given. will continue to monitor and will inform
[2019-01-29 08:32] LABS: IRON, SERUM 37 ug/dl (50-175); TOTAL IRON BINDING CAPACITY 143 ug/dl (250-450)
[2019-01-29 09:22] LABS: FERRITIN 590 ng/mL (8-388)
[2019-01-29] MEDS ORDERED: Magnesium 1GM/D5W 100ML PREMIX 100 ML IV SCH (10:47)
--- NOTE | 2019-01-29 11:32 | NUR ---
MS RN NOTE REPORTED TO DR CARABALLO THAT PATNA C\O ABDOMINALE PAIN ,TYLENOL WAS GIVEN EARLIER .ALSO OK TO DO SWALLOW VIDEO EVAL PER ST RECOMMENDATION , DR CARABALLO AWARE THAT STOOL VERY SOFT BUR NOT LOOSE STATED WILL SEE PATIENT SOON
[2019-01-29] MEDS ORDERED: POTASSIUM CHLORIDE 20 MEQ POWDER PACKET PO SCH (12:00)
--- NOTE | 2019-01-29 15:34 | NUR ---
MS RN NOTE ABLE TO AMBULATED WITH PT USING A WALKER WITH STAND BY ASSISTANCE
[2019-01-29 16:00] VITALS: BP 144/84
[2019-01-29] MEDS ORDERED: VANCOMYCIN 0.75 GM in IV D5W 250 ML IV SCH (16:00)
--- NOTE | 2019-01-29 18:59 | NUR ---
SUBSYSTEMS ENGINEER NOTE ALL NEEDS ATTENDED, FED BY CENTRIFUGE SEPARATOR TENDER, NOT IN DISTRESS AT THIS TIME , NO SOB NOTED ,CALL LIGHT WITHIN REACH
[2019-01-29 20:00] VITALS: BP 185/87
[2019-01-29 20:10] VITALS: BP 185/87
[2019-01-29] MEDS: LINEZOLID 600 MG TABLET PO SCH (21:25)
[2019-01-29] MEDS: SIMVASTATIN 40 MG TABLET PO SCH (21:25)
[2019-01-29] MEDS: ACETAMINOPHEN W/ CODEINE#3 1 EA TABLET PO PRN (21:26)
[2019-01-29] MEDS: LEVOFLOXACIN (250MG) 250 MG TABLET PO SCH (21:26)
[2019-01-30 04:00] VITALS: BP 140/65
[2019-01-30 04:17] VITALS: BP 140/80
[2019-01-30] MEDS: ACETAMINOPHEN W/ CODEINE#3 1 EA TABLET PO PRN ×2 (06:02→20:07)
--- NOTE | 2019-01-30 07:00 | NUR ---
MS RN INITIAL NOTES PATIENT SLEEPING BUT EASY TO AROUSE. ALERT AND ORIENTED X3. NOT IN ANY DISTRESS. NO SOB NOTED. DENIES ANY PAIN OR DISCOMFORT AT THIS TIME. WITH IV L HAND 20G AND R MIDLINE PATENT & INTACT. CALL LIGHT WITHIN REACH. BED LOCKED AND IN LOWEST POSITION, BED ALARM ON FOR SAFETY. CALL LIGHT WITHIN REACH, WITH BAPTISTE CATH TO GRAVITY. WILL MONITOR THROUGHOUT SHIFT.
[2019-01-30 07:12] LABS: BASOPHILS % (AUTO) 0.3 % (0.0-2.0); EOSINOPHILS % (AUTO) 1.7 % (0.0-6.0); HEMATOCRIT 37 % (39-51); HEMOGLOBIN 12.8 g/dL (13.5-17.5); LYMPHOCYTES # (AUTO) 1.6 /CMM (0.8-4.8); LYMPHOCYTES % (AUTO) 13.4 % (20.0-44.0); MEAN CORPUSCULAR HGB CONC 35 g/dl (31.0-36.0); MEAN CORPUSCULAR VOLUME 80 fL (80-96); MONOCYTES # (AUTO) 0.7 /CMM (0.1-1.30); MONOCYTES % (AUTO) 6.3 % (2.0-12.0); NEUTROPHILS # (AUTO) 9.2 /CMM (1.8-8.9); NEUTROPHILS % (AUTO) 78.3 % (43.0-81.0); PLATELET COUNT (AUTO) 173 /CMM (150-450); RED BLOOD CELL COUNT(AUTO) 4.58 MIL/uL (4.5-6.0); WHITE BLOOD COUNT (AUTO) 11.7 K/uL (4.3-11.0)
[2019-01-30 07:20] LABS: ALANINE AMINOTRANSFERASE 16 U/L (12-78); ALBUMIN 2.4 g/dL (3.4-5.0); ALKALINE PHOSPHATASE 79 U/L (46-116); ASPARTATE AMINOTRANSFERASE 19 U/L (15-37); BILIRUBIN,TOTAL 0.4 mg/dL (0.2-1.0); CALCIUM, SERUM 7.9 mg/dL (8.5-10.1); CARBON DIOXIDE 25 mmol/L (21-32); CHLORIDE 107 mmol/L (98-107); CREATININE 1.6 mg/dL (0.6-1.3); GLUCOSE 96 mg/dL (74-106); MAGNESIUM 1.5 mg/dL (1.8-2.4); PHOSPHORUS 2.4 mg/dL (2.5-4.9); POTASSIUM 3.5 mmol/L (3.5-5.1); SODIUM SERUM 142 mmol/L (136-145); TOTAL PROTEIN, SERUM 6.2 g/dL (6.4-8.2); UREA NITROGEN, BLOOD 22 mg/dL (7-18)
[2019-01-30] MEDS: ALBUTEROL FS 2.5 MG/0.5 ML VIAL.NEB NEB SCH ×2 (07:38→19:31)
[2019-01-30 08:00] VITALS: BP 160/87
[2019-01-30] MEDS: TAMSULOSIN 0.4 MG CAP.SR.24H PO SCH (08:36)
[2019-01-30] MEDS: PANTOPRAZOLE 40 MG/PACK PACK PO SCH (08:36)
[2019-01-30] MEDS: LACTOBACILLUS RHAMNOSUS GG 1 EACH CAP.SPRINK PO SCH ×2 (08:36→17:39)
[2019-01-30] MEDS: CLOPIDOGREL BISULFATE 75 MG TABLET PO SCH (08:36)
[2019-01-30] MEDS: LINEZOLID 600 MG TABLET PO SCH ×2 (08:36→20:07)
[2019-01-30] MEDS: NYSTATIN TOP POWDER 15 GM BOTTLE TP SCH ×2 (08:37→17:01)
[2019-01-30] MEDS: FLUTICASONE/VILANTEROL 1 EACH BLST.W.DEV IH SCH (08:56)
--- NOTE | 2019-01-30 10:00 | NUR ---
MS RN NOTES PATIENT LEFT THE UNIT WITH RADIOLOGY FOR VIDEO SWALLOW EVAL.
[2019-01-30] MEDS ORDERED: Magnesium 1GM/D5W 100ML PREMIX 100 ML IV SCH (12:00)
[2019-01-30] MEDS ORDERED: BARIUM SULFATE 148 GM SUSP.RECON PO ONE (12:56)
[2019-01-30] MEDS ORDERED: BARIUM SULFATE 240 ML ORAL.SUSP PO ONE (12:56)
[2019-01-30] MEDS ORDERED: NEUTRA PHOS 1 POWD.PACKET NG ONE (13:30)
[2019-01-30 16:00] VITALS: BP 151/68
--- NOTE | 2019-01-30 19:30 | NUR ---
MS RN NOTES PATIENT A&OX3, BUT WOULD LIKE HIS NEPHEW, MIRIAM BALDERAS, TO SIGN THE NAVEED CONSENT. CALLED NEPHEW FOR CONSENT, STATED HE WOULD LIKE MORE CLARIFICATION BEFORE SIGNING THE CONSENT. MADE AWARE AND STATED HE WILL CONTACT THE NEPHEW.
--- NOTE | 2019-01-30 19:45 | NUR ---
MS RN CLOSING NOTES PATIENT RESTING IN BED. ALERT AND ORIENTED X3. ON 2L NC, TOLERATING WELL. NOT IN ANY DISTRESS. NO SOB NOTED. DENIES ANY PAIN OR DISCOMFORT AT THIS TIME. WITH IV L HAND 20G AND R MIDLINE, KEPT CLEAN, DRY, AND INTACT. SAFETY MEASURES WERE IN PLACE THROUGHOUT SHIFT. ALL MD ORDERS ATTENDED. ALL NEEDS MET. NO ACUTE CHANGES THROUGHOUT SHIFT. ENDORSED TO BLENDING COORDINATOR NURSE FOR ROBINSON.
[2019-01-30] MEDS: LEVOFLOXACIN (250MG) 250 MG TABLET PO SCH (20:07)
--- NOTE | 2019-01-30 20:33 | NUR ---
MS RN NOTES RECEIVED PATIENT AWAKE IN BED AND WATCHING TV. NO DISTRESS NOTED. CALL LIGHT WITHIN REACH. PERIPHERAL LINE INTACT AND PATENT. PRN TYLENOL #3 1 TAB GIVEN FOR C/O GENERALIZED BODY PAIN. WILL CONTINUE TO MONITOR FOR EFFECTIVENESS. BED IN LOW LOCK SETTING . ROOM FREE OF CLUTTER AND ALL BELONGINGS KEPT NEAR BEDSIDE. WILL CONTINUE TO MONITOR
[2019-01-30 20:48] VITALS: BP 121/72
[2019-01-30] MEDS: SIMVASTATIN 40 MG TABLET PO SCH (22:08)
[2019-01-31] MEDS: ACETAMINOPHEN W/ CODEINE#3 1 EA TABLET PO PRN (02:09)
[2019-01-31 04:57] VITALS: BP 140/81
--- NOTE | 2019-01-31 06:39 | NUR ---
MS RN NOTES PATIENT ASLEEP IN BED WITH NO DISTRESS NOTED. CALL LIGHT WITHIN REACH. PERIPHERAL LINE INTACT AND PATENT. ALL DUE MEDS GIVEN ORDERED WITH NO ASE NOTED. NO FURTHER C/O PAIN OR DISCOMFORT. FC INTACT AND PATENT AND DRAINED 850ML YELLOW CLEAR URINE. ABDOMEN SOFT AND NON DISTENDED. DVT PUMPS TO BLE INTACT AND FUNCTIONING PROPERLY. BED IN LOW LOCK SETTING. ROOM FREE OF CLUTTER AND ALL BELONGINGS KEPT NEAR BEDSIDE. WILL CONTINUE ENDORSE TO ONCOMING SHIFT.
--- NOTE | 2019-01-31 07:20 | NUR ---
RN OPENING NOTES PT AWAKE AND RESTING IN BED. NO COMPLAINTS OF PAIN, SOB OR DISTRESS. PT IS ON 2L O2 VIA NASAL CANNULA SATING WELL. PT HAS BAPTISTE CATHETER IN PLACE, INTACT, AND DRAINING WELL. PT HAS A LEFT HAND #20, AND RIGHT UPPER ARM MIDLINE BOTH INTACT AND PATENT. SAFETY PRECAUTIONS IN PLACE, BED IN LOWEST LOCKED POSITION, X2 SIDE RAILS UP AND CALL LIGHT WITHIN REACH. WILL CONTINUE TO MONITOR.
[2019-01-31] MEDS: ALBUTEROL FS 2.5 MG/0.5 ML VIAL.NEB NEB SCH ×2 (07:40→19:33)
[2019-01-31 08:00] VITALS: BP 119/76
[2019-01-31] MEDS: PANTOPRAZOLE 40 MG/PACK PACK PO SCH (08:29)
[2019-01-31] MEDS: CLOPIDOGREL BISULFATE 75 MG TABLET PO SCH (08:29)
[2019-01-31] MEDS: LINEZOLID 600 MG TABLET PO SCH (08:29)
[2019-01-31] MEDS: LACTOBACILLUS RHAMNOSUS GG 1 EACH CAP.SPRINK PO SCH ×2 (08:29→17:27)
[2019-01-31] MEDS: FLUTICASONE/VILANTEROL 1 EACH BLST.W.DEV IH SCH (08:29)
[2019-01-31] MEDS: TAMSULOSIN 0.4 MG CAP.SR.24H PO SCH (08:29)
--- NOTE | 2019-01-31 09:00 | NUR ---
RN NOTES PT SCHEDULED MYCOSTATIN UNABLE TO BE FOUND AT BEDSIDE OR IN PATIENT'S CASSETTE. CALLED PHARMACY TO BRING TO UNIT. WILL CONTINUE TO FOLLOW UP.
--- NOTE | 2019-01-31 10:24 | NUR ---
RN NOTES CALLED LAB FOR AM LAB RESULTS. FIRST ATTEMPT AT LAB DRAW UNABLE TO DRAW FROM MIDLINE. PER LAB, 2ND DRAWN HAS JUST BEEN DONE. WILL AWAIT LAB RESULTS.
[2019-01-31] MEDS: NYSTATIN TOP POWDER 15 GM BOTTLE TP SCH ×2 (10:40→17:33)
--- NOTE | 2019-01-31 11:52 | NUR ---
RN NOTES 2ND CALL TO LAB. AWAITING 2ND BLOOD DRAW. WILL CONTINUE TO FOLLOW UP.
[2019-01-31 12:11] LABS: BASOPHILS # (AUTO) 0.1 /CMM (0.0-0.2); BASOPHILS % (AUTO) 0.7 % (0.0-2.0); EOSINOPHILS % (AUTO) 1.8 % (0.0-6.0); HEMATOCRIT 38 % (39-51); HEMOGLOBIN 12.9 g/dL (13.5-17.5); LYMPHOCYTES # (AUTO) 1.4 /CMM (0.8-4.8); LYMPHOCYTES % (AUTO) 11.2 % (20.0-44.0); MEAN CORPUSCULAR HGB CONC 34 g/dl (31.0-36.0); MEAN CORPUSCULAR VOLUME 80 fL (80-96); MONOCYTES # (AUTO) 0.7 /CMM (0.1-1.30); MONOCYTES % (AUTO) 5.9 % (2.0-12.0); NEUTROPHILS # (AUTO) 10.1 /CMM (1.8-8.9); NEUTROPHILS % (AUTO) 80.4 % (43.0-81.0); PLATELET COUNT (AUTO) 160 /CMM (150-450); RED BLOOD CELL COUNT(AUTO) 4.68 MIL/uL (4.5-6.0); WHITE BLOOD COUNT (AUTO) 12.5 K/uL (4.3-11.0)
[2019-01-31 12:26] LABS: ALANINE AMINOTRANSFERASE 16 U/L (12-78); ALBUMIN 2.5 g/dL (3.4-5.0); ALKALINE PHOSPHATASE 80 U/L (46-116); ASPARTATE AMINOTRANSFERASE 15 U/L (15-37); BILIRUBIN,TOTAL 0.3 mg/dL (0.2-1.0); CALCIUM, SERUM 8.1 mg/dL (8.5-10.1); CARBON DIOXIDE 26 mmol/L (21-32); CHLORIDE 105 mmol/L (98-107); CREATININE 1.5 mg/dL (0.6-1.3); GLUCOSE 111 mg/dL (74-106); MAGNESIUM 1.5 mg/dL (1.8-2.4); PHOSPHORUS 2.8 mg/dL (2.5-4.9); POTASSIUM 3.4 mmol/L (3.5-5.1); SODIUM SERUM 142 mmol/L (136-145); TOTAL PROTEIN, SERUM 6.2 g/dL (6.4-8.2); UREA NITROGEN, BLOOD 18 mg/dL (7-18)
[2019-01-31 16:00] VITALS: BP 148/74
--- NOTE | 2019-01-31 18:49 | NUR ---
RN CLOSING NOTES PT AWAKE AND RESTING IN BED. NO COMPLAINTS OF PAIN, SOB OR DISTRESS DURING SHIFT. PT IS ON 2L O2 VIA NASAL CANNULA SATING WELL. PT HAS BAPTISTE CATHETER IN PLACE, INTACT, AND DRAINING WELL. PT HAS A LEFT HAND #20, AND RIGHT UPPER ARM MIDLINE BOTH INTACT AND PATENT. ALL PATIENT NEEDS MET DURING SHIFT. PT SIGNED CONSENT FOR NAVEED SCHEDULED FOR SATURDAY. SAFETY PRECAUTIONS IN PLACE, BED IN LOWEST LOCKED POSITION, X2 SIDE RAILS UP AND CALL LIGHT WITHIN REACH. WILL ENDORSE TO PHARMACEUTICAL LABORATORY TECHNICIAN NURSE FOR CONTINUITY OF CARE.
[2019-01-31] MEDS: LEVOFLOXACIN (250MG) 250 MG TABLET PO SCH (19:59)
[2019-01-31 20:00] VITALS: BP 134/83
[2019-01-31] MEDS: LINEZOLID RTU BAG 600 MG in PREMIX 1 EA IV SCH (21:01)
[2019-01-31] MEDS: SIMVASTATIN 40 MG TABLET PO SCH (21:01)
[2019-02-01 05:18] VITALS: BP 138/70
--- NOTE | 2019-02-01 06:00 | NUR ---
pt slept well after bedbath given last night, had x2 loose bm, denies any pain or discomfort, no significant changes overnight, vss,afebrile, kept clean and dry ,will continue to monitor.
--- NOTE | 2019-02-01 07:30 | NUR ---
RN NOTES RECEIVED PATIENT ASLEEP BUT EASY TO AROUSE. ALERT AND ORIENTED X3. ABLE TO MAKE NEEDS KNOWN. BREATHING EVEN AND UNLABORED. NO SOB NOTED. DENIES ANY PAIN OR DISCOMFORT AT THIS TIME. WITH IV L HAND 20G AND R MIDLINE BOTH IN PLACE AND INTACT PATENT ON FLUSHING. BAPTISTE CATHETER DRAINING WELL VIA GRAVITY TO MARILU URINE. SAFETY MEASURES OBSERVED AND MAINTAINED. CALL LIGHT PLACED WITHIN REACH. BED LOCKED AND IN LOWEST POSITION, BED ALARM ON FOR SAFETY. WILL MONITOR THROUGHOUT SHIFT.
[2019-02-01 07:35] LABS: BASOPHILS % (AUTO) 0.3 % (0.0-2.0); EOSINOPHILS % (AUTO) 2.1 % (0.0-6.0); HEMATOCRIT 37 % (39-51); HEMOGLOBIN 12.2 g/dL (13.5-17.5); LYMPHOCYTES # (AUTO) 1.9 /CMM (0.8-4.8); LYMPHOCYTES % (AUTO) 14.1 % (20.0-44.0); MEAN CORPUSCULAR HGB CONC 33 g/dl (31.0-36.0); MEAN CORPUSCULAR VOLUME 82 fL (80-96); MONOCYTES # (AUTO) 0.7 /CMM (0.1-1.30); MONOCYTES % (AUTO) 5.2 % (2.0-12.0); NEUTROPHILS # (AUTO) 10.4 /CMM (1.8-8.9); NEUTROPHILS % (AUTO) 78.3 % (43.0-81.0); PLATELET COUNT (AUTO) 159 /CMM (150-450); RED BLOOD CELL COUNT(AUTO) 4.48 MIL/uL (4.5-6.0); WHITE BLOOD COUNT (AUTO) 13.3 K/uL (4.3-11.0)
[2019-02-01 07:51] LABS: CALCIUM, SERUM 8.1 mg/dL (8.5-10.1); CARBON DIOXIDE 27 mmol/L (21-32); CHLORIDE 106 mmol/L (98-107); CREATININE 1.4 mg/dL (0.6-1.3); GLUCOSE 94 mg/dL (74-106); POTASSIUM 3.4 mmol/L (3.5-5.1); SODIUM SERUM 141 mmol/L (136-145); UREA NITROGEN, BLOOD 14 mg/dL (7-18)
[2019-02-01 08:00] VITALS: BP 125/70
[2019-02-01] MEDS: ALBUTEROL FS 2.5 MG/0.5 ML VIAL.NEB NEB SCH ×2 (08:09→19:41)
[2019-02-01] MEDS: TAMSULOSIN 0.4 MG CAP.SR.24H PO SCH (08:29)
[2019-02-01] MEDS: FLUTICASONE/VILANTEROL 1 EACH BLST.W.DEV IH SCH (08:29)
[2019-02-01] MEDS: PANTOPRAZOLE 40 MG/PACK PACK PO SCH (08:29)
[2019-02-01] MEDS: CLOPIDOGREL BISULFATE 75 MG TABLET PO SCH (08:29)
[2019-02-01] MEDS: LACTOBACILLUS RHAMNOSUS GG 1 EACH CAP.SPRINK PO SCH ×2 (08:29→18:13)
[2019-02-01] MEDS: LINEZOLID RTU BAG 600 MG in PREMIX 1 EA IV SCH ×2 (08:29→20:34)
[2019-02-01] MEDS: NYSTATIN TOP POWDER 15 GM BOTTLE TP SCH ×2 (08:45→18:14)
[2019-02-01 09:00] LABS: EOSINOPHILS % (MANUAL) 3 % (0-4); LYMPHOCYTES % (MANUAL) 18 % (16-48); MONOCYTES % (MANUAL) 8 % (0-11.0); NEUTROPHILS % (MANUAL) 71 (42-76)
[2019-02-01] MEDS ORDERED: POTASSIUM CHLORIDE 20 MEQ POWDER PACKET PO SCH (10:00)
[2019-02-01] MEDS ORDERED: DIPHENOXYLATE HCL/ATROP SULF 5 ML UDC PO PRN (12:00)
--- NOTE | 2019-02-01 12:37 | NUR ---
CONFIRMED WITH NURSING SUP ELLIE PT. SCHEDULE FOR NAVEED TMRW IN ICU AT 08 AM WITH ANAESTHESIA.CONSENT SIGNED.DR. MARILU CUELLAR MADE AWARE.
[2019-02-01 16:00] VITALS: BP 130/78
[2019-02-01] MEDS: DIPHENOXYLATE HCL/ATROP SULF 1 UDTAB TABLET PO PRN (18:11)
[2019-02-01] MEDS: ACETAMINOPHEN W/ CODEINE#3 1 EA TABLET PO PRN (18:13)
--- NOTE | 2019-02-01 19:24 | NUR ---
RN NOTES ENDORSED PATIENT FOR CONTINUITY OF CARE. NO ACUTE CHANGES WITHIN THE SHIFT. PATIENT NOT ON ANY FORM OF DISTRESS. ALL NURSING NEED ATTENDED AND MET. KEPT SAFETY MEASURES AND ASPIRATION PRECAUTIONS IN PLACE AT ALL TIMES. CALL LIGHT WITHIN REACH ENDORSED TO INCOMING SHIFT REGARDING COLLECTION OF STOOL FOR C. DIFF TOXIN.
--- NOTE | 2019-02-01 20:00 | NUR ---
RN NOTES, RECEIVED PATIENT AWAKE, ALERT ORIENTED X3, ABLE TO MAKE VERBALIZE NEEDS, BREATHING EVEN AND UNLABORED, NO SOB/ACUTE DISTRESS NOTED AT THIS TIME, DENIES PAIN OR DISCOMFORT AT THIS TIME, WITH IV ACCESS IN L HAND 20G AND ALFREDO MIDLINE BOTH PATENT AND INTACT, BAPTISTE CATHETER DRAINING WELL YELLOW COLOR URINE, PATENCY INTACT, FAMILY AT BEDSIDE, ALL NEEDS PROVIDED, CALL LIGHT WITHIN REACH, BED LOCKED AND IN LOWEST POSITION, BED ALARM ON FOR SAFETY, WILL CONTINUE TO MONITOR PATIENT CLOSELY.
[2019-02-01] MEDS: METRONIDAZOLE 500 MG TABLET PO SCH (20:32)
[2019-02-01] MEDS: LEVOFLOXACIN (250MG) 250 MG TABLET PO SCH (20:32)
[2019-02-01 21:07] VITALS: BP_SYST 135; BP_SYST 147; BP_DIAS 80; BP_DIAS 85
[2019-02-01] MEDS: SIMVASTATIN 40 MG TABLET PO SCH (21:49)
[2019-02-02] VITALS (8 sets, daily range): BP systolic 104–149; BP diastolic 63–80
[2019-02-02] MEDS: METRONIDAZOLE 500 MG TABLET PO SCH ×3 (05:00→12:30)
[2019-02-02 06:29] LABS: CALCIUM, SERUM 7.8 mg/dL (8.5-10.1); CARBON DIOXIDE 24 mmol/L (21-32); CHLORIDE 106 mmol/L (98-107); CREATININE 1.4 mg/dL (0.6-1.3); GLUCOSE 88 mg/dL (74-106); MAGNESIUM 1.3 mg/dL (1.8-2.4); POTASSIUM 3.7 mmol/L (3.5-5.1); SODIUM SERUM 141 mmol/L (136-145); UREA NITROGEN, BLOOD 14 mg/dL (7-18)
[2019-02-02 06:32] LABS: BASOPHILS % (AUTO) 0.2 % (0.0-2.0); EOSINOPHILS % (AUTO) 1.5 % (0.0-6.0); HEMATOCRIT 35 % (39-51); HEMOGLOBIN 11.9 g/dL (13.5-17.5); LYMPHOCYTES # (AUTO) 2.4 /CMM (0.8-4.8); LYMPHOCYTES % (AUTO) 18.2 % (20.0-44.0); MEAN CORPUSCULAR HGB CONC 34 g/dl (31.0-36.0); MEAN CORPUSCULAR VOLUME 82 fL (80-96); MONOCYTES # (AUTO) 0.8 /CMM (0.1-1.30); MONOCYTES % (AUTO) 6.4 % (2.0-12.0); NEUTROPHILS # (AUTO) 9.7 /CMM (1.8-8.9); NEUTROPHILS % (AUTO) 73.7 % (43.0-81.0); PLATELET COUNT (AUTO) 144 /CMM (150-450); WHITE BLOOD COUNT (AUTO) 13.2 K/uL (4.3-11.0)
--- NOTE | 2019-02-02 06:53 | NUR ---
RN NOTES, PATIENT IN BED AWAKE A/O X3 ABLE TO VERBALIZED NEEDS, NO SIGNIFICANT CHANGE IN CONDITION DURING THE NIGHT, NPO SINCE MIDNIGHT FOR NAVEED PROCEDURE THIS MORNING, PATIENT WILL BE TRANSFER TO ICU PER PROCEDURE PROTOCOL, WILL ENDORSE PATIENT FOR CONTINUITY OF CARE TO ONCOMING NURSE.
--- NOTE | 2019-02-02 07:10 | NUR ---
BLASTING CAP ASSEMBLER OPENING NOTE RELIEVED PT IN BED, SEMI FOWLERS, RESTING WITH EYES CLOSED AND EASILY AROUSABLE TO VERBAL AND TACTILE STIMULI. NO ACUTE DISTRESS NOTED AT THIS TIME, BREATHING IS EVEN AND UNLABORED ON 2L NC. PT ON GRINDER CHIPPER WITH SINUS RHYTHM, HR 80 AT THIS TIME. RIGHT UPPER ARM MIDLINE IS PATENT, CLEAN, DRY AND INTACT. NPO STATUS MAINTAINED FOR NAVEED IN ICU TODAY AT 0800. CONSENTS SIGNED AND PLACED IN CHART. ASPIRATION PRECAUTIONS MAINTAINED. ALL NEEDS ATTENDED TO. BED IS LOCKED AND IN LOWEST POSITION, SIDE RAILS UP X2, BED ALARM ON, CALL LIGHT AND POSSESSION WITHIN REACH.
--- NOTE | 2019-02-02 07:49 | NUR ---
MILL AND COAL TRANSPORT OPERATOR PT OFF UNIT PT TRANSFERRED TO ICU BY CHARGE NURSE SOON FOR PROCEDURE.
[2019-02-02 08:05] LABS: BAND % (MANUAL) 3 % (0.0-5.0); EOSINOPHILS % (MANUAL) 2 % (0-4); LYMPHOCYTES % (MANUAL) 23 % (16-48); METAMYELOCYTES % 2 % (0-0); MONOCYTES % (MANUAL) 7 % (0-11.0); NEUTROPHILS % (MANUAL) 63 (42-76)
[2019-02-02] MEDS: ALBUTEROL FS 2.5 MG/0.5 ML VIAL.NEB NEB SCH (08:43)
--- NOTE | 2019-02-02 08:45 | NUR ---
PSYCHIATRY RESIDENT NOTES 0815 PT HERE FOR NAVEED UNDER DR MCNEILL. PT AWAKE, A/OX4. PT CONNECTED TO MONITOR. 02 VIA NC AT 2LPM. NO SOB NOTED. DENIES ANY PAIN. IV LINE PATENT AND INTACT. [address] MCNEILL. ANESTHESIOLOGIST ADMINISTERED SEDATION. PT CONNECTED TO MONITOR. VITAL SIGNS STABLE. TOLERATED PROCEDURE WELL. Addendum: 02/02/19 at 0900 by BRYAN SOLO RN 0835 PT AWAKE, A/OX4. NO SOB NOTED. DENIES ANY PAIN. VITAL SIGNS FOLLOWS: PARUL 118/66, HR 81, RR 26, 02 SAT 97%.
[2019-02-02] MEDS: TAMSULOSIN 0.4 MG CAP.SR.24H PO SCH (09:00)
[2019-02-02] MEDS: LINEZOLID RTU BAG 600 MG in PREMIX 1 EA IV SCH (09:00)
[2019-02-02] MEDS: NYSTATIN TOP POWDER 15 GM BOTTLE TP SCH (09:00)
[2019-02-02] MEDS: PANTOPRAZOLE 40 MG/PACK PACK PO SCH (09:00)
[2019-02-02] MEDS: FLUTICASONE/VILANTEROL 1 EACH BLST.W.DEV IH SCH (09:00)
[2019-02-02] MEDS: LACTOBACILLUS RHAMNOSUS GG 1 EACH CAP.SPRINK PO SCH (09:00)
--- NOTE | 2019-02-02 09:53 | NUR ---
TELE PT BACK ON UNIT PT BACK ON UNIT FROM NAVEED PROCEDURE. VS OBTAINED AND STABLE. PT DENIES CHEST PAIN, SOB, BREATHING IS EVEN AND UNLABORED ON 4L NC. PT REQUESTING TRAY AND SOMETHING TO DRINK.
[2019-02-02] MEDS: CLOPIDOGREL BISULFATE 75 MG TABLET PO SCH (09:58)
--- NOTE | 2019-02-02 11:04 | NUR ---
ENERGY CONSERVATION REPRESENTATIVE NOTE CONTACTED REGARDING WOUND ON THE RIGHT BUTTOCK. AWAITING RESPONSE.
[2019-02-02] MEDS: Magnesium 1GM/D5W 100ML PREMIX 100 ML IV SCH ×2 (11:14→12:28)
--- NOTE | 2019-02-02 11:15 | NUR ---
STORE CLERK CHECKER NOTE AWARE OF WOUND, NO NEW ORDERS OBTAINED.
[2019-02-02] MEDS: DIPHENOXYLATE HCL/ATROP SULF 1 UDTAB TABLET PO PRN (11:42)
[2019-02-02] MEDS ORDERED: Z GUARD REMEDY 2 OZ OINT TP SCH (12:00)
--- NOTE | 2019-02-02 12:59 | NUR ---
PHARMACY INTAKE COORDINATOR NOTE BAPTISTE D/C WITH CATHETER TIP INTACT. 225ML OF CLEAR, YELLOW URINE PRESENT IN BAG. GOOD FABY CARE PROVIDED AND PT PLACED IN CLEAN DIAPER. VOIDING TRIAL INITIATED.
--- NOTE | 2019-02-02 15:48 | NUR ---
REFRACTORY REPAIRER NOTE INFORMED SOON THAT PT HAS NOT YET VOIDING. PER SOON SHE WILL INFORM CM.
--- NOTE | 2019-02-02 16:32 | NUR ---
INSTRUCTIONAL DESIGN TECHNOLOGIST PT DISCHARGED PT DISCHARGED TO [facility] IN MEDICALLY STABLE CONDITION. PT IS ALERT AND ORIENTED X4. DENIES CHEST PAIN, SOB, N/V. BREATHING IS EVEN AND UNLABORED ON 2LNC. NO ACUTE DISTRESS NOTED AT THIS TIME. RIGHT UPPER ARM MIDLINE AND LEFT HAND PERIPHERAL IV REMOVED WITH CATHETER TIP INTACT. ADLS AND WOUND CARE PROVIDED PRIOR TO D/C. PT TURNED AND REPOSITIONED Q2H FOR THE DURATION OF THE SHIFT. WOUND DOCUMENTATION COMPLETE PER PROTOCOL. BAPTISTE CATHETER REMOVED AT 1300 AND PT VOIDED @ 1600 INTO DIAPER. REPORT GIVEN TO RADHA SIMS FOR CONTINUITY OF CARE. DISCUSSED DISCHARGE PAPERWORK AND EDUCATION PER PROTOCOL, INCLUDING TO CONTINUE ZYVOX PO 600MG Q12H AND FLAGYL 500MG PO Q8H X7 DAYS. INFORMED OF SKIN ASSESSMENT DONE AND THAT IS AWARE OF PT WOUND OF THE RIGHT BUTTOCK. REPORT GIVEN TO AMBULANCE STAFF FOR TRANSFER OF CARE.
[2019-02-02] MEDS ORDERED: LINEZOLID 600 MG TABLET PO SCH (21:00)
== END 2019-02-02 16:30 | DRG 871 ==
LOC: ER 22:12 → TELE-TD 01-26 00:06 → TELE1 01-27 12:04 → MEDSG1 01-28 10:12 → TELE1 02-01 23:01 → ICU 02-02 08:01 → TELE1 02-02 08:57 → ICU 02-02 09:00 → TELE1 02-02 09:34
PROVIDERS: ADMIT Registered Nurse; ATTEND Nurse Practitioner Acute Care
PROC: 05H533Z Insertion of Infusion Device into Right Subclavian Vein, Percutaneous Approach (ICD-10-PCS; principal; 2019-01-27)
PROC: B546ZZA Ultrasonography of Right Subclavian Vein, Guidance (ICD-10-PCS; 2019-01-27)
PROC: B246ZZ4 Ultrasonography of Right and Left Heart, Transesophageal (ICD-10-PCS; 2019-02-02)
DX: A41.9 Sepsis, unspecified organism (principal); N17.0 Acute kidney failure with tubular necrosis; G92 Toxic encephalopathy; J15.9 Unspecified bacterial pneumonia; I13.0 Hypertensive heart and chronic kidney disease with heart failure and stage 1 through stage 4 chronic kidney disease, or unspecified chronic kidney disease; J44.0 Chronic obstructive pulmonary disease with (acute) lower respiratory infection; E87.2 Acidosis; E87.5 Hyperkalemia; E86.0 Dehydration; W18.30XA Fall on same level, unspecified, initial encounter; Y92.009 Unspecified place in unspecified non-institutional (private) residence as the place of occurrence of the external cause; L98.9 Disorder of the skin and subcutaneous tissue, unspecified; R62.7 Adult failure to thrive; Z68.20 Body mass index [BMI] 20.0-20.9, adult; N40.0 Benign prostatic hyperplasia without lower urinary tract symptoms; K21.9 Gastro-esophageal reflux disease without esophagitis; Z86.718 Personal history of other venous thrombosis and embolism; Z86.711 Personal history of pulmonary embolism; Z86.73 Personal history of transient ischemic attack (TIA), and cerebral infarction without residual deficits; I50.9 Heart failure, unspecified; N18.9 Chronic kidney disease, unspecified; L30.4 Erythema intertrigo; B95.2 Enterococcus as the cause of diseases classified elsewhere; R65.20 Severe sepsis without septic shock; E78.5 Hyperlipidemia, unspecified; E83.42 Hypomagnesemia; E87.6 Hypokalemia; F17.200 Nicotine dependence, unspecified, uncomplicated; Z79.02 Long term (current) use of antithrombotics/antiplatelets; Z79.51 Long term (current) use of inhaled steroids; S31.809A Unspecified open wound of unspecified buttock, initial encounter
CPT/HCPCS: 36415; 36569; 70450-TC; 71045-TC; 74230-TC; 76770-TC; 80048-TC; 80053-TC; 80061-TC; 80076-TC; 80202-TC; 81000-TC; 82272-TC; 82728-TC; 82962-TC; 83540-TC; 83605-TC; 83735-TC; 84100-TC; 84443-TC; 84484-TC; 85025-TC; 85730-TC; 87040-TC; 87081-TC; 87086-TC; 87186-TC; 92526; 92611-TC; 93307-TC; 93312-TC; 93880-TC; 94799-TC; 97110-TC; 97116-TC; 97530-TC; A4216; G0378; J0692; J2020; J2270; J2405; J2543; J2704; J3370; J3475; J3490; J7030; J7040; J7050; J7060

== ENCOUNTER 2019-07-20 17:56 | Inpatient (IN) | payer MEDICARE, OTHER ==
[~2019-07-20] VITALS: Ht 160 cm; Wt 69.4 kg
--- NOTE | 2019-07-20 18:05 | NUR ---
"sent from urgent care for chest pain and shortness of breath" PT AWAKE, ALERT, PT ON MONITOR, VSS, NAD NOTED, PENDING MD CARMICHAEL
[2019-07-20] MEDS ORDERED: ONDANSETRON HCL/PF 4 MG/2 ML VIAL ONE (18:30)
[2019-07-20] MEDS ORDERED: MORPHINE SULFATE INJ 2 MG/ML DISP.SYRIN IV ONE (18:30)
[2019-07-20] MEDS ORDERED: ONDANSETRON HCL/PF 4 MG/2 ML VIAL IVP ONE (18:30)
[2019-07-20] MEDS ORDERED: MORPHINE SULFATE INJ 4 MG/ML DISP.SYRIN ONE (18:30)
[2019-07-20 18:40] LABS: BASOPHILS # (AUTO) 0.1 /CMM (0.0-0.2); EOSINOPHILS % (AUTO) 6.1 % (0.0-6.0); HEMATOCRIT 40 % (39-51); HEMOGLOBIN 13.4 g/dL (13.5-17.5); LYMPHOCYTES # (AUTO) 1.6 /CMM (0.8-4.8); LYMPHOCYTES % (AUTO) 18.4 % (20.0-44.0); MEAN CORPUSCULAR HGB CONC 33 g/dl (31.0-36.0); MEAN CORPUSCULAR VOLUME 83 fL (80-96); MONOCYTES # (AUTO) 0.7 /CMM (0.1-1.30); MONOCYTES % (AUTO) 8.1 % (2.0-12.0); NEUTROPHILS # (AUTO) 5.9 /CMM (1.8-8.9); NEUTROPHILS % (AUTO) 66.4 % (43.0-81.0); PLATELET COUNT (AUTO) 218 /CMM (150-450); RED BLOOD CELL COUNT(AUTO) 4.83 MIL/uL (4.5-6.0); WHITE BLOOD COUNT (AUTO) 8.9 K/uL (4.3-11.0)
[2019-07-20 18:47] LABS: CALCIUM, SERUM 8.7 mg/dL (8.5-10.1); CARBON DIOXIDE 27 mmol/L (21-32); CHLORIDE 103 mmol/L (98-107); CREATININE 1.4 mg/dL (0.6-1.3); GLUCOSE 93 mg/dL (74-106); POTASSIUM 4.2 mmol/L (3.5-5.1); SODIUM SERUM 139 mmol/L (136-145); UREA NITROGEN, BLOOD 20 mg/dL (7-18)
[2019-07-20 18:59] LABS: ALANINE AMINOTRANSFERASE 14 U/L (12-78); ALBUMIN 3.4 g/dL (3.4-5.0); ALKALINE PHOSPHATASE 75 U/L (46-116); ASPARTATE AMINOTRANSFERASE 17 U/L (15-37); B-TYPE NATRIURETIC PEPTIDE 240 PG/ML (0-125); BILIRUBIN,DIRECT 0.1 mg/dL (0.0-0.2); BILIRUBIN,TOTAL 0.3 mg/dL (0.2-1.0); TOTAL PROTEIN, SERUM 7.3 g/dL (6.4-8.2)
[2019-07-20 19:14] LABS: BAND % (MANUAL) 3 % (0.0-5.0); EOSINOPHILS % (MANUAL) 8 % (0-4); LYMPHOCYTES % (MANUAL) 14 % (16-48); MONOCYTES % (MANUAL) 15 % (0-11.0); NEUTROPHILS % (MANUAL) 59 (42-76)
--- NOTE | 2019-07-20 20:29 | NUR ---
BED ASSIGNMENT 311-1
--- NOTE | 2019-07-20 21:13 | NUR ---
REPORT GIVEN TO SONAL GARCIA FOR ROBINSON PT WILL BE TRANSPORTED TO 3RD FLOOR VIA [facility]
[2019-07-20] MEDS ORDERED: NITROGLYCERIN 0.4 MG/TAB BOTTLE SL PRN (21:30)
[2019-07-20] MEDS ORDERED: MAG HYDROX/AL HYDROX/SIMETH 30 ML UDC PO PRN (21:30)
[2019-07-20] MEDS ORDERED: DOCUSATE SODIUM 100 MG CAPSULE PO PRN (21:30)
[2019-07-20] MEDS ORDERED: ACETAMINOPHEN 325 MG TABLET PO PRN (21:30)
[2019-07-20] MEDS ORDERED: ONDANSETRON HCL/PF 4 MG/2 ML VIAL IVP PRN (21:30)
[2019-07-20] MEDS ORDERED: MORPHINE SULFATE INJ 2 MG/ML DISP.SYRIN IV PRN (21:30)
[2019-07-20] MEDS: SIMVASTATIN 20 MG TABLET PO SCH (22:15)
--- NOTE | 2019-07-20 22:15 | NUR ---
RN MS OPENING NOTES RECEIVED PT FROM ER VIA HEIDI, ABLE TO AMBULATE TO BED WITH ASSISTIVE DEVICE. AWAKE ALERT ORIENTED X3-4, BREATHING EVEN AND UNLABORED ON 2L O2 VIA NC. COMPLAINT OF PAIN ON BOTH LBE. IV ACCESS ON THE L FA 20G SL. BED IN LOWEST LOCKED POSITION, CALL LIGHT WITHIN REACH AT ALL TIMES. WILL CONTINUE TO MONITOR FREQUENTLY
[2019-07-20 22:30] VITALS: BP 116/74
[2019-07-21] VITALS: BP 110/62
[2019-07-21] MEDS ORDERED: CEFTRIAXONE 1 G VIAL ONE (00:25)
[2019-07-21] MEDS: CEFTRIAXONE 2 G in IV NS 0.9% 100 ML IV SCH (00:27)
[2019-07-21] MEDS: diphenhydrAMINE HCL 25 MG CAPSULE PO PRN ×2 (02:10→21:25)
[2019-07-21 04:00] VITALS: BP 102/57
[2019-07-21 04:42] LABS: BASOPHILS # (AUTO) 0.1 /CMM (0.0-0.2); BASOPHILS % (AUTO) 0.5 % (0.0-2.0); EOSINOPHILS % (AUTO) 4.1 % (0.0-6.0); HEMATOCRIT 45 % (39-51); HEMOGLOBIN 15.2 g/dL (13.5-17.5); LYMPHOCYTES # (AUTO) 1.4 /CMM (0.8-4.8); MEAN CORPUSCULAR HGB CONC 34 g/dl (31.0-36.0); MEAN CORPUSCULAR VOLUME 82 fL (80-96); MONOCYTES # (AUTO) 0.7 /CMM (0.1-1.30); MONOCYTES % (AUTO) 6.5 % (2.0-12.0); NEUTROPHILS # (AUTO) 8.2 /CMM (1.8-8.9); NEUTROPHILS % (AUTO) 75.9 % (43.0-81.0); PLATELET COUNT (AUTO) 237 /CMM (150-450); WHITE BLOOD COUNT (AUTO) 10.8 K/uL (4.3-11.0)
[2019-07-21 04:44] VITALS: BP 116/74
[2019-07-21 05:00] LABS: ALANINE AMINOTRANSFERASE 9 U/L (12-78); ALKALINE PHOSPHATASE 66 U/L (46-116); ASPARTATE AMINOTRANSFERASE 14 U/L (15-37); BILIRUBIN,TOTAL 0.4 mg/dL (0.2-1.0); CALCIUM, SERUM 8.1 mg/dL (8.5-10.1); CARBON DIOXIDE 24 mmol/L (21-32); CHLORIDE 104 mmol/L (98-107); CREATININE 1.4 mg/dL (0.6-1.3); GLUCOSE 117 mg/dL (74-106); MAGNESIUM 1.7 mg/dL (1.8-2.4); PHOSPHORUS 4.6 mg/dL (2.5-4.9); SODIUM SERUM 138 mmol/L (136-145); TOTAL PROTEIN, SERUM 6.5 g/dL (6.4-8.2); UREA NITROGEN, BLOOD 21 mg/dL (7-18)
[2019-07-21 05:07] LABS: CHOLESTEROL 153 mg/dL (<200); HDL CHOLESTEROL 36 mg/dL (40-60); LDL 102 mg/dL (0-99); THYROID STIMULATING HORMONE 3.717 uIU/mL (0.358-3.74); TRIGLYCERIDES 113 mg/dL (30-150)
[2019-07-21 05:56] LABS: EOSINOPHILS % (MANUAL) 3 % (0-4); LYMPHOCYTES % (MANUAL) 14 % (16-48); MONOCYTES % (MANUAL) 10 % (0-11.0); MYELOCYTES % 4 % (0-0); NEUTROPHILS % (MANUAL) 69 (42-76)
--- NOTE | 2019-07-21 06:01 | NUR ---
RN MS CLOSING NOTES PT REMAINS IN BED SLEEPING, EASILY AROUSED TO NAME CALL, BREATHING EVEN AND UNLABORED ON 2L O2 VIA NC. IN NO APPARENT PAIN OR DISCOMFORT AT THIS TIME. IV ACCESS ON THE L FA 20G SL. BED IN LOWEST LOCKED POSITION, CALL LIGHT WITHIN REACH AT ALL TIMES. WILL ENDORSE TO DAY NURSE FOR ROBINSON
[2019-07-21] MEDS ORDERED: FLUTICASONE/SALMETEROL 1 DISK IH SCH (07:00)
--- NOTE | 2019-07-21 07:15 | NUR ---
BAKING FACTORY WORKER OPENING NOTE RECEIVED PT IN BED, RESTING WITH EYES CLOSED AND EASILY AROUSABLE TO VERBAL STIMULI. PT IS ALERT AND ORIENTED X4, DENIES CHEST PAIN, SOB, N/V, BREATHING IS EVEN AND UNLABORED ON 2L NC. PT ON LIQUOR GALLERY OPERATOR AND IS SINUS RHYTHM, HR 83 AT THIS TIME. LEFT FA #20G IS SALINE LOCKED WITHOUT REDNESS OR SWELLING. ASPIRATION PRECAUTIONS MAINTAINED, ALL NEEDS ATTENDED TO. BED IS LOCKED AND IN LOWEST POSITION, SIDE RAILS UP X2, BED ALARM ON, CALL LIGHT AND POSSESSIONS WITHIN REACH.
[2019-07-21] MEDS: ALBUTEROL FS 2.5 MG/0.5 ML VIAL.NEB NEB SCH ×2 (07:35→19:15)
[2019-07-21 08:00] VITALS: BP 101/61
[2019-07-21] MEDS ORDERED: LISINOPRIL (10MG) 10 MG TABLET PO SCH (09:00)
[2019-07-21] MEDS ORDERED: NICOTINE PATCH (14MG) 14 MG PATCH.TD24 TD SCH (09:00)
[2019-07-21] MEDS: TAMSULOSIN 0.4 MG CAP.SR.24H PO SCH (09:07)
[2019-07-21] MEDS: CLOPIDOGREL BISULFATE 75 MG TABLET PO SCH (09:08)
[2019-07-21] MEDS: AZITHROMYCIN 250 MG TABLET PO SCH (09:08)
[2019-07-21] MEDS: DONEPEZIL 5 MG TABLET PO SCH (09:08)
[2019-07-21] MEDS: ASPIRIN 81 MG TAB.CHEW PO SCH (09:08)
[2019-07-21] MEDS: FLUTICASONE/VILANTEROL 1 EACH BLST.W.DEV IH SCH (09:09)
--- NOTE | 2019-07-21 09:09 | NUR ---
MS RN NOTE PT REPORTS HE HASN'T SMOKED IN 30 YEARS, DOES NOT CURRENTLY SMOKE, AND DOES NOT NEED A NICOTINE PATCH, WILL INFORM PRIMARY HOSPITALIST.
[2019-07-21 10:23] LABS: APPEARANCE,URINE CLEAR (CLEAR); BILIRUBIN,URINE NEGATIVE (NEGATIVE); BLOOD, URINE NEGATIVE Ery/uL (NEGATIVE); COLOR,URINE YELLOW (YELLOW); KETONES,URINE NEGATIVE (NEGATIVE); LEUKOCYTE ESTERASE ,URINE NEGATIVE (NEGATIVE); NITRITE, URINE NEGATIVE (NEGATIVE); PROTEIN,URINE NEGATIVE (NEGATIVE); UGLUCOSE NEGATIVE (NEGATIVE); UROBILINOGEN,URINE 0.2 EU/dL (0.2)
[2019-07-21 10:25] LABS: CREATININE, URINE 119.6 MG/DL (30.0-125.0); URINE TOTAL PROTEIN 29.4 mg/dL (0-11.9)
[2019-07-21] MEDS ORDERED: METOPROLOL TARTRATE INJ 5 MG/5 ML AMPUL ONE (10:56)
[2019-07-21] MEDS ORDERED: IOHEXOL-350 100 ML VIAL IV ONE ×2 (10:56→12:03)
[2019-07-21] MEDS ORDERED: IV NS 0.9% 250 ML IV ONE (10:56)
[2019-07-21] MEDS ORDERED: CELLULOSE,OXIDIZED 1 PKT EACH MC ONE (10:56)
[2019-07-21] MEDS ORDERED: IV NS 0.9% 500 ML IV ONE ×2 (11:00→11:23)
[2019-07-21] MEDS ORDERED: NITROGLYCERIN 0.4 MG/TAB BOTTLE SL ONE (11:00)
[2019-07-21] MEDS ORDERED: METOPROLOL TARTRATE INJ 5 MG/5 ML AMPUL IVP ONE (11:00)
--- NOTE | 2019-07-21 11:10 | NUR ---
MS RN NOTE PT OFF UNIT FOR CTA HEART.
--- NOTE | 2019-07-21 12:30 | NUR ---
MS RN NOTE PT BACK FROM CTA
[2019-07-21] MEDS: Magnesium 1GM/D5W 100ML PREMIX 100 ML IV SCH ×2 (12:58→14:25)
--- NOTE | 2019-07-21 12:58 | NUR ---
MS RN NOTE MG SULFATE IV ADMINISTERED LATE DUE TO PT BEING OFF UNIT FOR CTA
[2019-07-21 13:06] LABS: EOSINOPHIL,URINE None Seen
--- NOTE | 2019-07-21 13:15 | NUR ---
MS RN NOTE PRIMARY HOSPITALIST MADE AWARE THAT OVERNIGHT PT GOT ITCHY AND UNCOMFORTABLE AFTER ROCEPHIN ADMINISTRATION. PER INSTRUMENT DESIGNER REPORT PT DID NOT EXPERIENCE SOB OR DIFFICULTY BREATHING AND SYMPTOMS RESOLVED AFTER BENADRYL ADMINISTRATION. NO NEW ORDERS AT THIS TIME.
[2019-07-21] MEDS: IV NS 0.9% 1,000 ML IV PRN (15:01)
--- NOTE | 2019-07-21 15:49 | NUR ---
MS RN NOTE LEFT WRIST IV FOUND TO BE LEAKING, REMOVED WITH CATHETER TIP INTACT. RIGHT AC #18G PATENT, CLEAN, DRY AND INTACT.
[2019-07-21 16:00] VITALS: BP 100/60
--- NOTE | 2019-07-21 17:00 | NUR ---
MS RN NOTE PT STILL UNABLE TO PROVIDE SPUTUM SAMPLE AT THIS TIME.
--- NOTE | 2019-07-21 18:17 | NUR ---
MS RN CLOSING NOTE PT IN BED, ALERT AND ORIENTED X4, DENIES CHEST PAIN, SOB, N/V, BREATHING IS EVEN AND UNLABORED ON 2L NC. RIGHT AC #18 IS INFUSING NS @ 125ML/HR WITHOUT REDNESS OR SWELLING. ADLS PROVIDED AND PT ASSISTED TO TURN AND REPOSITION Q2H FOR THE DURATION OF THE SHIFT. ASPIRATION PRECAUTIONS MAINTAINED, ALL NEEDS ATTENDED TO. BED IS LOCKED AND IN LOWEST POSITION, SIDE RAILS UP X2, BED ALARM ON, CALL LIGHT AND POSSESSIONS WITHIN REACH. WILL ENDORSE TO GASTROENTEROLOGY PROFESSOR NURSE FOR CONTINUITY OF CARE.
--- NOTE | 2019-07-21 19:44 | NUR ---
RN MS OPENING NOTES RECEIVED PT IN BED, AWAKE ALERT ORIENTED X3-4, BREATHING EVEN AND UNLABORED ON 2L O2 VIA NC. NO COMPLAINT OF PAIN OR DISCOMFORT AT THIS TIME . IV ACCESS ON THE L FA 20G SL. BED IN LOWEST LOCKED POSITION, CALL LIGHT WITHIN REACH AT ALL TIMES. WILL CONTINUE TO MONITOR FREQUENTLY
[2019-07-21 20:00] VITALS: BP 98/52
[2019-07-21] MEDS: SIMVASTATIN 20 MG TABLET PO SCH (21:22)
[2019-07-22] MEDS: CEFTRIAXONE 2 G in IV NS 0.9% 100 ML IV SCH (00:12)
--- NOTE | 2019-07-22 01:00 | NUR ---
RN NOTES- PT COMPLAINING OF ITCHINESS THROUGHOUT THE BODY DIRECTLY AFTER RECEIVING 2G OF ROCEPHIN IV. ORDER OBTAINED FOR BENADRYL 25MG PO ONCE
[2019-07-22] MEDS ORDERED: diphenhydrAMINE HCL 25 MG CAPSULE PO ONE (01:30)
[2019-07-22] MEDS: IV NS 0.9% 1,000 ML IV PRN (02:20)
--- NOTE | 2019-07-22 06:14 | NUR ---
RN MS CLOSING NOTES PT REMAINS IN BED, SLEEPING, EASILY AROUSED TO NAME CALL, BREATHING EVEN AND UNLABORED ON 2L O2 VIA NC. IN NO APPARENT PAIN OR DISCOMFORT AT THIS TIME. IV ACCESS ON THE L FA 20G SL 2ND BAG ON NS RUNNING AT 125 ML/HR. BED IN LOWEST LOCKED POSITION, CALL LIGHT WITHIN REACH AT ALL TIMES. WILL ENDORSE TO DAY NURSE FOR ROBINSON
[2019-07-22 06:21] LABS: BASOPHILS % (AUTO) 0.6 % (0.0-2.0); EOSINOPHILS % (AUTO) 5.4 % (0.0-6.0); HEMATOCRIT 40 % (39-51); HEMOGLOBIN 13.4 g/dL (13.5-17.5); LYMPHOCYTES # (AUTO) 0.9 /CMM (0.8-4.8); LYMPHOCYTES % (AUTO) 13.5 % (20.0-44.0); MEAN CORPUSCULAR HGB CONC 34 g/dl (31.0-36.0); MEAN CORPUSCULAR VOLUME 82 fL (80-96); MONOCYTES # (AUTO) 0.6 /CMM (0.1-1.30); MONOCYTES % (AUTO) 8.7 % (2.0-12.0); NEUTROPHILS # (AUTO) 4.8 /CMM (1.8-8.9); NEUTROPHILS % (AUTO) 71.8 % (43.0-81.0); PLATELET COUNT (AUTO) 200 /CMM (150-450); RED BLOOD CELL COUNT(AUTO) 4.82 MIL/uL (4.5-6.0); WHITE BLOOD COUNT (AUTO) 6.7 K/uL (4.3-11.0)
[2019-07-22 06:48] LABS: ALBUMIN 2.8 g/dL (3.4-5.0); ALKALINE PHOSPHATASE 65 U/L (46-116); ASPARTATE AMINOTRANSFERASE 13 U/L (15-37); BILIRUBIN,TOTAL 0.3 mg/dL (0.2-1.0); CALCIUM, SERUM 7.7 mg/dL (8.5-10.1); CARBON DIOXIDE 25 mmol/L (21-32); CHLORIDE 106 mmol/L (98-107); CREATININE 1.4 mg/dL (0.6-1.3); GLUCOSE 85 mg/dL (74-106); MAGNESIUM 2.1 mg/dL (1.8-2.4); PHOSPHORUS 3.9 mg/dL (2.5-4.9); POTASSIUM 3.9 mmol/L (3.5-5.1); SODIUM SERUM 141 mmol/L (136-145); TOTAL PROTEIN, SERUM 6.1 g/dL (6.4-8.2); UREA NITROGEN, BLOOD 18 mg/dL (7-18)
[2019-07-22 06:52] LABS: CREATINE KINASE, TOTAL 63 U/L (39-308)
[2019-07-22 07:03] LABS: ALANINE AMINOTRANSFERASE 8 U/L (12-78)
[2019-07-22 07:22] LABS: EOSINOPHILS % (MANUAL) 3 % (0-4); LYMPHOCYTES % (MANUAL) 18 % (16-48); MONOCYTES % (MANUAL) 8 % (0-11.0); MYELOCYTES % 1 % (0-0); NEUTROPHILS % (MANUAL) 70 (42-76)
--- NOTE | 2019-07-22 07:45 | NUR ---
MS/RN - Assessment Patient in bed awake, A/O x 4, no complaints overnight, afebrile, denies chest pain, on oxygen at 2lpm via NC, no c/o shortness of breath. IVF infusing well on the RAC with no signs of infiltration. Skin is intact, ambulates with cane. Fall and aspiration precautions maintained. Labs reviewed, no critical results noted. Will continue with current medical management
[2019-07-22 08:00] VITALS: BP 108/56
[2019-07-22] MEDS: ALBUTEROL FS 2.5 MG/0.5 ML VIAL.NEB NEB SCH (08:05)
[2019-07-22] MEDS: AZITHROMYCIN 250 MG TABLET PO SCH (08:16)
[2019-07-22] MEDS: TAMSULOSIN 0.4 MG CAP.SR.24H PO SCH (08:16)
[2019-07-22] MEDS: DONEPEZIL 5 MG TABLET PO SCH (08:16)
[2019-07-22] MEDS: CLOPIDOGREL BISULFATE 75 MG TABLET PO SCH (08:16)
[2019-07-22] MEDS: ASPIRIN 81 MG TAB.CHEW PO SCH (08:16)
[2019-07-22] MEDS: FLUTICASONE/VILANTEROL 1 EACH BLST.W.DEV IH SCH (08:17)
--- NOTE | 2019-07-22 08:45 | NUR ---
MS/RN - Notes Hospitalist Dr. Laws made aware that patient c/o severe itching post infusion of Ceftriaxone last night per endorsement of night RN and Benadryl was given with relief. Per Dr. Laws, discontinue Ceftriaxone and update pt's allergy record. Patient also requested to take a shower and hospitalist agreed.
--- NOTE | 2019-07-22 10:00 | NUR ---
MS/RN - Notes Patient in no acute distress, denies chest pain, assisted to the shower room.
[2019-07-22] MEDS ORDERED: AZIT250T13 PO (13:51)
--- NOTE | 2019-07-22 14:30 | NUR ---
MS/RN - Notes Patient requesting oxygen for home use, currently on oxygen at 2lpm via NC, SpO2 on room air was 88. event operations manager made aware and will notify Md to order oxygen.
[2019-07-22 16:05] VITALS: BP 112/60
--- NOTE | 2019-07-22 16:29 | NUR ---
MS/RN - Discharge Patient alert and oriented throughout the shift, discharged home in stable condition, remain afebrile, denies chest pain, not in any form of distress, ambulatory with steady gait/cane. Home health arranged with [facility] [phone], oxygen concentrator will be delivered today at 5pm at home. Reviewed discharge instructions with patient and he verbalized full understanding of all teachings including medications and follow-up care with PCP within 1 week for BP med adjustment and f/u renal dosing. Continue home medications, stop lisinopril due to renal function, prescription for azithromycin given to patient. Seek immediate medical attention for worsening symptoms, chest pain, shortness of breath, palpitations, abdominal pain/distention, intractable nausea and vomiting, diarrhea, hematochezia, melena, weakness, loss of consciousness, neurological deficit, or any other emergent concerns. All belongings with patient and he deny any missing items. Patient refused photos to be taken of skin, no breakdown. Saline lock removed on the RAC with catheter tip intact, no redness, no swelling noted at the site. Discharge paperwork signed and copies were given per protocol. Accompanied to the lobby via wheelchair and transported by private car by friend
[2019-07-22] MEDS ORDERED: LACTOBACILLUS RHAMNOSUS GG 1 EACH CAP.SPRINK PO SCH (17:00)
[2019-07-23 14:09] LABS: PTH, INTACT 28 pg/mL (15-65)
[2019-07-24 05:07] LABS: *SPE A/G RATIO 1.1 (0.7-1.7); *SPE ALBUMIN 2.9 g/dL (2.9-4.4); *SPE ALPHA-1-GLOBULIN 0.2 g/dL (0.0-0.4); *SPE ALPHA-2-GLOBULIN 0.8 g/dL (0.4-1.0); *SPE BETA GLOBULIN 0.9 g/dL (0.7-1.3); *SPE GLOBULIN, TOTAL 2.7 g/dL (2.2-3.9); *SPE M-SPIKE Not Observed g/dL (Not Observed); *SPEGAMMA GLOBULIN 0.7 g/dL (0.4-1.8)
== END 2019-07-22 16:30 | disposition home health service (06) | DRG 682 ==
LOC: ER 18:01 → TELE 20:30 → MED 07-21 08:29
PROVIDERS: ADMIT Registered Nurse; ATTEND Hospitalist
DX: N17.0 Acute kidney failure with tubular necrosis (principal); J15.9 Unspecified bacterial pneumonia; I13.0 Hypertensive heart and chronic kidney disease with heart failure and stage 1 through stage 4 chronic kidney disease, or unspecified chronic kidney disease; I50.32 Chronic diastolic (congestive) heart failure; E44.1 Mild protein-calorie malnutrition; I69.351 Hemiplegia and hemiparesis following cerebral infarction affecting right dominant side; I69.354 Hemiplegia and hemiparesis following cerebral infarction affecting left non-dominant side; J43.9 Emphysema, unspecified; R07.81 Pleurodynia; I50.9 Heart failure, unspecified; N18.9 Chronic kidney disease, unspecified; E86.0 Dehydration; N40.0 Benign prostatic hyperplasia without lower urinary tract symptoms; Z86.711 Personal history of pulmonary embolism; Z79.02 Long term (current) use of antithrombotics/antiplatelets; Z79.51 Long term (current) use of inhaled steroids; E83.42 Hypomagnesemia; E78.5 Hyperlipidemia, unspecified; Z79.899 Other long term (current) drug therapy; Z87.891 Personal history of nicotine dependence; K21.9 Gastro-esophageal reflux disease without esophagitis; J40 Bronchitis, not specified as acute or chronic; Z88.1 Allergy status to other antibiotic agents
CPT/HCPCS: 36415; 71045-TC; 75574; 80048-TC; 80053-TC; 80061-TC; 80076-TC; 81000-TC; 82550-TC; 82570-TC; 83605-TC; 83735-TC; 83880; 83970; 84100-TC; 84155; 84155-TC; 84165; 84300-TC; 84443-TC; 84484-TC; 85025-TC; 87040-TC; 87081-TC; 93307-TC; 94799-TC; 97116-TC; 97530-TC; G0378; J0696; J2270; J2405; J3475; J3490; J7030; J7040; J7050; Q0163; Q9967

== ENCOUNTER 2019-08-26 17:07 | Inpatient (IN) | payer MEDICARE, OTHER ==
[~2019-08-26] VITALS: Ht 167.6 cm; Wt 62.8 kg
[~2019-08-26 17:07] MED LIST changes: +AZIT250T13 PO; -LISI10TA5 PO
--- NOTE | 2019-08-26 17:20 | NUR ---
BIB SELF 79 YEAR OLD MALE C/O SOB, COUGH x 4 DAYS, AFEBRILE, ALERT AND OREINTED X3 BREATHING EVEN AND UNALBORED. SKIN INTACT. PATIENT IS ABLE TO AMBULATE WITH CANE. WAITING TO BE SEEN BY
[2019-08-26] MEDS ORDERED: IPRATROPIUM NEB FS 0.5 MG/2.5 ML AMPUL.NEB ONE (17:59)
[2019-08-26] MEDS ORDERED: ALBUTEROL FS 2.5 MG/3 ML VIAL.NEB ONE (17:59)
[2019-08-26] MEDS ORDERED: IPRATROPIUM NEB FS 0.5 MG/2.5 ML AMPUL.NEB NEB ONE (18:00)
[2019-08-26] MEDS ORDERED: ALBUTEROL FS 2.5 MG/0.5 ML VIAL.NEB NEB ONE (18:00)
[2019-08-26 18:08] LABS: BASOPHILS # (AUTO) 0.1 /CMM (0.0-0.2); EOSINOPHILS % (AUTO) 5.4 % (0.0-6.0); HEMATOCRIT 44 % (39-51); HEMOGLOBIN 15.2 g/dL (13.5-17.5); LYMPHOCYTES # (AUTO) 1.6 /CMM (0.8-4.8); LYMPHOCYTES % (AUTO) 16.5 % (20.0-44.0); MEAN CORPUSCULAR HGB CONC 34 g/dl (31.0-36.0); MEAN CORPUSCULAR VOLUME 84 fL (80-96); MONOCYTES # (AUTO) 0.7 /CMM (0.1-1.30); MONOCYTES % (AUTO) 6.8 % (2.0-12.0); NEUTROPHILS # (AUTO) 6.9 /CMM (1.8-8.9); NEUTROPHILS % (AUTO) 70.3 % (43.0-81.0); PLATELET COUNT (AUTO) 182 /CMM (150-450); WHITE BLOOD COUNT (AUTO) 9.8 K/uL (4.3-11.0)
--- NOTE | 2019-08-26 18:26 | NUR ---
RT AT BEDSIDE FOR BREATHING TX TO PATIENT
[2019-08-26 18:36] LABS: CALCIUM, SERUM 9.2 mg/dL (8.5-10.1); CARBON DIOXIDE 28 mmol/L (21-32); CHLORIDE 100 mmol/L (98-107); CREATININE 1.5 mg/dL (0.6-1.3); GLUCOSE 101 mg/dL (74-106); POTASSIUM 4.1 mmol/L (3.5-5.1); SODIUM SERUM 139 mmol/L (136-145); UREA NITROGEN, BLOOD 23 mg/dL (7-18)
[2019-08-26 18:43] LABS: ALANINE AMINOTRANSFERASE 37 U/L (12-78); ALBUMIN 4.1 g/dL (3.4-5.0); ALKALINE PHOSPHATASE 87 U/L (46-116); ASPARTATE AMINOTRANSFERASE 31 U/L (15-37); BILIRUBIN,DIRECT 0.1 mg/dL (0.0-0.2); BILIRUBIN,TOTAL 0.4 mg/dL (0.2-1.0); TOTAL PROTEIN, SERUM 8.5 g/dL (6.4-8.2)
--- NOTE | 2019-08-26 19:14 | NUR ---
PT RECEIVED ON BED AAOX4. NOTED SATTING AT 89-90% ON RA. PLACED ON 2 LPM VIA NC, SATING @ 93%. AWARE
[2019-08-26] MEDS ORDERED: MEROPENEM 500 MG in IV NS 0.9% 50 ML IV ONE (19:30)
[2019-08-26] MEDS ORDERED: AZITHROMYCIN 500 MG in IV D5W 250 ML IV ONE (19:30)
[2019-08-26] MEDS ORDERED: methylPREDNISolone SOD SUCC 125 MG/2ML VIAL IV ONE (19:30)
[2019-08-26] MEDS ORDERED: MEROPENEM 500 MG VIAL IV ONE (19:32)
[2019-08-26] MEDS ORDERED: methylPREDNISolone SOD SUCC 125 MG/2ML VIAL ONE (19:32)
[2019-08-26] MEDS ORDERED: AZITHROMYCIN 500 MG VIAL ONE (19:32)
[2019-08-26] MEDS ORDERED: WATER FOR INJECTION,STERILE 10 ML ONE (19:34)
[2019-08-26] MEDS ORDERED: Z GUARD REMEDY 2 OZ OINT TP PRN (20:00)
[2019-08-26] MEDS ORDERED: MAGNESIUM HYDROXIDE 30 ML UDC PO PRN (20:00)
[2019-08-26] MEDS ORDERED: HYDROCODONE/APAP 5/325MG 1 EACH TABLET PO PRN (20:00)
[2019-08-26] MEDS ORDERED: ACETAMINOPHEN 325 MG TABLET PO PRN (20:00)
[2019-08-26] MEDS ORDERED: ZOLPIDEM TARTRATE 5 MG TABLET PO PRN (20:00)
[2019-08-26] MEDS ORDERED: ONDANSETRON HCL/PF 4 MG/2 ML VIAL IVP PRN (20:00)
--- NOTE | 2019-08-26 20:17 | NUR ---
REPORT CALLED PSYCHOLOGY PHYSICIAN AMY. WILL TRANSPORT PT VIA [facility] PROTOCOL.
[2019-08-26 20:40] VITALS: BP 151/86
--- NOTE | 2019-08-26 20:59 | NUR ---
PT TRANSPORTED TO UNIT WITH EMT AND RN AT BEDSIDE W/ [facility] PROTOCOL. NAD NOTED DURING TRANSPORT. PT AMBULATED FROM GURNEY TO BED ON STEADY GAIT WITH AN AIDE OF A CANE.
--- NOTE | 2019-08-26 21:00 | NUR ---
BACK [employer]AYER[employer]Y SUPERINTENDENT OF SCHOOLS NOTES RECEIVED PATIENT FROM ER VIA [facility] ACCOMPANIED BY ER STAFF. ALERT AND ORIENTED X 4, VERBALLY RESPONSIVE AND ABLE TO FOLLOW DIRECTIONS. ABLE TO AMBULATE STEADILY FROM RENGADINE TO BED WITH HIS CANE. BREATHING REGULAR AND UNLABORED ON OXYGEN VIA NASAL CANNULA AT 2L/MIN, LATEST SPO2 94%. RIGHT AC G18 IV LINE INTACT AND PATENT, FLUSHING WELL WITH NO BLEEDING OR S/S OF INFECTION/INFILTRATION SEEN. BODY ASSESSMENT DONE, OBSERVED WITH LEFT LOWER LEG SCAR AND RIGHT TEMPORAL SKIN DISCOLORATION. PHOTO TAKEN, KEPT IN THE CHART. BELONGINGS CHECKED AND DOCUMENTED. ATTACHED TO LIVE AMMUNITION INSPECTOR WITH NORMAL SINUS RHYTHM AT 91bpm. NO COMPLAINTS OF PAIN/DISCOMFORT REPORTED OF THE TIME. REQUEST FOR FOOD, ACQUISITIONS LIBRARIAN TAQUERIA MADE AWARE WITH ORDERS TO START CARDIAC DIET. JUICES AND EGG SANDWICH GIVEN. TOLERATED WELL WITH NO EPISODE OF NAUSEA/VOMITING. BED LOW AND LOCKED ON SEMI FOWLERS POSITION. WILL CONTINUE TO MONITOR.
[2019-08-27 00:01] VITALS: BP 121/62
[2019-08-27] MEDS ORDERED: ALBUTEROL HALF STRENGTH 1.25 MG/3 ML VIAL.NEB NEB PRN (03:30)
[2019-08-27] MEDS ORDERED: IPRATROPIUM NEB FS 0.5 MG/2.5 ML AMPUL.NEB NEB PRN (03:30)
[2019-08-27] MEDS ORDERED: IV NS 0.9% 1,000 ML IV PRN (03:30)
--- NOTE | 2019-08-27 03:30 | NUR ---
MS RN NOTES SEEN AND EXAMINED BY RASHAAD MENG WITH ORDERS TO DC CARDIAC MONITORING NOTED AND CARRIED OUT.
--- NOTE | 2019-08-27 04:00 | NUR ---
MS RN NOTES PLACED ON CONTINUOS PULSE OXIMETRY ORDERED WITH LATEST SPO2 AT 95%. NO EPISODE OF RESPIRATORY DISTRESS NOTED. WILL CONTINUE TO MONITOR.
[2019-08-27] MEDS ORDERED: methylPREDNISolone SOD SUCC 40 MG/ML VIAL IV SCH (05:00)
[2019-08-27 06:21] LABS: BASOPHILS % (AUTO) 0.1 % (0.0-2.0); EOSINOPHILS % (AUTO) 0.1 % (0.0-6.0); HEMATOCRIT 42 % (39-51); HEMOGLOBIN 14.2 g/dL (13.5-17.5); LYMPHOCYTES # (AUTO) 0.9 /CMM (0.8-4.8); LYMPHOCYTES % (AUTO) 11.3 % (20.0-44.0); MEAN CORPUSCULAR HGB CONC 34 g/dl (31.0-36.0); MEAN CORPUSCULAR VOLUME 83 fL (80-96); MONOCYTES # (AUTO) 0.1 /CMM (0.1-1.30); MONOCYTES % (AUTO) 0.9 % (2.0-12.0); NEUTROPHILS # (AUTO) 6.6 /CMM (1.8-8.9); NEUTROPHILS % (AUTO) 87.6 % (43.0-81.0); PLATELET COUNT (AUTO) 172 /CMM (150-450); RED BLOOD CELL COUNT(AUTO) 5.04 MIL/uL (4.5-6.0); WHITE BLOOD COUNT (AUTO) 7.5 K/uL (4.3-11.0)
--- NOTE | 2019-08-27 06:34 | NUR ---
MS RN CLOSING NOTES PATIENT IN BED ALERT AND ORIENTED X 4, VERBALLY RESPONSIVE AND ABLE TO FOLLOW DIRECTIONS. BREATHING REGULAR AND UNLABORED ON OXYGEN VIA NASAL CANNULA AT 2L/MIN, ON CONTINUOS PULSE OXIMETRY WITH LATEST SPO2 95%. RIGHT AC G18 IV LINE INTACT AND PATENT, FLUSHING WELL WITH NO BLEEDING OR S/S OF INFECTION/INFILTRATION SEEN. NO COMPLAINTS OF PAIN/DISCOMFORT REPORTED WITHIN THE SHIFT. BRP WITH ASSISTIVE DEVICE, SEEN WITH CLEAR YELLOW URINE. BED LOW AND LOCKED ON SEMI FOWLERS POSITION. WILL ENDORSE TO MORNING SHIFT FOR ROBINSON.
[2019-08-27 06:49] LABS: CALCIUM, SERUM 8.5 mg/dL (8.5-10.1); CARBON DIOXIDE 24 mmol/L (21-32); CHLORIDE 102 mmol/L (98-107); CREATININE 1.5 mg/dL (0.6-1.3); GLUCOSE 226 mg/dL (74-106); MAGNESIUM 2.1 mg/dL (1.8-2.4); PHOSPHORUS 3.8 mg/dL (2.5-4.9); POTASSIUM 4.5 mmol/L (3.5-5.1); SODIUM SERUM 138 mmol/L (136-145); UREA NITROGEN, BLOOD 27 mg/dL (7-18)
--- NOTE | 2019-08-27 07:40 | NUR ---
MS RN NOTES PATIENT AWAKE, LYING IN BED, ALERT AND ORIENTED X4, NO RESPIRATORY DISTRESS, ON NASAL CANULA O2 AT 2L. NO C/O PAIN AT THIS TIME. SKIN WARM TO TOUCH. IV ACCESS SITE INTACT AND PATENT. PATIENT'S NEEDS ATTENDED. BED ON LOWEST LOCKED POSITION, CALL LIGHT WITHIN REACH. WILL CONTINUE TO MONITOR.
[2019-08-27 08:00] VITALS: BP 147/76
[2019-08-27] MEDS ORDERED: BUPR1TAB34 PO (08:27)
[2019-08-27] MEDS ORDERED: ZOLP5TAB8 PO (08:27)
[2019-08-27 16:00] VITALS: BP 127/66
[2019-08-27] MEDS: ENSURE ENLIVE 237 ML LIQUID (VANILLA) PO SCH (18:06)
[2019-08-27 20:00] VITALS: BP 136/77
[2019-08-27] MEDS: methylPREDNISolone SOD SUCC 40 MG/ML VIAL IV SCH (20:44)
[2019-08-28 07:30] VITALS: BP 124/70
[2019-08-28] MEDS: ENSURE ENLIVE 237 ML LIQUID (VANILLA) PO SCH ×3 (08:45→18:26)
[2019-08-28] MEDS: methylPREDNISolone SOD SUCC 40 MG/ML VIAL IV SCH ×2 (08:45→20:10)
[2019-08-28 15:25] LABS: APPEARANCE,URINE CLEAR (CLEAR); BILIRUBIN,URINE NEGATIVE (NEGATIVE); BLOOD, URINE NEGATIVE Ery/uL (NEGATIVE); COLOR,URINE YELLOW (YELLOW); KETONES,URINE NEGATIVE (NEGATIVE); LEUKOCYTE ESTERASE ,URINE NEGATIVE (NEGATIVE); NITRITE, URINE NEGATIVE (NEGATIVE); PROTEIN,URINE NEGATIVE (NEGATIVE); UGLUCOSE NEGATIVE (NEGATIVE); UROBILINOGEN,URINE 0.2 EU/dL (0.2)
[2019-08-28 16:12] VITALS: BP 100/58
--- NOTE | 2019-08-28 16:40 | NUR ---
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 CONTACT ISOLATION PLACED.
[2019-08-28] MEDS ORDERED: ZOLPIDEM TARTRATE 5 MG TABLET PO PRN (19:00)
--- NOTE | 2019-08-28 19:20 | NUR ---
M/S RN NOTES PATIENT AWAKE IN BED, PATIENT IN NO RESPIRATORY DISTRESS SPO2 AT 94% VIA NASAL CANULA O2 AT 2.5L. PATIENT WITH NO C/O PAIN. IV NS INFUSING AT 60ML/HR ON THE RAC, INTACT AND PATENT. PATIENT'S NEEDS ATTENDED. BED ON LOWEST LOCKED POSITION, CALL LIGHT WITHIN REACH. WILL ENDORSE TO ONCOMING SHIFT.
--- NOTE | 2019-08-28 19:25 | NUR ---
RN INITIAL NOTES: RECEIVED REPORT FROM LEO GARCIA. MET WITH PT, A/O X4, ON 2.5L OXYGEN VIA NC, NOTED PT TO BE MOUTH BREATHER, RR 20. PER MD SCHMIDT FOR GENTLE IV HYDRATION. PT HAS RIGHT AC G 18, IV ACCESS PATENT AND FLUSHING WELL, INFUSING WITH NS AT 60ML/HR. NO S/S OF IV INFILTRATION NOTED. URINAL WITHIN REACH. DISCUSSED WITH PT REGARDING PLAN OF CARE TONIGHT, PT AGREE, REQUESTING FOR SLEEPING PILL AT 2100 AND BREATHING TX AT 2000. PT USES CANE, NEEDS MODERATE ASSISTANCE WITH AMBULATION. PT CONNECTED ON CONTINUOS PULSE OXIMETRY SPO2 94% HR 70. PT + MRSA NARES, WILL BE STARTED ON BACTROBAN. PPE UTILIZED. SAFETY PRECAUTIONS FOR FALL INITIATED, CALL LIGHT IN REACH, WILL CONTINUE MONITORING PT.
[2019-08-28 20:00] VITALS: BP 119/68
[2019-08-28] MEDS: CLOPIDOGREL BISULFATE 75 MG TABLET PO SCH (20:11)
[2019-08-28] MEDS: TAMSULOSIN 0.4 MG CAP.SR.24H PO SCH (20:11)
[2019-08-28] MEDS: MUPIROCIN OINT 2% 22 GM TUBE SCH (20:11)
--- NOTE | 2019-08-28 21:16 | NUR ---
PRN AMBIEN: PT REQUESTED FOR SLEEPING PILL, PRN AMBIEN 5MG TAB PO ADMINISTERED TO PT AT THIS TIME. EDUCATE PT REGARDING MEDICATION SIDE EFFECT. WILL CONTINUE TO MONITOR AND REASSESS.
[2019-08-28] MEDS ORDERED: SIMVASTATIN 20 MG TABLET PO SCH (22:00)
--- NOTE | 2019-08-29 06:35 | NUR ---
RN NOTES: CONTACTED RT FOR PRN BREATHING TX, PER RT TOÑO, THEY ARE CHANGING SHIFT RIGHT NOW AND WILL SEND NEW RT ONCE FINISH.
[2019-08-29 06:45] LABS: CALCIUM, SERUM 8.4 mg/dL (8.5-10.1); CREATININE 1.2 mg/dL (0.6-1.3); POTASSIUM 4.1 mmol/L (3.5-5.1)
--- NOTE | 2019-08-29 06:57 | NUR ---
RN CLOSING NOTES: PT REMAINS ON 2.5L OXYGEN VIA NC, DENIES ANY SOB AT THIS TIME. REMAINS ON CONTINUOUS PULSE OXIMETRY, SPO2 STABLE AT 94%. URINAL WITHIN REACH. IV ACCESS REMAINS PATENT AND FLUSHING WELL, INFUSING WITH IVF ORDERED. PPE UTILIZED FOR ISOLATION MRSA NARES. VS REMAINS STABLE, NEEDS ATTENDED. DC PLANNING TODAY. SAFETY PRECAUTIONS FOR FALL REMAINS ENGAGED, CALL LIGHT IN REACH, WILL ENDORSE TO DAY RN FOR CONTINUITY OF CARE.
--- NOTE | 2019-08-29 07:40 | NUR ---
MS RN OPENING NOTES RECEIVED PT LAYING IN BED WITH HOB ELEVATED. PT IS A/O X4, AFEBRILE. RESPIRATIONS ARE EVEN AND UNLABORED, NOT IN ANY ACUTE DISTRESS NOTED. ON O2 @2.5L/MIN VIA NC, TOLERATING WELL. PT DENIES ANY PAIN AT THIS TIME, NO C/O SOB, N/V. IV SITE TO RAC INTACT, NO INFILTRATION NOTED. DRESSING KEPT CLEAN AND DRY. SAFETY MEASURES ARE IN PLACE. INSTRUCTED PT TO USE CALL LIGHT WHEN ASSISTANCE IS NEEDED, CALL LIGHT IS LEFT WITHIN REACH. WILL MONITOR THROUGHOUT SHIFT FOR CONTINUITY OF CARE.
[2019-08-29 08:00] VITALS: BP 113/70
[2019-08-29] MEDS: methylPREDNISolone SOD SUCC 40 MG/ML VIAL IV SCH (08:19)
[2019-08-29] MEDS: TAMSULOSIN 0.4 MG CAP.SR.24H PO SCH (08:19)
[2019-08-29] MEDS: ENSURE ENLIVE 237 ML LIQUID (VANILLA) PO SCH ×2 (08:25→12:21)
[2019-08-29] MEDS: MUPIROCIN OINT 2% 22 GM TUBE SCH (08:25)
[2019-08-29] MEDS ORDERED: FLUTICASONE/VILANTEROL 1 EACH BLST.W.DEV IH SCH (09:00)
[2019-08-29] MEDS ORDERED: DONEPEZIL 5 MG TABLET PO SCH (09:00)
--- NOTE | 2019-08-29 11:00 | NUR ---
MS RN NOTES-- PT WAS SEEN AND EXAMINED BY DR. FERNANDEZ W/ VIKI FOR DISCHARGE TO HOME. PER PT, HE HAS HIS OWN CG AND HH. DOMINGUEZ BALL AWARE.
[2019-08-29] MEDS: CLOPIDOGREL BISULFATE 75 MG TABLET PO SCH (12:21)
--- NOTE | 2019-08-29 13:45 | NUR ---
MS PANTOGRAPH MACHINE OPERATOR NOTE PT DISCHARGE TO HOME, SELF CARE P/U BY FRIEND PAT VIA PERSONAL VEHICLE. PT IS A/O X4, AFEBRILE. RESPIRATIONS ARE EVEN AND UNLABORED, NOT IN ANY ACUTE DISTRESS NOTED. PUPILS ARE REACTIVE TO LIGHT, BILATERAL HAND JEWELRY TECHNICIAN ARE STRONG AND EQUAL. DENIES ANY PAIN, NO C/O SOB, N/V AT THIS TIME. ABDOMEN IS SOFT AND NONDISTENDED, BOWEL SOUNDS ARE PRESENT IN ALL 4 QUADRANTS UPON AUSCULTATION. DENIES ANY BLADDER DISCOMFORT. PICTURES TAKEN TO RIGHT TEMPORAL AND LLE SCAR, PLACED IN CHART. IV ACCESS REMOVED, APPLIED PRESSURE AND TOLERATED WELL. ID BANDS REMOVED. ALL BELONGINGS ACCOUNTED FOR AND SENT HOME WITH PT. EXPLAINED DISCHARGE PAPERWORK TO PT WITH VERBAL AND WRITTEN UNDERSTANDING. ACCOMPANIED PT VIA WHEELCHAIR TO PERSONAL VEHICLE WITH 2 STAFF ASSISTANCE. PT LEFT IN STABLE CONDITION.
== END 2019-08-29 14:00 | disposition home or self-care (01) | DRG 189 ==
LOC: ER 17:07 → TELE 20:31 → MED 08-27 10:43
PROVIDERS: ADMIT Nurse Practitioner Acute Care; ATTEND Nurse Practitioner Acute Care
DX: J96.21 Acute and chronic respiratory failure with hypoxia (principal); N17.0 Acute kidney failure with tubular necrosis; I13.0 Hypertensive heart and chronic kidney disease with heart failure and stage 1 through stage 4 chronic kidney disease, or unspecified chronic kidney disease; J44.1 Chronic obstructive pulmonary disease with (acute) exacerbation; J98.11 Atelectasis; I50.9 Heart failure, unspecified; N18.9 Chronic kidney disease, unspecified; Z86.73 Personal history of transient ischemic attack (TIA), and cerebral infarction without residual deficits; I48.91 Unspecified atrial fibrillation; Z86.711 Personal history of pulmonary embolism; Z86.718 Personal history of other venous thrombosis and embolism; Z87.891 Personal history of nicotine dependence; K21.9 Gastro-esophageal reflux disease without esophagitis; N40.0 Benign prostatic hyperplasia without lower urinary tract symptoms; Z79.02 Long term (current) use of antithrombotics/antiplatelets; Z79.51 Long term (current) use of inhaled steroids; Z99.81 Dependence on supplemental oxygen; Z87.01 Personal history of pneumonia (recurrent); F03.90 Unspecified dementia, unspecified severity, without behavioral disturbance, psychotic disturbance, mood disturbance, and anxiety; Z88.1 Allergy status to other antibiotic agents; E78.5 Hyperlipidemia, unspecified; E86.0 Dehydration; Z79.899 Other long term (current) drug therapy
CPT/HCPCS: 36415; 71045-TC; 80048-TC; 80076-TC; 81000-TC; 83605-TC; 83735-TC; 84100-TC; 84484-TC; 85025-TC; 85730-TC; 87040-TC; 87081-TC; 87086-TC; 97116-TC; 97530-TC; A4216; G0378; J0456; J2185; J2920; J2930; J7030; J7060

== ENCOUNTER 2020-01-30 18:41 | Inpatient (IN) | payer MEDICARE, OTHER ==
[~2020-01-30] VITALS: Ht 165.1 cm; Wt 73.9 kg
[~2020-01-30 18:41] MED LIST changes: -AZIT250T13 PO; +BUPR1TAB45 PO; +SIMV-49 PO; -SIMV40TA5 PO; +ZOLP5TAB8 PO
--- NOTE | 2020-01-30 18:50 | NUR ---
BIBRA88 FRM HOME FOR SYNCOPAL EPISODE. PER EMS BG READING HIGH. PT AWAKE C/O SOB. PATIENT A/OX3, BREATHING EVEN AND UNLABORED, NO SOB NOTED, WAS ABLE TO PROVIDE URINE VIA URINAL. IV LINE FLUSHING ON LEFT HAND G20 IV.
[2020-01-30 19:12] LABS: BASOPHILS # (AUTO) 0.1 /CMM (0.0-0.2); BASOPHILS % (AUTO) 0.4 % (0.0-2.0); EOSINOPHILS % (AUTO) 0.1 % (0.0-6.0); HEMATOCRIT 47 % (39-51); HEMOGLOBIN 15.3 g/dL (13.5-17.5); LYMPHOCYTES # (AUTO) 0.7 /CMM (0.8-4.8); LYMPHOCYTES % (AUTO) 3.6 % (20.0-44.0); MEAN CORPUSCULAR HGB CONC 32 g/dl (31.0-36.0); MEAN CORPUSCULAR VOLUME 88 fL (80-96); MONOCYTES # (AUTO) 0.3 /CMM (0.1-1.30); MONOCYTES % (AUTO) 1.7 % (2.0-12.0); NEUTROPHILS # (AUTO) 18.9 /CMM (1.8-8.9); NEUTROPHILS % (AUTO) 94.2 % (43.0-81.0); PLATELET COUNT (AUTO) 191 /CMM (150-450); RED BLOOD CELL COUNT(AUTO) 5.35 MIL/uL (4.5-6.0)
[2020-01-30 19:14] LABS: BILIRUBIN,URINE Negative (NEGATIVE); BLOOD, URINE Trace-lysed Ery/uL (NEGATIVE); COLOR,URINE Yellow (YELLOW); KETONES,URINE Negative (NEGATIVE); LEUKOCYTE ESTERASE ,URINE Negative (NEGATIVE); NITRITE, URINE Negative (NEGATIVE); PROTEIN,URINE Negative (NEGATIVE); UGLUCOSE >=1000 mg/dL (NEGATIVE); UROBILINOGEN,URINE 0.2 EU/dL (0.2)
[2020-01-30 19:17] LABS: APPEARANCE,URINE HAZY (CLEAR); RBC,URINE 0-2 /HPF (0-2)
[2020-01-30 19:18] LABS: BACTERIA,URINE Rare /HPF (None Seen); SQUAMOUS EPITHELIAL CELL,UR Rare /HPF (None Seen); YEAST,URINE Few /HPF (None Seen)
[2020-01-30] MEDS ORDERED: INSULIN REGULAR, HUMAN 100 UNIT/ML 10 ML VIAL IV ONE (19:30)
[2020-01-30] MEDS ORDERED: IV NS 0.9% 1,000 ML BAG IV ONE ×2 (19:30→21:00)
[2020-01-30 19:43] LABS: SERUM AMMONIA 3 umol/L (11-32)
[2020-01-30 19:58] LABS: ALANINE AMINOTRANSFERASE 57 U/L (12-78); ALBUMIN 2.8 g/dL (3.4-5.0); ALCOHOL, BLOOD < 3 mg/dL (0-0); ALKALINE PHOSPHATASE 75 U/L (46-116); ASPARTATE AMINOTRANSFERASE 25 U/L (15-37); BILIRUBIN,DIRECT 0.1 mg/dL (0.0-0.2); BILIRUBIN,TOTAL 0.7 mg/dL (0.2-1.0); CARBON DIOXIDE 20 mmol/L (21-32); CHLORIDE 87 mmol/L (98-107); CREATININE 2.1 mg/dL (0.6-1.3); POTASSIUM 4.8 mmol/L (3.5-5.1); SODIUM SERUM 123 mmol/L (136-145); TOTAL PROTEIN, SERUM 6.2 g/dL (6.4-8.2); UREA NITROGEN, BLOOD 46 mg/dL (7-18)
[2020-01-30] MEDS ORDERED: INSULIN REGULAR, HUMAN 100 UNIT/ML 10 ML VIAL ONE (20:04)
[2020-01-30 20:08] LABS: GLUCOSE 716 mg/dL (74-106)
[2020-01-30 20:15] LABS: THYROID STIMULATING HORMONE 1.315 uIU/mL (0.358-3.74)
--- NOTE | 2020-01-30 20:18 | NUR ---
CALLED [employer]. SKETCH MAKER WAS PAGED.
--- NOTE | 2020-01-30 20:23 | NUR ---
CALLED HOUSE SUP FOR BRIDGETT BED
--- NOTE | 2020-01-30 21:23 | NUR ---
REPORT GIVEN TO RADHA CLEARY FOR ROBINSON. TO TELE 107
--- NOTE | 2020-01-30 21:25 | NUR ---
Received report from RADHA Salgado in ER for ROBINSON.
--- NOTE | 2020-01-30 21:32 | NUR ---
SUPERVISOR BOATBUILDERS WOOD NOTE: Pt transferred to unit from ER via gurney accompanied by RN and and EMT, transferred to bed, cleaned and pictures taken. Pt BRIDGETT status w/ admit dx of syncope w/ c/o SOB. On room air w/ no SOB or respiratory distress noted. Kendra Johnson, PCP aware that pt is now in unit. Pt A&Ox4, on tele monitor reading SR. Has IV site on right AC, line flushed and patent. Dressing c/d/i. Urinal at bedside. Pt uncooperative, yelling "leave me alone, I want to sleep" when asking questions. Vitals: B/P 150/74 HR 90, O2 98% RR 20, T 97.9. Oriented to room and call light. Safety measures in place. Bed in lowest and locked position, side rails up x3, call light within reach. Will continue to monitor.
[2020-01-30 21:35] VITALS: BP 150/74
--- NOTE | 2020-01-30 21:38 | NUR ---
PT TRANSPORTED TO UNIT ON GURFORBES WITH EMT AND RN AT [facility] W/ ACLS PROTOCOL. NAD NOTED DURING TRANSPORT
--- NOTE | 2020-01-30 21:52 | NUR ---
RN NOTE: Received crit lab from lab lactic acid reflex 7.5. Kendra zamarripa, NNO.
[2020-01-30] MEDS ORDERED: IV NS 0.9% 1,000 ML IV STA (21:53)
[2020-01-30] MEDS ORDERED: DEXTROSE 50%-WATER 50 ML DISP.SYRIN IV PRN (22:00)
[2020-01-30] MEDS ORDERED: FLUCONAZOLE IN NS 100 MG in PREMIX 1 EA IV SCH ×2 (22:00)
[2020-01-30] MEDS ORDERED: Z GUARD REMEDY 2 OZ OINT TP PRN (22:00)
[2020-01-30] MEDS ORDERED: HYDROCODONE/APAP 5/325MG 1 EACH TABLET PO PRN (22:00)
[2020-01-30] MEDS ORDERED: ONDANSETRON HCL/PF 4 MG/2 ML VIAL IVP PRN (22:00)
[2020-01-30] MEDS ORDERED: IV NS 0.9% 1,000 ML IV SCH (22:00)
[2020-01-30] MEDS ORDERED: MAGNESIUM HYDROXIDE 30 ML UDC PO PRN (22:00)
[2020-01-30] MEDS ORDERED: ACETAMINOPHEN 325 MG TABLET PO PRN (22:00)
[2020-01-30] MEDS ORDERED: ZOLPIDEM TARTRATE 5 MG TABLET PO PRN ×2 (22:00)
[2020-01-30] MEDS ORDERED: MAG HYDROX/AL HYDROX/SIMETH 30 ML UDC PO PRN (22:00)
[2020-01-30 22:05] VITALS: BP 150/74
[2020-01-30] MEDS: ZOSYN IVPB 2.25 G in IV D5W 50ml IV SCH (22:30)
[2020-01-30] MEDS ORDERED: SIMVASTATIN 20 MG TABLET ONE (22:33)
[2020-01-30] MEDS: SIMVASTATIN 40 MG TABLET PO SCH ×2 (22:36→22:39)
[2020-01-30] MEDS ORDERED: PIPERACILLIN /TAZOBACTAM 2.25 G VIAL IV ONE (22:39)
[2020-01-30] MEDS ORDERED: VANCOMYCIN 1.75 GM in IV NS 0.9% 500 ML IV ONE (23:00)
--- NOTE | 2020-01-30 23:32 | NUR ---
RN NOTE: Inserted new IV site on left wrist #20. Patent and flushed
[2020-01-30] MEDS ORDERED: VANCOMYCIN 1 GM VIAL ONE (23:38)
[2020-01-31] VITALS (8 sets, daily range): BP systolic 94–138; BP diastolic 43–109
[2020-01-31] MEDS ORDERED: PIPERACILLIN /TAZOBACTAM 3.375 G in IV D5W 50 ML IV SCH ×2
--- NOTE | 2020-01-31 01:00 | NUR ---
RN NOTE: Swabbed pt for Covid-19, rapid influenza, and respiratory virus and dropped off to the lab.
[2020-01-31] MEDS ORDERED: FLUCONAZOLE IN NS 100 ML IV ONE (01:39)
[2020-01-31] MEDS: BLOOD SUGAR DIAGNOSTIC 1 EACH STRIP IN SCH ×6 (01:48→20:45)
[2020-01-31] MEDS ORDERED: PIPERACILLIN /TAZOBACTAM 2.25 G VIAL IV ONE (03:32)
[2020-01-31] MEDS: ZOSYN IVPB 2.25 G in IV D5W 50ml IV SCH (03:59)
[2020-01-31] MEDS: INSULIN REGULAR, HUMAN 100 UNIT/ML 3 ML VIAL SQ PRN ×2 (04:13→22:24)
[2020-01-31 06:42] LABS: BASOPHILS % (AUTO) 0.2 % (0.0-2.0); EOSINOPHILS % (AUTO) 0.4 % (0.0-6.0); HEMATOCRIT 37 % (39-51); HEMOGLOBIN 12.5 g/dL (13.5-17.5); LYMPHOCYTES # (AUTO) 1.3 /CMM (0.8-4.8); LYMPHOCYTES % (AUTO) 9.9 % (20.0-44.0); MEAN CORPUSCULAR HGB CONC 34 g/dl (31.0-36.0); MEAN CORPUSCULAR VOLUME 85 fL (80-96); MONOCYTES # (AUTO) 0.4 /CMM (0.1-1.30); MONOCYTES % (AUTO) 3.3 % (2.0-12.0); NEUTROPHILS # (AUTO) 11.1 /CMM (1.8-8.9); NEUTROPHILS % (AUTO) 86.2 % (43.0-81.0); PLATELET COUNT (AUTO) 150 /CMM (150-450); WHITE BLOOD COUNT (AUTO) 12.9 K/uL (4.3-11.0)
--- NOTE | 2020-01-31 06:54 | NUR ---
RN CLOSING NOTES: Pt resting in bed, A&Ox4. On room air, O2 sat WNL. No respiratory distress noted. No acute changes noted during shift. On tele monitor showing SR. Pt now on isolation for r/o Covid-19. IV sites on left wrist #20 and right AC #20 patent and flushing. Dressings c/d/i. Has NS running at 50cc/hr. Awaiting swab results. Safety measures in place. Bed in lowest and locked position, side rails up x3, call light within reach. Will endorse to AM nurse for ROBINSON.
[2020-01-31] MEDS ORDERED: FEE PK DOSING 1 MIN EA MC ONE (07:11)
[2020-01-31 07:24] LABS: CALCIUM, SERUM 6.8 mg/dL (8.5-10.1); CREATININE 1.3 mg/dL (0.6-1.3); MAGNESIUM 1.7 mg/dL (1.8-2.4); PHOSPHORUS 1.4 mg/dL (2.5-4.9); POTASSIUM 3.5 mmol/L (3.5-5.1)
--- NOTE | 2020-01-31 08:00 | NUR ---
RN NOTES RECEIVED PATIENT IN THE ROOM A/O X3, NO ACUTE RESPIRATORY DISTRESS, V/S STABLE, BS-119 MG/DL NO COVERAGE GIVEN. PATIENT MINIMAL ASSIST, INCONTINENT USING DIAPER, INFUSING MG SULFATE 100 ML/HR ON RIGHT AC INTACT. ADMINISTERED SCHEDULED MEDICATION. PATIENT DROPLET ISOLATION. ASSIST PATIENT TURN AND REPOSITION Q 2 HR. CALL LIGHT WITHIN TO REACH. SAFETY PRECAUTION MAINTAINED ALL THE TIME.
[2020-01-31] MEDS ORDERED: IV NS 0.9% 1,000 ML IV PRN (08:16)
[2020-01-31] MEDS: Magnesium 1GM/D5W 100ML PREMIX 100 ML IV SCH ×2 (09:23→10:06)
[2020-01-31] MEDS: CLOPIDOGREL BISULFATE 75 MG TABLET PO SCH (09:23)
[2020-01-31] MEDS: NEUTRA PHOS 1 POWD.PACKET PO SCH ×2 (09:23→16:09)
[2020-01-31] MEDS: TAMSULOSIN 0.4 MG CAP.SR.24H PO SCH (09:23)
[2020-01-31] MEDS: PIPERACILLIN /TAZOBACTAM 3.375 G in IV D5W 100 ML IV SCH ×2 (10:04→16:50)
--- NOTE | 2020-01-31 12:17 | NUR ---
RN NOTES BS-99, PATIENT IN THER BED, INFUSING ZOSYN 25 ML/HR INTACT, WAS COMPLAINING OF SOB, APPLIED O2-2LNC. MONITORING FOR SAFETY.
--- NOTE | 2020-01-31 12:57 | NUR ---
rn notes patient has difficulty breathing, and wheezing, called Mark DNP for orders.
[2020-01-31] MEDS ORDERED: ALBUTEROL SULFATE INH 18 GM HFA.AER.AD IH PRN (14:30)
--- NOTE | 2020-01-31 16:13 | NUR ---
RN NOTES PATIENT HEART RATE IS 116, BP 138/100, PERLA DNP AWARE OF WAITING FOR RESPONSE.
--- NOTE | 2020-01-31 16:19 | NUR ---
LICENSE AND PERMIT SPECIALIST NOTE PER DR PERLA YATES , NOW NOTIFIED THAT WITH SEVERE WHEEZING AND SOB BREATHING TX DONE , WILL F\U
--- NOTE | 2020-01-31 16:23 | NUR ---
RN NOTES GET DNP PERLA ORDER STAT ABG, AND PRESALES ENGINEER CONSULT. ORDER TAKEN AND CARRIED OUT.
[2020-01-31 16:37] LABS: ABG BASE EXCESS -1.7 mmol/L; ABG OXYGEN SATURATION 93.6 % (92.0-98.5); ABG PCO2 30.4 mmHg (35.0-45.0); ABG PH 7.458 (7.350-7.450); ABG PO2 64.4 mmHg (75.0-100.0); AaDO2 99.4 mmHg; COHb 0.7 % (0.5-1.5); MetHb 0.4 % (0.0-1.5); O2Hb 92.6 % (94.0-97.0); SITE, ABG Right Radial
--- NOTE | 2020-01-31 17:25 | NUR ---
rn notes administered tylenol 650 mg po prn for generalized pain, patient was still complaining of difficulty breathing increase o2 with mask, continued monitoring.
--- NOTE | 2020-01-31 18:00 | NUR ---
rn notes medication were administered for pain effective, patient on mask 6l, quiet, keep hob elevated for sob, bs-241 mg/dl refused dinner no coverage given, administered scheduled medication, infusing Zofran 25 ml/hr on right ac area intact, and infusing ns at 200 ml/hr on left arm intact, call light within to reach, safety precaution maintained all the time. endorsed oncoming nurse follow plan of care.
--- NOTE | 2020-01-31 19:24 | NUR ---
CRACKING AND FANNING MACHINE OPERATOR OPENING NOTES PATIENT AWAKE IN ROOM. A/OX3. ON 6L SIMPLE MASK. CONTINUOS SPO2 READING 98%. TELE MONITOR READING SINUS TACH, HEART RATE 116. PATIENT DENIES ANY PAIN AT THIS TIME. IV ON RIGHT AC, SIZE 20, INTACT & PATENT WITH ZOSYN RUNNING AT 25 ML/HR. IV ON LEFT WRIST, SIZE 20, INTACT & PATENT, NS RUNNING AT 200 ML/HR. SAFETY MEASURES IN PLACE. BED LOCKED, ALARM ON, SIDE RAILS X2, CALL LIGHT WITHIN REACH. WILL CONTINUE TO MONITOR.
[2020-01-31] MEDS: methylPREDNISolone SOD SUCC 40 MG/ML VIAL IV SCH (20:45)
[2020-01-31] MEDS ORDERED: SIMVASTATIN 20 MG TABLET PO SCH (22:00)
[2020-01-31] MEDS: INSULIN GLARGINE, 100 UNIT/ML CARTRIDGE SQ SCH (22:23)
[2020-01-31] MEDS ORDERED: VANCOMYCIN 1 GM in IV D5W 250 ML IV SCH (23:00)
[2020-02-01] VITALS: BP 124/75
[2020-02-01] MEDS: BLOOD SUGAR DIAGNOSTIC 1 EACH STRIP IN SCH ×6 (01:04→20:58)
[2020-02-01] MEDS: PIPERACILLIN /TAZOBACTAM 3.375 G in IV D5W 100 ML IV SCH ×3 (01:46→18:20)
[2020-02-01] MEDS: INSULIN REGULAR, HUMAN 100 UNIT/ML 3 ML VIAL SQ PRN ×4 (02:21→20:58)
[2020-02-01 04:00] VITALS: BP 121/59
[2020-02-01] MEDS: methylPREDNISolone SOD SUCC 40 MG/ML VIAL IV SCH ×3 (05:43→20:44)
[2020-02-01 06:51] LABS: APPEARANCE,URINE TURBID (CLEAR); BILIRUBIN,URINE NEGATIVE (NEGATIVE); BLOOD, URINE SMALL Ery/uL (NEGATIVE); COLOR,URINE YELLOW (YELLOW); KETONES,URINE NEGATIVE (NEGATIVE); LEUKOCYTE ESTERASE ,URINE SMALL (NEGATIVE); NITRITE, URINE NEGATIVE (NEGATIVE); PH,URINE 5.5 (5.0-8.0); PROTEIN,URINE NEGATIVE (NEGATIVE); UGLUCOSE 100 MG/DL mg/dL (NEGATIVE); UROBILINOGEN,URINE 0.2 EU/dL (0.2)
--- NOTE | 2020-02-01 06:51 | NUR ---
CORPORATE SECURITY MANAGER CLOSING NOTES PATIENT SLEEPING IN BED, EASY TO AWAKEN. PATIENT REMAINED STABLE DURING ENTIRE SHIFT. ON 3L NC. NO S/S OF ACUTE RESPIRATORY DISTRESS AND NO C/O OF PAIN. TELE MONITOR READING SINUS RHYTHM, HEART RATE 77. PATIENT REMAINS IN DROPLET/CONTACT ISOLATION FOR R/O COVID 19. SAFETY MEASURES IN PLACE. WILL ENDORSE TO DAY SHIFT NURSE PLAN OF CARE.
[2020-02-01 06:54] LABS: BASOPHILS % (AUTO) 0.1 % (0.0-2.0); HEMATOCRIT 37 % (39-51); HEMOGLOBIN 12.4 g/dL (13.5-17.5); LYMPHOCYTES # (AUTO) 0.6 /CMM (0.8-4.8); LYMPHOCYTES % (AUTO) 4.3 % (20.0-44.0); MEAN CORPUSCULAR HGB CONC 34 g/dl (31.0-36.0); MEAN CORPUSCULAR VOLUME 85 fL (80-96); MONOCYTES # (AUTO) 0.2 /CMM (0.1-1.30); MONOCYTES % (AUTO) 1.2 % (2.0-12.0); NEUTROPHILS # (AUTO) 13.8 /CMM (1.8-8.9); NEUTROPHILS % (AUTO) 94.4 % (43.0-81.0); PLATELET COUNT (AUTO) 140 /CMM (150-450); RED BLOOD CELL COUNT(AUTO) 4.28 MIL/uL (4.5-6.0); WHITE BLOOD COUNT (AUTO) 14.6 K/uL (4.3-11.0)
[2020-02-01 07:02] LABS: BACTERIA,URINE Few /HPF (None Seen); SQUAMOUS EPITHELIAL CELL,UR Rare /HPF (None Seen); YEAST,URINE Few /HPF (None Seen)
[2020-02-01 07:17] LABS: ALBUMIN 2.2 g/dL (3.4-5.0); BILIRUBIN,TOTAL 0.6 mg/dL (0.2-1.0); CREATININE 1.3 mg/dL (0.6-1.3); PHOSPHORUS 3.3 mg/dL (2.5-4.9); POTASSIUM 3.7 mmol/L (3.5-5.1); TOTAL PROTEIN, SERUM 5.1 g/dL (6.4-8.2)
[2020-02-01 07:23] LABS: THYROID STIMULATING HORMONE 0.663 uIU/mL (0.358-3.74); URIC ACID 2.1 mg/dL (2.6-7.2)
[2020-02-01 07:25] LABS: CREATININE, URINE 62.6 MG/DL (30.0-125.0); URINE TOTAL PROTEIN 43.3 mg/dL (0-11.9)
--- NOTE | 2020-02-01 07:28 | NUR ---
rn opening notes Patient received on 3L nasal cannula, no sob noted, patient denies pain at this time. Patient remains on tele in the SR 90's. R ac 20 HL and L wrist 20 with NS @ 75 ml per hour at this time. Patient remains on droplet/contact isolation for R/O menard virus. Bed at the lowest setting, call light within reach, side rails up x2.
[2020-02-01 07:34] LABS: BAND % (MANUAL) 4 % (0.0-5.0); LYMPHOCYTES % (MANUAL) 6 % (16-48); MONOCYTES % (MANUAL) 2 % (0-11.0); MYELOCYTES % 3 % (0-0); NEUTROPHILS % (MANUAL) 85 (42-76)
[2020-02-01 07:46] LABS: EOSINOPHIL,URINE None Seen
[2020-02-01 08:00] VITALS: BP 111/62
[2020-02-01] MEDS: TAMSULOSIN 0.4 MG CAP.SR.24H PO SCH (08:03)
[2020-02-01] MEDS: FLUCONAZOLE (100 MG) 100 MG TABLET PO SCH (08:03)
[2020-02-01] MEDS: CLOPIDOGREL BISULFATE 75 MG TABLET PO SCH (08:03)
[2020-02-01] MEDS: ENOXAPARIN SODIUM 40 MG/0.4 ML DISP.SYRIN SQ SCH (10:01)
[2020-02-01 12:00] VITALS: BP_SYST 111; BP_SYST 121; BP_DIAS 62; BP_DIAS 67
[2020-02-01] MEDS ORDERED: ALBUTEROL SULFATE INH 18 GM HFA.AER.AD IH SCH (14:00)
[2020-02-01 16:00] VITALS: BP_SYST 121; BP_SYST 132; BP_DIAS 67; BP_DIAS 75
[2020-02-01] MEDS: VANCOMYCIN 0.75 GM in IV D5W 250 ML IV SCH (17:00)
--- NOTE | 2020-02-01 18:06 | NUR ---
rn closing notes Patient remains on 4 L nasal cannula with no sob noted, blood sugar checks done Q4 and all coverage given. R ac 20 HL and L wrist 20 at this time. NO IVF ordered. LABS am, continue hospitalization, accu checks q4. Patient remains to be ruled out for ELLSWORTH VIRUS. Awaiting for results. Bed at the lowest setting, call light within reach, side rails up x2. Will give report to NOC RN for ROBINSON bedside.
[2020-02-01] MEDS ORDERED: CEFEPIME 1 GM in IV D5W 50 ML IV SCH (19:30)
--- NOTE | 2020-02-01 19:57 | NUR ---
RN OPENING NOTES: Received report from Yaritza BOWERS. Pt resting in bed, A&Ox3. On isolation for r/o Covid-19. On 4L NC tolerating well, no respiratory distress noted. On tele monitor showing SR. Has IV site on right AC #20 and left wrist. Lines flushed and patent. Dressings c/d/i. No pain noted at this time. Safety measures in place. Bed in lowest and locked position, side rails up x3, call light within reach. Will continue to monitor.
[2020-02-01 20:00] VITALS: BP 128/70
--- NOTE | 2020-02-01 20:04 | NUR ---
RN NOTE: Spoke w/ Jennifer in pharmacy to verify dose of maxipime at 1930. Stated she has a lot of orders she is working on now.
[2020-02-01] MEDS ORDERED: CEFEPIME 2 GM in IV D5W 100 ML IV SCH (21:00)
[2020-02-01] MEDS ORDERED: PIPERACILLIN /TAZOBACTAM 3.375 G in IV D5W 50 ML IV SCH (21:00)
[2020-02-01] MEDS: MUPIROCIN OINT 2% 22 GM TUBE SCH (21:11)
[2020-02-01] MEDS: INSULIN GLARGINE, 100 UNIT/ML CARTRIDGE SQ SCH (22:00)
--- NOTE | 2020-02-01 23:12 | NUR ---
RN NOTE: Held 2200 dose of Lantus BS 95. Charge nurse aware.
[2020-02-02] VITALS (7 sets, daily range): BP systolic 118–132; BP diastolic 62–83
[2020-02-02] MEDS: BLOOD SUGAR DIAGNOSTIC 1 EACH STRIP IN SCH ×6 (01:15→20:48)
[2020-02-02] MEDS: PIPERACILLIN /TAZOBACTAM 3.375 G in IV D5W 100 ML IV SCH ×3 (01:40→17:01)
[2020-02-02] MEDS: VANCOMYCIN 0.75 GM in IV D5W 250 ML IV SCH ×2 (04:37→15:17)
[2020-02-02] MEDS: INSULIN REGULAR, HUMAN 100 UNIT/ML 3 ML VIAL SQ PRN ×5 (05:07→20:49)
--- NOTE | 2020-02-02 06:05 | NUR ---
RN NOTE: Pt noted to have pulled out IV site on right AC. No infiltration noted. Attempted to explain and restart a new IV but pt refused and stated "shut up and leave me alone'".
--- NOTE | 2020-02-02 07:00 | NUR ---
RN CLOSING NOTES: Pt resting in bed, A&Ox3. On 4L NC tolerating well. Nor respiratory distress or acute changes noted during shift. Pt on isolation for r/o covid-19. On 4L/min NC tolerating well. On tele monitor showing SR. Pulled out IV site on right AC. IV site on left wrist #20 patent and flushed. Dressing c/d/i. All meds administered as ordered. Safety measures in place. Bed in lowest and locked position, side rails up x3, call light within reach. Will endorse to AM nurse for ROBINSON.
[2020-02-02 07:01] LABS: CALCIUM, SERUM 7.3 mg/dL (8.5-10.1); CARBON DIOXIDE 24 mmol/L (21-32); CHLORIDE 99 mmol/L (98-107); CREATININE 1.2 mg/dL (0.6-1.3); GLUCOSE 246 mg/dL (74-106); POTASSIUM 3.5 mmol/L (3.5-5.1); SODIUM SERUM 133 mmol/L (136-145); UREA NITROGEN, BLOOD 21 mg/dL (7-18)
[2020-02-02 07:06] LABS: PTH, INTACT 96 pg/mL (15-65)
--- NOTE | 2020-02-02 08:00 | NUR ---
SHIRT OPERATOR NOTES PT IN BED WITH O2 VIA NC 4LPM, NO SOB. TOLERATING WELL. A/OX3 NAME, PLACE, AND TIME. ON TELE MONITOR WITH SR. IV LINE ON L WRIST IS PATENT, FLUSHES WELL. ON ISO FOR R/O COVID-19. INCONTINENT OF BM WITH A DIAPER ON. BED LOCKED AND IN LOWEST POSITION. ALL NEEDS ATTENDED. SAFETY MEASURES IN PLACE. WILL CONT TO MONITOR
--- NOTE | 2020-02-02 08:20 | NUR ---
TERMITE EXTERMINATOR HELPER NOTES VENTORIL ADMINISTERED PRESCRIBED, LABEL UNABLE TO SCAN. SPOKE WITH PHARMACY TO OBTAIN A NEW LABEL. BED LOCKED IN LOWEST POSITION, WILL CONT TO MONITOR
[2020-02-02] MEDS: FLUCONAZOLE (100 MG) 100 MG TABLET PO SCH (08:29)
[2020-02-02] MEDS: TAMSULOSIN 0.4 MG CAP.SR.24H PO SCH (08:29)
[2020-02-02 08:30] LABS: *SPE A/G RATIO 1.1 (0.7-1.7); *SPE ALBUMIN 2.4 g/dL (2.9-4.4); *SPE ALPHA-1-GLOBULIN 0.2 g/dL (0.0-0.4); *SPE ALPHA-2-GLOBULIN 0.8 g/dL (0.4-1.0); *SPE BETA GLOBULIN 0.8 g/dL (0.7-1.3); *SPE GLOBULIN, TOTAL 2.2 g/dL (2.2-3.9); *SPE M-SPIKE Not Observed g/dL (Not Observed); *SPEGAMMA GLOBULIN 0.4 g/dL (0.4-1.8)
[2020-02-02] MEDS: CLOPIDOGREL BISULFATE 75 MG TABLET PO SCH (08:30)
[2020-02-02] MEDS: methylPREDNISolone SOD SUCC 40 MG/ML VIAL IV SCH ×2 (08:30→20:48)
[2020-02-02] MEDS: ENOXAPARIN SODIUM 40 MG/0.4 ML DISP.SYRIN SQ SCH (08:32)
[2020-02-02] MEDS: MUPIROCIN OINT 2% 22 GM TUBE SCH ×2 (08:52→20:44)
--- NOTE | 2020-02-02 11:30 | NUR ---
STUDENT ACCOUNTS COORDINATOR NOTES PER DR. CARABALLO VENTORIL DOSE CHANGED FROM SCHEDULED TO PRN. PT IS RESTING IN BED. NO SIGNS OF DISTRESS NOTED. ON NC O2 ORDERED, ELVIS WELL. SAFETY MEASURES IN PLACE. BED LOCKED AND IN LOWEST POSITION. ALL NEEDS MET. WILL CONT TO MONITOR
[2020-02-02] MEDS ORDERED: ALBUTEROL SULFATE INH 18 GM HFA.AER.AD IH PRN (12:00)
--- NOTE | 2020-02-02 19:18 | NUR ---
RN OPENING NOTES: Received pt resting in bed, A&Ox3. On isolation for MRSA of nares and r/o Covid-19. On 4L NC tolerating well. No respiratory distress noted. On tele monitor reading SR. Has IV site on left wrist #20, patent and flushed. Dressing c/d/i. No pain noted at this time. Safety measures in place. Bed in lowest and locked position, side rails up x3, call light within reach. Will continue to monitor.
[2020-02-02] MEDS ORDERED: LEVOFLOXACIN (500MG) 500 MG TABLET PO SCH (20:00)
[2020-02-02] MEDS: DOXYCYCLINE HYCLATE (100 MG) 100 MG TABLET PO SCH (20:47)
[2020-02-02] MEDS: LEVOFLOXACIN (250MG) 250 MG TABLET PO SCH (20:48)
[2020-02-02] MEDS: INSULIN GLARGINE, 100 UNIT/ML CARTRIDGE SQ SCH (21:57)
[2020-02-03] VITALS: BP 154/81
[2020-02-03] MEDS: BLOOD SUGAR DIAGNOSTIC 1 EACH STRIP IN SCH ×6 (00:28→21:05)
[2020-02-03 04:00] VITALS: BP 142/84
[2020-02-03 06:21] LABS: BASOPHILS # (AUTO) 0.1 /CMM (0.0-0.2); BASOPHILS % (AUTO) 0.4 % (0.0-2.0); EOSINOPHILS % (AUTO) 0.1 % (0.0-6.0); HEMATOCRIT 37 % (39-51); HEMOGLOBIN 12.7 g/dL (13.5-17.5); LYMPHOCYTES # (AUTO) 0.6 /CMM (0.8-4.8); LYMPHOCYTES % (AUTO) 3.4 % (20.0-44.0); MEAN CORPUSCULAR HGB CONC 35 g/dl (31.0-36.0); MEAN CORPUSCULAR VOLUME 85 fL (80-96); MONOCYTES # (AUTO) 0.5 /CMM (0.1-1.30); MONOCYTES % (AUTO) 2.6 % (2.0-12.0); NEUTROPHILS # (AUTO) 16.4 /CMM (1.8-8.9); NEUTROPHILS % (AUTO) 93.5 % (43.0-81.0); PLATELET COUNT (AUTO) 146 /CMM (150-450); RED BLOOD CELL COUNT(AUTO) 4.34 MIL/uL (4.5-6.0); WHITE BLOOD COUNT (AUTO) 17.5 K/uL (4.3-11.0)
[2020-02-03 06:41] LABS: BAND % (MANUAL) 2 % (0.0-5.0); LYMPHOCYTES % (MANUAL) 2 % (16-48); METAMYELOCYTES % 1 % (0-0); MONOCYTES % (MANUAL) 4 % (0-11.0); MYELOCYTES % 1 % (0-0); NEUTROPHILS % (MANUAL) 90 (42-76)
[2020-02-03 06:51] LABS: CALCIUM, SERUM 7.6 mg/dL (8.5-10.1); CREATININE 1.3 mg/dL (0.6-1.3); POTASSIUM 4.1 mmol/L (3.5-5.1)
--- NOTE | 2020-02-03 06:52 | NUR ---
RN CLOSING NOTES: Pt resting in bed, A&Ox3. On isolation for MRSA of nares and r/o Covid-19. On 4L NC tolerating well. No respiratory distress noted. No acute changes noted during shift. On tele monitor showing SR. Has IV site on left wrist #20 patent and flushed. Dressing c/d/i. Safety measures in place. Bed in lowest and locked position, side rails up x3, call light within reach. Will endorse to AM nurse for ROBINSON.
--- NOTE | 2020-02-03 07:30 | NUR ---
RN OPENING NOTES RECEIVED PATIENT IN STABLE CONDITION RESTING IN BED, A/O X3, ON ISOLATION FOR RO COVID. ISOLATION IS OBSERVED. ON 4L NC TOLERATING WELL, SATURATING WELL, NO S/S OF RESPIRATORY DISTRESS. ON TELE MONITOR WITH SR. IV ON LEFT WRIST INTACT PATENT AND FLUSHED WELL. PATIENT IS CLEAN AND DRY, NO COMPLAINTS OF PAIN OR DISTRESS AT THIS TIME, SAFETY IS MAINTAINED, CALL LIGHT WITHIN REACH, WILL CONTINUE TO MONITOR.
[2020-02-03 08:00] VITALS: BP 139/78
[2020-02-03] MEDS: ENOXAPARIN SODIUM 40 MG/0.4 ML DISP.SYRIN SQ SCH (08:13)
[2020-02-03] MEDS: methylPREDNISolone SOD SUCC 40 MG/ML VIAL IV SCH ×2 (08:14→21:04)
[2020-02-03] MEDS: CLOPIDOGREL BISULFATE 75 MG TABLET PO SCH (08:15)
[2020-02-03] MEDS: TAMSULOSIN 0.4 MG CAP.SR.24H PO SCH (08:15)
[2020-02-03] MEDS: FLUCONAZOLE (100 MG) 100 MG TABLET PO SCH (08:15)
[2020-02-03] MEDS: MUPIROCIN OINT 2% 22 GM TUBE SCH ×2 (08:31→21:05)
[2020-02-03 12:00] VITALS: BP 132/73
[2020-02-03] MEDS: INSULIN REGULAR, HUMAN 100 UNIT/ML 3 ML VIAL SQ PRN ×2 (13:13→17:44)
[2020-02-03 16:00] VITALS: BP 157/94
[2020-02-03] MEDS ORDERED: FLUCONAZOLE (100 MG) 100 MG TABLET PO SCH (18:30)
--- NOTE | 2020-02-03 19:30 | NUR ---
TELE1 RN NOTES RECEIVED RESTING COMFORTABLY ON BED A/OX 3,BREATHING REGULAR,NOT IN ANY FORM OF DISTRESS.O2 IN USED AT 2-4/NC,O2 SAT 98%.SALINE LOCK LEFT WRIST #20 INTACT PATENT.ISOLATION PRECAUTION,RULING OUT COVID-19.CALL LIGHT IN REACH,NEEDS ANTICIPATED.
[2020-02-03] MEDS: DOXYCYCLINE HYCLATE (100 MG) 100 MG TABLET PO SCH (19:47)
[2020-02-03 20:00] VITALS: BP 121/78
[2020-02-03] MEDS ORDERED: DEXTROSE 50%-WATER 50 ML DISP.SYRIN IV PRN (20:00)
--- NOTE | 2020-02-03 20:18 | NUR ---
RN CLOSING NOTES PATIENT IN STABLE CONDITION, NO ACUTE CHANGES DURING MY SHIFT. ALL SCHEDULED MEDICATIONS GIVEN ON TIME. ALL PATIENT NEEDS MET, ISOLATION WAS OBSERVED, SAFETY MAINTAINED, CALL LIGHT WITHIN REACH, ENDORSED TO TITLE MANAGER NURSE TO CONTINUE CARE.
[2020-02-03] MEDS: INSULIN GLARGINE, 100 UNIT/ML CARTRIDGE SQ SCH (21:29)
[2020-02-03] MEDS: *INSULIN REGULAR(HUMULIN R)HUM 100 UNIT/ML VIAL SQ PRN (21:30)
--- NOTE | 2020-02-03 22:00 | NUR ---
TELE1 RN NOTES ACCU-CHECK BLOOD SUGAR CHECK 166 COVERED WITH HUMULIN R 3 UNITS PER SLIDING SCALE,ALONG WITH LANTUS 15 UNITS SCHEDULED Q HS,SNACKS PROVIDED AT BEDSIDE.
[2020-02-04] VITALS (9 sets, daily range): BP systolic 118–157; BP diastolic 80–92
--- NOTE | 2020-02-04 01:15 | NUR ---
TELE1 RN NOTES PATIENT REFUSED TELE MONITOR THIS TIME.O2 SAT 97% ON 3L/NC.WILL CONTINUE TO MONITOR .
--- NOTE | 2020-02-04 06:15 | NUR ---
TELE1 RN NOTES ON BED A/O X3,SLEPT WITH INTERVALS,,COVID 19 TEST PENDING RESULT.SR-78 ON TELE MONITOR.IN NO ACUTE DISTRESS.CALL LIGHT IN REACH,NEEDS ATTENDED.
[2020-02-04] MEDS: CLOPIDOGREL BISULFATE 75 MG TABLET PO SCH (08:13)
[2020-02-04] MEDS: FLUCONAZOLE (100 MG) 100 MG TABLET PO SCH (08:13)
[2020-02-04] MEDS: TAMSULOSIN 0.4 MG CAP.SR.24H PO SCH (08:13)
[2020-02-04] MEDS: methylPREDNISolone SOD SUCC 40 MG/ML VIAL IV SCH (08:13)
[2020-02-04] MEDS: MUPIROCIN OINT 2% 22 GM TUBE SCH ×2 (08:42→20:47)
[2020-02-04] MEDS: BLOOD SUGAR DIAGNOSTIC 1 EACH STRIP IN SCH ×4 (08:42→23:26)
[2020-02-04] MEDS: ENOXAPARIN SODIUM 40 MG/0.4 ML DISP.SYRIN SQ SCH (08:43)
[2020-02-04] MEDS: INSULIN REGULAR, HUMAN 100 UNIT/ML 3 ML VIAL SQ PRN ×3 (08:44→17:59)
[2020-02-04 10:12] LABS: BASOPHILS # (AUTO) 0.1 /CMM (0.0-0.2); BASOPHILS % (AUTO) 0.5 % (0.0-2.0); EOSINOPHILS % (AUTO) 0.1 % (0.0-6.0); HEMATOCRIT 44 % (39-51); HEMOGLOBIN 14.5 g/dL (13.5-17.5); LYMPHOCYTES # (AUTO) 0.6 /CMM (0.8-4.8); LYMPHOCYTES % (AUTO) 3.8 % (20.0-44.0); MEAN CORPUSCULAR HGB CONC 33 g/dl (31.0-36.0); MEAN CORPUSCULAR VOLUME 87 fL (80-96); MONOCYTES # (AUTO) 0.4 /CMM (0.1-1.30); MONOCYTES % (AUTO) 2.6 % (2.0-12.0); NEUTROPHILS # (AUTO) 13.7 /CMM (1.8-8.9); PLATELET COUNT (AUTO) 170 /CMM (150-450); RED BLOOD CELL COUNT(AUTO) 5.03 MIL/uL (4.5-6.0); WHITE BLOOD COUNT (AUTO) 14.7 K/uL (4.3-11.0)
[2020-02-04 10:21] LABS: CALCIUM, SERUM 8.3 mg/dL (8.5-10.1); CARBON DIOXIDE 30 mmol/L (21-32); CHLORIDE 99 mmol/L (98-107); CREATININE 1.2 mg/dL (0.6-1.3); GLUCOSE 162 mg/dL (74-106); POTASSIUM 3.6 mmol/L (3.5-5.1); SODIUM SERUM 136 mmol/L (136-145); UREA NITROGEN, BLOOD 23 mg/dL (7-18)
--- NOTE | 2020-02-04 18:42 | NUR ---
RN NOTE THE PATIENT IS ALERT AND ORIENTED X3. RECEIVING OXYGEN AT 3L/MIN VIA NASAL CANNULA AND SATURATION IS AT 98%. THE PATIENT DENIES SOB. RESPIRATION REGULAR AND UNLABORED. DENIES PAIN. THE PATIENT IS IN NO APPARENT DISTRESS. TELE BOX READING IS SR 83. LEFT WRIST G 20 PATENT AND SALINE LOCKED. PRECAUTIONS PER POLICY FOR COVID-19 AND MRSA OF NARES DONE BED LOW AND LOCKED. SIDE RAILS UP X3. CALL LIGHT WITHIN REACH. WILL ENDORSE TO MUCK BOSS.
--- NOTE | 2020-02-04 20:16 | NUR ---
BRIDGETT/RN AT INITIAL ROUNDING AT 1930, PATIENT WAS IN BED AWAKE, ALERT, ORIENTED, COMFORTABLE, NO C/O PAIN, NO DISTRESS NOTED, CALL LIGHT IN REACH. WILL MONITOR.
[2020-02-04] MEDS: LEVOFLOXACIN (250MG) 250 MG TABLET PO SCH (20:40)
[2020-02-04] MEDS: DOXYCYCLINE HYCLATE (100 MG) 100 MG TABLET PO SCH (20:40)
[2020-02-04] MEDS: *INSULIN REGULAR(HUMULIN R)HUM 100 UNIT/ML VIAL SQ PRN (23:28)
[2020-02-04] MEDS: INSULIN GLARGINE, 100 UNIT/ML CARTRIDGE SQ SCH (23:29)
[2020-02-05] VITALS: BP 142/71
[2020-02-05 04:00] VITALS: BP 152/86
--- NOTE | 2020-02-05 06:41 | NUR ---
BRIDGETT/RN PATIENT IS SLEEPING, APPEAR COMFORTABLE, NO SIGNS OF DISTRESS NOTED, CALL LIGHT IN REACH, ALL NEEDS ATTENDED AT THIS TIME, WILL CONTINUE TO MONITOR. REFUSED MORNING CARE AT 0500 PER SNOW RANGER.
[2020-02-05] MEDS: BLOOD SUGAR DIAGNOSTIC 1 EACH STRIP IN SCH ×2 (07:48→11:35)
[2020-02-05 08:00] VITALS: BP_SYST 155; BP_SYST 168; BP_DIAS 86; BP_DIAS 93
[2020-02-05] MEDS ORDERED: FLUC100T8 PO (08:12)
[2020-02-05] MEDS ORDERED: DOXY100T2 PO (08:12)
[2020-02-05] MEDS ORDERED: Levofloxacin (250MG) PO (08:12)
[2020-02-05] MEDS ORDERED: Insulin Glargine,Hum SQ (08:12)
[2020-02-05] MEDS ORDERED: PRED20TA PO (08:12)
[2020-02-05] MEDS ORDERED: methylPREDNISolone SOD SUCC 40 MG/ML VIAL IV SCH (09:00)
[2020-02-05] MEDS: FLUCONAZOLE (100 MG) 100 MG TABLET PO SCH (09:04)
[2020-02-05] MEDS: CLOPIDOGREL BISULFATE 75 MG TABLET PO SCH (09:04)
[2020-02-05] MEDS: TAMSULOSIN 0.4 MG CAP.SR.24H PO SCH (09:05)
[2020-02-05] MEDS: MUPIROCIN OINT 2% 22 GM TUBE SCH (09:05)
[2020-02-05] MEDS: ENOXAPARIN SODIUM 40 MG/0.4 ML DISP.SYRIN SQ SCH (09:06)
[2020-02-05] MEDS: INSULIN REGULAR, HUMAN 100 UNIT/ML 3 ML VIAL SQ PRN (11:37)
[2020-02-05 11:43] LABS: BASOPHILS % (AUTO) 0.1 % (0.0-2.0); CALCIUM, SERUM 8.6 mg/dL (8.5-10.1); CREATININE 1.3 mg/dL (0.6-1.3); EOSINOPHILS % (AUTO) 0.1 % (0.0-6.0); HEMATOCRIT 49 % (39-51); HEMOGLOBIN 16.4 g/dL (13.5-17.5); LYMPHOCYTES # (AUTO) 0.7 /CMM (0.8-4.8); LYMPHOCYTES % (AUTO) 3.8 % (20.0-44.0); MEAN CORPUSCULAR HGB CONC 34 g/dl (31.0-36.0); MEAN CORPUSCULAR VOLUME 87 fL (80-96); MONOCYTES # (AUTO) 0.5 /CMM (0.1-1.30); MONOCYTES % (AUTO) 2.9 % (2.0-12.0); NEUTROPHILS % (AUTO) 93.1 % (43.0-81.0); PLATELET COUNT (AUTO) 161 /CMM (150-450); POTASSIUM 3.6 mmol/L (3.5-5.1); WHITE BLOOD COUNT (AUTO) 17.2 K/uL (4.3-11.0)
[2020-02-05 12:00] VITALS: BP 138/78
[2020-02-05 12:20] LABS: BAND % (MANUAL) 3 % (0.0-5.0); LYMPHOCYTES % (MANUAL) 6 % (16-48); METAMYELOCYTES % 2 % (0-0); MONOCYTES % (MANUAL) 4 % (0-11.0); MYELOCYTES % 2 % (0-0); NEUTROPHILS % (MANUAL) 82 (42-76); PROMYELOCYTES % 1 % (0-0)
--- NOTE | 2020-02-05 14:57 | NUR ---
MS/COLLISION REPAIR TECHNICIAN NOTES EMT ARRIVED AT THE UNIT TO WEB MARKETING ANALYST PATIENT. ALL DISCHARGE PAPERS WAS SIGNED AND GIVEN TO THE EMT. REPORT WAS ALSO GIVEN TO RADHA MONCADA AT [facility] AND TO EMT. FINAL SKIN ASSESSMENT WAS REFUSED BY THE PATIENT. ALL BELONGINGS WAS SIGNED AND GIVEN WELL ALONG WITH IS [place] ID. WITNESSED BY EMT. PATIENT WAS PLACED ON THE GURNEY AND LEFT THE HOSPITAL IN STABLE CONDITION.
== END 2020-02-05 14:51 | DRG 871 ==
LOC: ER 18:44 → TELE-TD 21:12 → TELE1 01-31 10:02 → TELE-TD 02-01 02:46 → TELE1 02-02 11:30 → MEDSG1 02-05 08:06
PROVIDERS: ADMIT Registered Nurse; ATTEND Family Medicine
DX: A41.9 Sepsis, unspecified organism (principal); G93.41 Metabolic encephalopathy; N17.0 Acute kidney failure with tubular necrosis; J96.21 Acute and chronic respiratory failure with hypoxia; I21.A1 Myocardial infarction type 2; J15.6 Pneumonia due to other Gram-negative bacteria; J15.9 Unspecified bacterial pneumonia; B37.49 Other urogenital candidiasis; E44.0 Moderate protein-calorie malnutrition; E87.1 Hypo-osmolality and hyponatremia; I13.0 Hypertensive heart and chronic kidney disease with heart failure and stage 1 through stage 4 chronic kidney disease, or unspecified chronic kidney disease; J44.0 Chronic obstructive pulmonary disease with (acute) lower respiratory infection; N17.9 Acute kidney failure, unspecified; E87.2 Acidosis; J98.11 Atelectasis; J44.1 Chronic obstructive pulmonary disease with (acute) exacerbation; E83.39 Other disorders of phosphorus metabolism; N18.9 Chronic kidney disease, unspecified; E83.42 Hypomagnesemia; E86.0 Dehydration; E11.22 Type 2 diabetes mellitus with diabetic chronic kidney disease; Z86.73 Personal history of transient ischemic attack (TIA), and cerebral infarction without residual deficits; E11.65 Type 2 diabetes mellitus with hyperglycemia; K21.9 Gastro-esophageal reflux disease without esophagitis; Z88.1 Allergy status to other antibiotic agents; Z79.51 Long term (current) use of inhaled steroids; Z79.899 Other long term (current) drug therapy; Z79.02 Long term (current) use of antithrombotics/antiplatelets; E78.5 Hyperlipidemia, unspecified; F03.90 Unspecified dementia, unspecified severity, without behavioral disturbance, psychotic disturbance, mood disturbance, and anxiety; G89.29 Other chronic pain; I25.2 Old myocardial infarction; I70.0 Atherosclerosis of aorta; N40.0 Benign prostatic hyperplasia without lower urinary tract symptoms; Z86.718 Personal history of other venous thrombosis and embolism; Z86.711 Personal history of pulmonary embolism; Z87.891 Personal history of nicotine dependence; Z91.81 History of falling; Z86.14 Personal history of Methicillin resistant Staphylococcus aureus infection; Y95 Nosocomial condition; I25.10 Atherosclerotic heart disease of native coronary artery without angina pectoris; E86.1 Hypovolemia; I50.9 Heart failure, unspecified; T38.0X5A Adverse effect of glucocorticoids and synthetic analogues, initial encounter; Y92.9 Unspecified place or not applicable
CPT/HCPCS: 36415; 36600; 70450-TC; 71045-TC; 76770-TC; 80048-TC; 80053-TC; 80061-TC; 80076-TC; 80202-TC; 81000-TC; 82140-TC; 82550-TC; 82570-TC; 82803-TC; 82962-TC; 83605-TC; 83735-TC; 83935-TC; 83970; 84100-TC; 84155; 84155-TC; 84165; 84300-TC; 84443-TC; 84484-TC; 84550-TC; 85025-TC; 85730-TC; 87040-TC; 87081-TC; 87086-TC; 93307-TC; 93880-TC; 93970-TC; 94799-TC; A4216; G0378; G0480; J0692; J1450; J1650; J1815; J2543; J2920; J3370; J3475; J7030; J7040; J7050; J7060; U0002

== ENCOUNTER 2020-09-05 13:20 | Inpatient (IN) | payer MEDICARE, OTHER ==
[~2020-09-05] VITALS: Ht 170.2 cm; Wt 55.3 kg
[~2020-09-05 13:20] MED LIST changes: +DOXY100T2 PO; +FLUC100T8 PO; +Insulin Glargine,Hum SQ; +Levofloxacin (250MG) PO; +PRED20TA PO
--- NOTE | 2020-09-05 13:30 | NUR ---
BIBRA39 FROM HOME. WEAKNESS D/T UNABLE TO EAT AND DRINK. CANT PREPARE HIS OWN FOOD, TO ER BED 11, HOOKED TO MONITOR, CHANGED TO HOSP GOWN, WARM BLANKET PROVIDED, PATIENT AAO x 3, ON 3LPM O2 VIA NC. NOTED WITH WHEEZING. AWAITING MD CARMICHAEL
--- NOTE | 2020-09-05 13:39 | NUR ---
DR ISAAC AT BEDSIDE
--- NOTE | 2020-09-05 14:08 | NUR ---
PICKED UP BY TEXTBOOK ASSOCIATELUCERO GORDON FOR CT SCAN
[2020-09-05 15:19] LABS: BASOPHILS % (AUTO) 0.1 % (0.0-2.0); HEMOGLOBIN 16.1 g/dL (13.5-17.5)
--- NOTE | 2020-09-05 15:21 | NUR ---
FOLLOWED UP MAIN AND STAT LAB FOR LAB RESULTS
[2020-09-05 15:31] LABS: HEMATOCRIT 49 % (39-51); LYMPHOCYTES # (AUTO) 1.4 /CMM (0.8-4.8); MEAN CORPUSCULAR HGB CONC 33 g/dl (31.0-36.0); MEAN CORPUSCULAR VOLUME 81 fL (80-96); MONOCYTES # (AUTO) 0.8 /CMM (0.1-1.30); MONOCYTES % (AUTO) 4.5 % (2.0-12.0); NEUTROPHILS # (AUTO) 14.8 /CMM (1.8-8.9); NEUTROPHILS % (AUTO) 87.4 % (43.0-81.0); PLATELET COUNT (AUTO) 203 /CMM (150-450); RED BLOOD CELL COUNT(AUTO) 6.09 MIL/uL (4.5-6.0)
[2020-09-05 15:32] LABS: ALCOHOL, BLOOD < 3 mg/dL (0-0); PHOSPHORUS 3.3 mg/dL (2.5-4.9)
[2020-09-05 15:33] LABS: CALCIUM, SERUM 9.7 mg/dL (8.5-10.1); CARBON DIOXIDE 25 mmol/L (21-32); CHLORIDE 98 mmol/L (98-107); CREATININE 1.2 mg/dL (0.6-1.3); GLUCOSE 113 mg/dL (74-106); POTASSIUM 3.4 mmol/L (3.5-5.1); SODIUM SERUM 139 mmol/L (136-145); UREA NITROGEN, BLOOD 20 mg/dL (7-18)
[2020-09-05 15:47] LABS: ALANINE AMINOTRANSFERASE 43 U/L (12-78); ALBUMIN 4.7 g/dL (3.4-5.0); ALKALINE PHOSPHATASE 186 U/L (46-116); ASPARTATE AMINOTRANSFERASE 33 U/L (15-37); BILIRUBIN,DIRECT 0.3 mg/dL (0.0-0.2); BILIRUBIN,TOTAL 0.9 mg/dL (0.2-1.0); TOTAL PROTEIN, SERUM 9.2 g/dL (6.4-8.2)
[2020-09-05] MEDS ORDERED: VANCOMYCIN 1 GM in IV D5W 250 ML IV ONE (16:30)
[2020-09-05] MEDS ORDERED: AZTREONAM 1 G in IV NS 0.9% 100 ML IV ONE (16:30)
[2020-09-05] MEDS ORDERED: POTASSIUM CHLORIDE 20 MEQ TAB.PRT.SR PO ONE (16:30)
--- NOTE | 2020-09-05 16:40 | NUR ---
RESISTANCE UPON INSERTING BAPTISTE CATHETER, BACKFLOW OF BLOOD NOTED. PULLED OUT BAPTISTE. MADE MD AWARE
--- NOTE | 2020-09-05 16:51 | NUR ---
RAPID COVID SWAB DONE AND SENT TO LAB
[2020-09-05] MEDS ORDERED: MAGNESIUM HYDROXIDE 30 ML UDC PO PRN (17:00)
[2020-09-05] MEDS ORDERED: ONDANSETRON HCL/PF 4 MG/2 ML VIAL IVP PRN (17:00)
[2020-09-05] MEDS ORDERED: MORPHINE SULFATE INJ 2 MG/ML DISP.SYRIN IV PRN (17:00)
[2020-09-05] MEDS ORDERED: MAG HYDROX/AL HYDROX/SIMETH 30 ML UDC PO PRN (17:00)
[2020-09-05] MEDS ORDERED: Z GUARD REMEDY 2 OZ OINT TP PRN (17:00)
[2020-09-05] MEDS ORDERED: ACETAMINOPHEN 325 MG TABLET PO PRN (17:00)
[2020-09-05] MEDS ORDERED: HYDROCODONE/APAP 5/325MG TABLET PO PRN (17:00)
[2020-09-05] MEDS ORDERED: TEMAZEPAM 15 MG CAPSULE PO PRN (17:00)
[2020-09-05 17:27] LABS: C-REACTIVE PROTEIN 3.1 mg/dL (0.0-0.9)
[2020-09-05] MEDS ORDERED: ALBUTEROL FS 2.5 MG/3 ML VIAL.NEB NEB PRN (17:30)
--- NOTE | 2020-09-05 18:13 | NUR ---
FOLLOWED UP RAPID COVID RESULT WITH MAIN LAB
--- NOTE | 2020-09-05 19:12 | NUR ---
REPORT GIVEN TO AMY GARCIA FOR ROBINSON
--- NOTE | 2020-09-05 19:48 | NUR ---
PER RN SHAKE MAKER PT WILL BE GOING TO 113-1.
--- NOTE | 2020-09-05 20:04 | NUR ---
SPOKE TO MD REGARDING BP OF , STATED IT IS OKAY.
--- NOTE | 2020-09-05 20:06 | NUR ---
TRIED TO GIVE REPORT, NURSE UNAVAILABLE. WILL CALL BACK LATER.
--- NOTE | 2020-09-05 20:50 | NUR ---
REPORT GIVEN, PT TRANSFERED PER ACLS PROTOCOL
[2020-09-05 21:00] VITALS: BP 183/99
[2020-09-05] MEDS ORDERED: PIPERACILLIN /TAZOBACTAM 3.375 G in IV D5W 50 ML IV SCH (21:00)
--- NOTE | 2020-09-05 21:00 | NUR ---
ENERGY AND CONSERVATION TECHNICIANCONFIDENTIAL SECRETARY NOTE ADMITTED A 67YR OLD MALE PATIENT WITH ADMITTING DX OF PNA AND HYPOKALEMIA. HX OF COPD, CVA PULMONARY EMBOLISM, HLD, HTN, TIA, CVA AND GERD. PT A/0 X3. BREATHING EVEN AND UNLABORED ON 4LPM OF 02. HOWEVER AUDIBLE WHEEZING NOTED. PT DENIES SOB. 02 SATURATION AT 96%. NOTIFIED RT ABOUT PATIENT'S WHEEZING AND RT ADMINISTERED BREATHING TX IMMEDIATELY. RIGHT AC 20G NOTED. IV FLUIDS INFUSING WELL. BODY ASSESSMENT DONE. NO SKIN ISSUES NOTED. BED BATH PROVIDED. BELONGINGS INVENTORY COMPLETED. BED IN LOWEST POSITION. CALL LIGHT WITHIN REACH. SRX2 UP. HOB ELEVATED. ALL NEEDS RENDERED. WILL CONTINUE TO MONITOR.
[2020-09-05] MEDS: methylPREDNISolone SOD SUCC 40 MG/ML VIAL IV SCH ×2 (22:00→22:05)
--- NOTE | 2020-09-05 22:00 | NUR ---
registered nurse cardiac telemetry note patient urinated on his urinal . 220ml , clear emily in color.
[2020-09-05] MEDS ORDERED: MEROPENEM 500 MG VIAL IV ONE (22:01)
[2020-09-05] MEDS: ENOXAPARIN SODIUM 40 MG/0.4 ML DISP.SYRIN SQ SCH (22:02)
[2020-09-05] MEDS: MEROPENEM 500 MG in IV NS 0.9% 50 ML IV SCH (22:04)
[2020-09-05] MEDS: IV NS 0.9% 1,000 ML IV PRN (22:05)
--- NOTE | 2020-09-05 23:49 | NUR ---
IMMIGRATION LAWYER NOTE NOTIFIED MD REGARDING PATIENT'S ELEVATED BP OF 183/99, HR 84. NEW ORDER NOTED FOR VASOTEC 2.5MG IV Q6H PRN FOR SBP >150. NEW ORDER NOTED AND CARRIED OUT.
[2020-09-06] VITALS: BP 171/88
[2020-09-06] MEDS ORDERED: ENALAPRILAT INJ (1.25 MG/ML) 1.25 MG/ML VIAL IV ONE (01:35)
[2020-09-06] MEDS: ENALAPRILAT DIHYD. (2.5MG/ML) 1.25 MG/ML VIAL IV PRN (01:38)
--- NOTE | 2020-09-06 02:02 | NUR ---
GANG SAW OPERATOR NOTE OFFERED PNA SHOT TO PATIENT HOWEVER PT REFUSED. OFFERED X3. BENEFITS EXPLAINED. STILL REFUSED.
[2020-09-06 04:00] VITALS: BP 142/84
[2020-09-06] MEDS: methylPREDNISolone SOD SUCC 40 MG/ML VIAL IV SCH ×3 (04:25→20:33)
[2020-09-06] MEDS: VANCOMYCIN 0.75 GM in IV D5W 250 ML IV SCH ×2 (05:36→17:29)
[2020-09-06 06:21] LABS: BASOPHILS % (AUTO) 0.1 % (0.0-2.0); HEMATOCRIT 45 % (39-51); HEMOGLOBIN 14.8 g/dL (13.5-17.5); LYMPHOCYTES # (AUTO) 1.4 /CMM (0.8-4.8); LYMPHOCYTES % (AUTO) 9.7 % (20.0-44.0); MEAN CORPUSCULAR HGB CONC 33 g/dl (31.0-36.0); MEAN CORPUSCULAR VOLUME 81 fL (80-96); MONOCYTES # (AUTO) 0.2 /CMM (0.1-1.30); MONOCYTES % (AUTO) 1.2 % (2.0-12.0); PLATELET COUNT (AUTO) 183 /CMM (150-450); RED BLOOD CELL COUNT(AUTO) 5.61 MIL/uL (4.5-6.0); WHITE BLOOD COUNT (AUTO) 14.6 K/uL (4.3-11.0)
--- NOTE | 2020-09-06 06:51 | NUR ---
OBSTETRICS/GYNECOLOGY NURSE NOTE PT IN BED. ASLEEP BUT EASILY AROUSABLE .BREATHING EVEN AND UNLABORED WITH NO SOB OR ACUTE DISTRESS NOTED. WHEEZING IS LESS AUDIBLE . ON 02 4LPM VIA NC. TOLERATING WELL. PT DENIES SOB. IV SITE PATENT AND INTACT. ATB INFUSING WELL. ALL NEEDS RENDERED. KEPT CLEAN AND DRY. CALL LIGHT WITHIN REACH .WILL ENDORSE TO AM NURSE FOR CONTINUITY OF CARE.
[2020-09-06 06:54] LABS: CALCIUM, SERUM 8.6 mg/dL (8.5-10.1); MAGNESIUM 1.9 mg/dL (1.8-2.4); PHOSPHORUS 3.5 mg/dL (2.5-4.9); POTASSIUM 4.2 mmol/L (3.5-5.1); THYROID STIMULATING HORMONE 1.04 uIU/mL (0.358-3.74)
--- NOTE | 2020-09-06 07:10 | NUR ---
PT IN BED. ASLEEP BUT EASILY AROUSABLE .BREATHING EVEN AND UNLABORED WITH NO SOB OR ACUTE DISTRESS NOTED. WHEEZING SLIGHTLY AUDIBLE . ON 02 4LPM VIA NC SPO94%. TOLERATING WELL. PT DENIES SOB. IV SITE PATENT AND INTACT FLUSHED. SR ON TELE. FULL LIQUID DIET TOLERATING WELL. ALL HOSPITAL POLICY SAFETY PRECAUTIONS IMPLEMENTED. AWAITING ST EVAL.
[2020-09-06 08:00] VITALS: BP 142/84
[2020-09-06] MEDS: MEROPENEM 500 MG in IV NS 0.9% 50 ML IV SCH ×2 (08:18→18:51)
[2020-09-06] MEDS: PANTOPRAZOLE 40 MG VIAL IV SCH (08:18)
[2020-09-06 12:00] VITALS: BP 142/84
--- NOTE | 2020-09-06 12:09 | NUR ---
Triage Technician consult requested by Mark Young DNP for possible self-neglect. Triage Technician attempted to meet with the patient. Patient was asleep when SW entered room. Patient was easily arousable by verbal cues. However, patient unable to answer SW questions at this time. Patient not able to respond to mental status exam. SW to attempt to speak with the patient at a later time and follow-up on possible self-neglect case with APS.
--- NOTE | 2020-09-06 12:58 | NUR ---
SPOKE WITH SPEECH THERAPIST. PT ORDER FOR PUREED DIET. ASPIRATIONS PRECAUTIONS IMPLEMENTED ORDERED BY ST. WILL IMPLEMENT.
[2020-09-06] MEDS: IV NS 0.9% 1,000 ML IV PRN (13:06)
--- NOTE | 2020-09-06 15:43 | NUR ---
Program Research Specialist attempted to speak with the patient again. Patient was in deep sleep, not easily arousable by verbal cues or physical touch. SW to follow up and remain available for all needs regarding this patient.
--- NOTE | 2020-09-06 15:53 | NUR ---
Time Piece Repairer made APS report due to suspicion of self-neglect per Mark Young DNP. APS report intake # [id number] SW to place copy of report in patient's chart.
[2020-09-06 16:00] VITALS: BP 162/71
--- NOTE | 2020-09-06 19:15 | NUR ---
PT IN BED. ASLEEP BUT EASILY AROUSABLE .BREATHING EVEN AND UNLABORED WITH NO SOB OR ACUTE DISTRESS NOTED. WHEEZING SLIGHTLY AUDIBLE . ON 02 4LPM VIA NC SPO98%. TOLERATING WELL. PT DENIES SOB. IV SITE PATENT AND INTACT FLUSHED. PUREED DIET TOLERATING WELL. ALL HOSPITAL POLICY SAFETY PRECAUTIONS IMPLEMENTED. ENDORSED TO PM RN FOR CONTINUATION OF CARE.
--- NOTE | 2020-09-06 19:40 | NUR ---
RN NOTE RECEIVED PT IN BED. ASLEEP BUT EASILY AROUSABLE. ON 02 4L/MIN VIA NC O2 SAT CURRENTLY 97%. BREATHING EVEN AND UNLABORED. NO SOB OR ACUTE DISTRESS NOTED. WHEEZING SLIGHTLY AUDIBLE .PT DENIES SOB. IV SITE TO RAC PATENT AND INTACT FLUSHING WELL, NS INFUSING AT 70 ML/HR. URINAL AT BEDSIDE, BED LOCKED AND IN LOWEST POSITION. CALL LIGHT WITHIN REACH. WILL CONT. TO MONITOR PT.
[2020-09-06] MEDS: ENOXAPARIN SODIUM 40 MG/0.4 ML DISP.SYRIN SQ SCH (20:32)
[2020-09-06 20:53] VITALS: BP 158/89
--- NOTE | 2020-09-07 02:00 | NUR ---
RN NOTE BLADDER SCAN COMPLETED 34ML IN BLADDER. NO CATHERIZATION NEEDED.
[2020-09-07 04:00] VITALS: BP 138/70
[2020-09-07] MEDS: IV NS 0.9% 1,000 ML IV PRN ×2 (04:52→20:19)
[2020-09-07] MEDS: methylPREDNISolone SOD SUCC 40 MG/ML VIAL IV SCH ×3 (05:03→20:30)
[2020-09-07 06:31] LABS: CALCIUM, SERUM 8.4 mg/dL (8.5-10.1); CREATININE 1.1 mg/dL (0.6-1.3); POTASSIUM 3.6 mmol/L (3.5-5.1)
--- NOTE | 2020-09-07 07:30 | NUR ---
RN NOTE PT CURRENTLY AWAKE CONTINUES ON 02 4L/MIN VIA. BREATHING EVEN AND UNLABORED. NO SOB OR ACUTE DISTRESS NOTED. WHEEZING SLIGHTLY AUDIBLE .PT DENIES SOB. IV SITE TO RAC PATENT AND INTACT FLUSHING WELL, NS INFUSING AT 70 ML/HR. URINAL AT BEDSIDE, BED LOCKED AND IN LOWEST POSITION. CALL LIGHT WITHIN REACH ENDORSED TO AM RN FOR ROBINSON
[2020-09-07] MEDS: MEROPENEM 500 MG in IV NS 0.9% 50 ML IV SCH (07:44)
--- NOTE | 2020-09-07 07:45 | NUR ---
Patient is resting in bed, awake alert and oriented x2. On 4L oxygen saturation 95%. Patient complains of b/l lower extremity leg. Pain medication provided. Swallow precautions noted . Patient on puree diet tolerated well but noted with poor appetite. IV fluid is running as ordered. Will continue to monitor
[2020-09-07 08:00] VITALS: BP 148/76
[2020-09-07] MEDS: PANTOPRAZOLE 40 MG VIAL IV SCH (08:17)
--- NOTE | 2020-09-07 14:00 | NUR ---
Checked for residual as ordered. 50 ml residual noted , patient voiding well
[2020-09-07] MEDS ORDERED: LEVOFLOXACIN (250MG) 250 MG TABLET PO SCH (18:30)
--- NOTE | 2020-09-07 19:35 | NUR ---
MS RN NOTES RECEIVED ON BED SLEEPING,AROUSABLE TO VERBAL STIMULI,BREATHING NON LABORED,O2 IN USED AT 4L/NC TO KEEP O2 SAT ABOVE 90 %,,O2 SAT 100% AT THE MOMENT.SALINE LOCK OUT ON THE LEFT AC.INCONTINENT ON URINE,REPOSITION PER PROTOCOL,FALL PRECAUTION OBSERVED.BED ALARM TRIGGERED.BED ON LOWEST POSITION AND LOCKED.CALL LIGHT IN REACH,NEEDS ANTICIPATED.
--- NOTE | 2020-09-07 19:40 | NUR ---
MS GARCIA NOTES NEW SALINE PLACE ON RIGHT FOREARM #22,SAME IVF NS AT 75ML/HR INFUSING AT THIS TIME. Addendum: 09/08/20 at 0558 by GUDELIA SETHI RN miladys saline lock
[2020-09-07 20:00] VITALS: BP 163/75
[2020-09-07] MEDS: ENOXAPARIN SODIUM 40 MG/0.4 ML DISP.SYRIN SQ SCH (20:29)
[2020-09-08] MEDS: methylPREDNISolone SOD SUCC 40 MG/ML VIAL IV SCH (05:22)
[2020-09-08] MEDS ORDERED: ENALAPRILAT INJ (1.25 MG/ML) 1.25 MG/ML VIAL IV ONE (05:26)
[2020-09-08] MEDS: ENALAPRILAT DIHYD. (2.5MG/ML) 1.25 MG/ML VIAL IV PRN (05:34)
--- NOTE | 2020-09-08 05:34 | NUR ---
MS RN NOTES BP 173/86,PULSE-65,CHARGE NURSE MADE AWARE,VASOTEC 2.5MG IV GIVEN ORDERED FOR SBP >150.
--- NOTE | 2020-09-08 06:07 | NUR ---
MS RN NOTES CALM AND QUIET ON BED,DENIES PAIN,IVF IN PROGRESS,ASSIST WITH ADLS,DUE MEDS ADMINISTERED.IN NO ACUTE DISTRESS.D/C PLAN TO [facility]IN NO ACTE DISTRESS.
[2020-09-08 06:39] LABS: HEMATOCRIT 44 % (39-51); HEMOGLOBIN 14.4 g/dL (13.5-17.5); LYMPHOCYTES # (AUTO) 1.8 /CMM (0.8-4.8); LYMPHOCYTES % (AUTO) 14.5 % (20.0-44.0); MEAN CORPUSCULAR HGB CONC 33 g/dl (31.0-36.0); MEAN CORPUSCULAR VOLUME 81 fL (80-96); MONOCYTES # (AUTO) 0.5 /CMM (0.1-1.30); MONOCYTES % (AUTO) 4.2 % (2.0-12.0); NEUTROPHILS # (AUTO) 10.1 /CMM (1.8-8.9); NEUTROPHILS % (AUTO) 81.3 % (43.0-81.0); PLATELET COUNT (AUTO) 164 /CMM (150-450); RED BLOOD CELL COUNT(AUTO) 5.44 MIL/uL (4.5-6.0); WHITE BLOOD COUNT (AUTO) 12.4 K/uL (4.3-11.0)
[2020-09-08 06:57] LABS: CALCIUM, SERUM 8.1 mg/dL (8.5-10.1); CREATININE 0.9 mg/dL (0.6-1.3); POTASSIUM 3.6 mmol/L (3.5-5.1)
[2020-09-08] MEDS ORDERED: CLONIDINE HCL 0.1 MG TABLET PO PRN (08:00)
--- NOTE | 2020-09-08 08:00 | NUR ---
MS RN OPENING NOTES Received Patient resting in bed. A/O x 2. Noted increased blood pressure of 160/67, will intervene as ordered. Otherwise VS stable with no acute distress. Breathing even and unlabored on 4LPM via NC with no respiratory distress. Denies pain. No signs and symptoms of pain. 22g PIV on RFA intact, patent and flushing well with NS infusing at 75ml/hr. Safety precautions in place. Bed locked and set to lowest position with side rails x 2 up. All needs rendered at this time. Call light within reach. Will continue to monitor.
[2020-09-08 08:56] VITALS: BP 160/67
[2020-09-08] MEDS: PANTOPRAZOLE 40 MG VIAL IV SCH (08:57)
[2020-09-08] MEDS ORDERED: Levofloxacin (250MG) PO (10:06)
--- NOTE | 2020-09-08 11:03 | NUR ---
Fisher Eel received a call from APS Rubber Vulcanizing Machine Operator Parth . Per APS DANE Alba, patient needs a mental capacity evaluation from either [facility] physician or [facility] facility for next steps. APS DANE Alba informed this keno writer that this SW to give a call back to Parth regarding patient's discharge date and discharge location.
--- NOTE | 2020-09-08 15:20 | NUR ---
BRIDGETT pick up Notes: Pt discharged to [facility] at this time. Pt is in stable condition. Pt vital signs WNL and breathing unlabored and WNL. Denies pain. No signs and symptoms of pain. Rt forearm PIV removed intact, Pt tolerated well. Skin intact. Med reconciliation and discharge orders reviewed and explained to Pt. Pt verbalized understanding. All belongs given to the Pt. Pt will follow up with primary MD at SNF and complete PO ABX. Pt report given to EMT and transported with them. Report given to RADHA Neri at [facility].
== END 2020-09-08 15:23 | DRG 871 ==
LOC: ER 13:26 → TELE1 20:02 → MEDSG1 09-06 09:26
PROVIDERS: ADMIT Nurse Practitioner Acute Care; ATTEND Internal Medicine
DX: A41.9 Sepsis, unspecified organism (principal); G93.41 Metabolic encephalopathy; J69.0 Pneumonitis due to inhalation of food and vomit; N17.0 Acute kidney failure with tubular necrosis; J96.01 Acute respiratory failure with hypoxia; J44.1 Chronic obstructive pulmonary disease with (acute) exacerbation; J44.0 Chronic obstructive pulmonary disease with (acute) lower respiratory infection; D68.59 Other primary thrombophilia; E44.0 Moderate protein-calorie malnutrition; Z68.1 Body mass index [BMI] 19.9 or less, adult; T76.01XA Adult neglect or abandonment, suspected, initial encounter; R64 Cachexia; E87.6 Hypokalemia; I25.10 Atherosclerotic heart disease of native coronary artery without angina pectoris; I11.0 Hypertensive heart disease with heart failure; I50.9 Heart failure, unspecified; K21.9 Gastro-esophageal reflux disease without esophagitis; E78.5 Hyperlipidemia, unspecified; N40.0 Benign prostatic hyperplasia without lower urinary tract symptoms; R62.7 Adult failure to thrive; Z86.73 Personal history of transient ischemic attack (TIA), and cerebral infarction without residual deficits; F03.90 Unspecified dementia, unspecified severity, without behavioral disturbance, psychotic disturbance, mood disturbance, and anxiety; Z91.19 Patient's noncompliance with other medical treatment and regimen; Z91.81 History of falling; Z86.711 Personal history of pulmonary embolism; Z88.1 Allergy status to other antibiotic agents; Z79.02 Long term (current) use of antithrombotics/antiplatelets; Z79.899 Other long term (current) drug therapy; I70.0 Atherosclerosis of aorta; E11.9 Type 2 diabetes mellitus without complications; Z74.09 Other reduced mobility; I25.2 Old myocardial infarction; Z79.51 Long term (current) use of inhaled steroids; Z87.891 Personal history of nicotine dependence; Z86.718 Personal history of other venous thrombosis and embolism
CPT/HCPCS: 36415; 70450-TC; 71045-TC; 80048-TC; 80061-TC; 80076-TC; 82728-TC; 83605-TC; 83615-TC; 83735-TC; 84100-TC; 84439-TC; 84443-TC; 84484-TC; 85025-TC; 85730-TC; 86140-TC; 87040-TC; 87081-TC; 92526; 92611-TC; 93307-TC; 94799-TC; C9113; C9803; G0378; G0480; J1650; J2185; J2405; J2543; J2920; J3370; J3490; J7030; J7060

== ENCOUNTER 2020-10-31 11:26 | Inpatient (IN) | payer MEDICARE, OTHER ==
[~2020-10-31] VITALS: Ht 175.3 cm; Wt 69.9 kg
[~2020-10-31 11:26] MED LIST changes: -BUPR1TAB45 PO; -DOXY100T2 PO; -FLUC100T8 PO; -Insulin Glargine,Hum SQ; -PRED20TA PO; -ZOLP5TAB8 PO
--- NOTE | 2020-10-31 11:42 | NUR ---
ELECTRIC DRILL OPERATOR AT BEDSIDE
--- NOTE | 2020-10-31 12:08 | NUR ---
ALEXX. CALLED IN D/T PATIENT FOUND WANDERING AROUNF HIS NEIGHBORHOOD. AAOX3. NOT IN RESP DISTRESS, BREATHING EVEN AND UNLABORED. BROUGHT IN FOR GENERALIZED WEAKNESS. PER PT, HE VERBALIZED THAT HE HAS BEEN FEELING WEAK AND DIFFICULT TO WALK. PER EMS REPORT, PT LEAVES ALONE. MD WAS AT THE BEDSIDE FOR EVAL. ORDERS RECEIVED, NOTED AND CARRIED OUT. IV LINE WAS ESTABLISHED. BLOOD DRAWN AND GIVEN TO RESEARCH & ANALYTICS MANAGER AT BEDSIDE.
[2020-10-31 12:12] LABS: BASOPHILS # (AUTO) 0.1 /CMM (0.0-0.2); BASOPHILS % (AUTO) 0.8 % (0.0-2.0); EOSINOPHILS % (AUTO) 0.3 % (0.0-6.0); HEMATOCRIT 42 % (39-51); MEAN CORPUSCULAR HGB CONC 33 g/dl (31.0-36.0); MEAN CORPUSCULAR VOLUME 84 fL (80-96); MONOCYTES # (AUTO) 0.8 /CMM (0.1-1.30); MONOCYTES % (AUTO) 9.2 % (2.0-12.0); NEUTROPHILS # (AUTO) 6.7 /CMM (1.8-8.9); NEUTROPHILS % (AUTO) 77.7 % (43.0-81.0); PLATELET COUNT (AUTO) 248 /CMM (150-450); RED BLOOD CELL COUNT(AUTO) 4.99 MIL/uL (4.5-6.0); WHITE BLOOD COUNT (AUTO) 8.7 K/uL (4.3-11.0)
[2020-10-31 12:47] LABS: ALANINE AMINOTRANSFERASE 17 U/L (12-78); ALBUMIN 3.5 g/dL (3.4-5.0); ALKALINE PHOSPHATASE 77 U/L (46-116); ASPARTATE AMINOTRANSFERASE 36 U/L (15-37); BILIRUBIN,DIRECT 0.2 mg/dL (0.0-0.2); BILIRUBIN,TOTAL 0.8 mg/dL (0.2-1.0); CALCIUM, SERUM 9.5 mg/dL (8.5-10.1); CARBON DIOXIDE 25 mmol/L (21-32); CHLORIDE 100 mmol/L (98-107); CREATININE 1.5 mg/dL (0.6-1.3); GLUCOSE 143 mg/dL (74-106); POTASSIUM 4.3 mmol/L (3.5-5.1); SODIUM SERUM 137 mmol/L (136-145); TOTAL PROTEIN, SERUM 7.6 g/dL (6.4-8.2)
[2020-10-31 13:07] LABS: UREA NITROGEN, BLOOD 27 mg/dL (7-18)
--- NOTE | 2020-10-31 13:15 | NUR ---
MOVE SHEET SUBMITTED AND CALLED FOR TELE
[2020-10-31] MEDS ORDERED: IV NS 0.9% 1,000 ML BAG IV ONE (13:30)
[2020-10-31] MEDS ORDERED: FLUT1BLS13 PO (14:18)
[2020-10-31] MEDS ORDERED: ALBUTEROL SULFATE INH 18 GM HFA.AER.AD IH PRN (15:00)
[2020-10-31] MEDS ORDERED: MAG HYDROX/AL HYDROX/SIMETH 30 ML UDC PO PRN (15:00)
[2020-10-31] MEDS ORDERED: MAGNESIUM HYDROXIDE 30 ML UDC PO PRN (15:00)
[2020-10-31] MEDS ORDERED: ONDANSETRON HCL/PF 4 MG/2 ML VIAL IVP PRN (15:00)
[2020-10-31] MEDS ORDERED: ACETAMINOPHEN 325 MG TABLET PO PRN (15:00)
[2020-10-31] MEDS ORDERED: Z GUARD REMEDY 2 OZ OINT TP PRN (15:00)
[2020-10-31] MEDS ORDERED: FLUTICASONE/VILANTEROL 1 EACH BLST.W.DEV IH SCH (15:30)
--- NOTE | 2020-10-31 16:30 | NUR ---
pt provided with meal
[2020-10-31] MEDS ORDERED: FLUTICASONE/SALMETEROL 1 DISK IH SCH (17:00)
--- NOTE | 2020-10-31 21:03 | NUR ---
pt in bed sleeping. nad noted. easily arrousable.
[2020-10-31] MEDS: IV NS 0.9% 1,000 ML IV PRN (22:02)
--- NOTE | 2020-10-31 22:34 | NUR ---
PT ENDORSED TO RADHA SAUNDERS
[2020-11-01 05:18] LABS: BASOPHILS # (AUTO) 0.1 /CMM (0.0-0.2); BASOPHILS % (AUTO) 1.1 % (0.0-2.0); EOSINOPHILS % (AUTO) 2.2 % (0.0-6.0); HEMATOCRIT 40 % (39-51); HEMOGLOBIN 13.2 g/dL (13.5-17.5); LYMPHOCYTES # (AUTO) 1.9 /CMM (0.8-4.8); LYMPHOCYTES % (AUTO) 26.1 % (20.0-44.0); MEAN CORPUSCULAR HGB CONC 33 g/dl (31.0-36.0); MEAN CORPUSCULAR VOLUME 85 fL (80-96); MONOCYTES # (AUTO) 0.7 /CMM (0.1-1.30); MONOCYTES % (AUTO) 9.4 % (2.0-12.0); NEUTROPHILS # (AUTO) 4.4 /CMM (1.8-8.9); NEUTROPHILS % (AUTO) 61.2 % (43.0-81.0); PLATELET COUNT (AUTO) 217 /CMM (150-450); RED BLOOD CELL COUNT(AUTO) 4.73 MIL/uL (4.5-6.0); WHITE BLOOD COUNT (AUTO) 7.1 K/uL (4.3-11.0)
[2020-11-01 05:35] LABS: CALCIUM, SERUM 8.8 mg/dL (8.5-10.1); CREATININE 1.1 mg/dL (0.6-1.3); MAGNESIUM 1.9 mg/dL (1.8-2.4); POTASSIUM 4.4 mmol/L (3.5-5.1)
--- NOTE | 2020-11-01 06:47 | NUR ---
PT IN BED AWAKE AND ALERT. BREATHING EVENLY. NO SOB. NO C/O PAIN OR DISCOMFORT. ON ONGOING IVF HYDRATION. IV SITE REMAINED C/D/I W/ NO S/S OF INFECTION OR IFILTRATION. PT WAS CLEANED AND DRIED. REPOSITIONED . WARM BLANKET PROVIDED .VSS. WILL CONT TO MONITOR ,
[2020-11-01] MEDS: FLUTICASONE/VILANTEROL 1 EACH BLST.W.DEV IH SCH (09:38)
--- NOTE | 2020-11-01 15:33 | NUR ---
AMBULATED TO RESTROOM STEADY GAIT. PT IS VERBALLY RESPONSIVE. ABLE TO MAKE NEEDS KNOWN. STABLE VITALS. AWAITING MD CARMICHAEL.
--- NOTE | 2020-11-01 19:32 | NUR ---
REPORT GIVEN TO CHIP GARCIA FOR ROB[facility]SON
--- NOTE | 2020-11-01 19:35 | NUR ---
pt in bed sleeping. arouses easily. breathing evenly. no sob. no c/o pain or discomfort. on ongoing ivf hydration . tolerated well. VSS. will cont to monitor ,
[2020-11-01] MEDS: IV NS 0.9% 1,000 ML IV PRN (23:27)
[2020-11-02 06:19] LABS: BASOPHILS # (AUTO) 0.1 /CMM (0.0-0.2); BASOPHILS % (AUTO) 0.8 % (0.0-2.0); EOSINOPHILS % (AUTO) 2.5 % (0.0-6.0); HEMATOCRIT 36 % (39-51); HEMOGLOBIN 12.2 g/dL (13.5-17.5); LYMPHOCYTES # (AUTO) 1.3 /CMM (0.8-4.8); LYMPHOCYTES % (AUTO) 21.6 % (20.0-44.0); MEAN CORPUSCULAR HGB CONC 34 g/dl (31.0-36.0); MEAN CORPUSCULAR VOLUME 83 fL (80-96); MONOCYTES # (AUTO) 0.6 /CMM (0.1-1.30); MONOCYTES % (AUTO) 9.4 % (2.0-12.0); NEUTROPHILS # (AUTO) 4.1 /CMM (1.8-8.9); NEUTROPHILS % (AUTO) 65.7 % (43.0-81.0); PLATELET COUNT (AUTO) 211 /CMM (150-450); RED BLOOD CELL COUNT(AUTO) 4.38 MIL/uL (4.5-6.0); WHITE BLOOD COUNT (AUTO) 6.2 K/uL (4.3-11.0)
[2020-11-02 06:22] LABS: CALCIUM, SERUM 8.5 mg/dL (8.5-10.1); MAGNESIUM 1.7 mg/dL (1.8-2.4); PHOSPHORUS 2.8 mg/dL (2.5-4.9); POTASSIUM 3.7 mmol/L (3.5-5.1)
[2020-11-02] MEDS ORDERED: HYDROCODONE/APAP 5/325MG TABLET ONE ×2 (08:10→15:17)
[2020-11-02] MEDS: HYDROCODONE/APAP 5/325MG TABLET PO PRN ×2 (08:15→15:18)
--- NOTE | 2020-11-02 08:30 | NUR ---
pt provided with bfast ate 70%
[2020-11-02 09:25] LABS: EOSINOPHILS % (MANUAL) 1 % (0-4); LYMPHOCYTES % (MANUAL) 17 % (16-48); MONOCYTES % (MANUAL) 10 % (0-11.0); MYELOCYTES % 3 % (0-0); NEUTROPHILS % (MANUAL) 69 (42-76)
[2020-11-02] MEDS: FLUTICASONE/VILANTEROL 1 EACH BLST.W.DEV IH SCH (10:00)
[2020-11-02] MEDS: Magnesium 1GM/D5W 100ML PREMIX 100 ML IV SCH ×2 (11:30→12:30)
--- NOTE | 2020-11-02 12:42 | NUR ---
provided pt with lunch ate 80%. pt in bed watching tv.
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
--- NOTE | 2020-11-02 18:26 | NUR ---
CALL FROM RAIZA CHAVIRA, WILL D/C PATIENT TOMORROW
--- NOTE | 2020-11-02 19:45 | NUR ---
Patient is resting comfortably in bed with eyes closed. Easily aroused. VSS. will cont to monitor,
[2020-11-03 05:43] LABS: CALCIUM, SERUM 8.6 mg/dL (8.5-10.1); POTASSIUM 3.3 mmol/L (3.5-5.1)
[2020-11-03] MEDS: FLUTICASONE/VILANTEROL 1 EACH BLST.W.DEV IH SCH (08:20)
[2020-11-03] MEDS ORDERED: POTASSIUM CHLORIDE 20 MEQ TAB.PRT.SR PO ONE (08:30)
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
--- NOTE | 2020-11-03 10:00 | NUR ---
aps case discussed with lon lee
--- NOTE | 2020-11-03 11:33 | NUR ---
Social Work Follow Up Note: food services director consult was requested by MD for 80 year old patient who came in for weakness and DANE Wheeler addressed the consult the previous day and conducted an APS Report. Pt has been admitted many times to the hospital and is discharged to SNF only to return back home without appropriate care. DANE Connor followed up today as the pt is being discharged. recommendation for discharge is SNF but the pts nephewGuevara ([phone]), stated that the pt will go home with a caregiver. DANE Connor called the pts nephew, Guevara ([phone]), who stated that he is the pts DPOA and will be sending the paperwork. He also stated that he is in the process of setting up a caregiver for the pt to have in his home setting. DANE will follow up with the pts nephew to ensure safe discharge plan with a caregiver in the home for the pt.
--- NOTE | 2020-11-03 11:53 | NUR ---
Social Work Follow Up Note: Pts DPOA and nephew, Paresh ([phone]), called the SW and stated that he faxed the DPOA paperwork and SW confirmed that she received and reviewed it. SW inquired if he had a caregiver ready for the pt and he stated that he has a caregiver by the name of Alda Lloyd ([phone] and [phone]) who can be there as needed so if 24 hours is needed then she is available. SW stated that she will pass along the message to case management social worker Aidee who will then contact him regarding when the pt can be picked up and taken home.
--- NOTE | 2020-11-03 14:30 | NUR ---
per cm pt okay to be dcd home with caregiver. betsy patel is aware. see social media marketing manager and case management notes
--- NOTE | 2020-11-03 14:56 | NUR ---
pt was picked up by [facility]
[2020-11-03 15:02] VITALS: BP 131/68
== END 2020-11-03 14:45 | disposition home health service (06) | DRG 682 ==
LOC: ER 11:30 → TRANSITION 13:57
PROVIDERS: ADMIT Internal Medicine; ATTEND Nurse Practitioner Acute Care
DX: N17.0 Acute kidney failure with tubular necrosis (principal); G93.41 Metabolic encephalopathy; D68.59 Other primary thrombophilia; E87.2 Acidosis; E44.0 Moderate protein-calorie malnutrition; Z79.51 Long term (current) use of inhaled steroids; I50.9 Heart failure, unspecified; I11.0 Hypertensive heart disease with heart failure; Z86.73 Personal history of transient ischemic attack (TIA), and cerebral infarction without residual deficits; N40.0 Benign prostatic hyperplasia without lower urinary tract symptoms; K21.9 Gastro-esophageal reflux disease without esophagitis; Z20.828 Contact with and (suspected) exposure to other viral communicable diseases; Z86.711 Personal history of pulmonary embolism; E78.5 Hyperlipidemia, unspecified; J44.9 Chronic obstructive pulmonary disease, unspecified; Z79.02 Long term (current) use of antithrombotics/antiplatelets; Z88.1 Allergy status to other antibiotic agents; Z79.899 Other long term (current) drug therapy; E86.0 Dehydration; I25.10 Atherosclerotic heart disease of native coronary artery without angina pectoris; E11.9 Type 2 diabetes mellitus without complications; Z74.09 Other reduced mobility; R62.7 Adult failure to thrive; E86.9 Volume depletion, unspecified; Z86.19 Personal history of other infectious and parasitic diseases
CPT/HCPCS: 36415; 71045-TC; 80048-TC; 80076-TC; 83605-TC; 83735-TC; 84100-TC; 84484-TC; 85025-TC; 85730-TC; 87040-TC; 87081-TC; 97112-TC; 97116-TC; 97530-TC; C9803; G0378; J2405; J3475; J7030; U0003

== ENCOUNTER 2021-04-01 10:58 | Inpatient (IN) | payer MEDICARE, OTHER ==
[~2021-04-01] VITALS: Ht 175.3 cm; Wt 53.5 kg
[~2021-04-01 10:58] MED LIST changes: -CLOP75TA15 PO; -DONE10TA44 PO; +FLUT1BLS13 PO; -FLUT1DIS3 IH; -Levofloxacin (250MG) PO; -SIMV-49 PO; -TAMS0.4C34 PO
[2021-04-01] MEDS ORDERED: EPINEPHRINE (1:10,000) SYRINGE 1 MG/10 ML DISP.SYRIN ONE ×2 (11:00→15:24)
[2021-04-01] MEDS ORDERED: NOREPINEPHRINE 4 MG/4 ML AMPUL IV ONE (11:00)
--- NOTE | 2021-04-01 11:00 | NUR ---
PATIENT A/OXO. ON NRB 15LPM UPON ARRIVAL WITH SPO2 OF 93%. PATIENT SHORT OF BREATH. HYPOTENSIVE.
[2021-04-01] MEDS ORDERED: KETAMINE HCL (500MG/10ML) 50 MG/ML VIAL ONE (11:02)
--- NOTE | 2021-04-01 11:03 | NUR ---
IV LINE ESTABLISHED, ON R HAND G20 IV, EPI GIVEN AT 1100AM. RECEIVED VERBAL ORDER TO GIVE KETAMINE 150MG IV AND HAYLEE 70MG.
--- NOTE | 2021-04-01 11:05 | NUR ---
PATIENT INTUBATED WITH THE ET SIZE 7.5, 24CM ON THE LIP, + COLOR CHANGE, BILATERAL CHEST RISE.
--- NOTE | 2021-04-01 11:15 | NUR ---
PATIENT NOTED PULSELESS, CPR INITIATED. INFORMED DR. VIDALES.
--- NOTE | 2021-04-01 11:18 | NUR ---
ROSC AT 1118
[2021-04-01] MEDS ORDERED: [UNRECOGNIZED DRUG - OTHER] IV ONE (11:30)
[2021-04-01] MEDS ORDERED: AMIODARONE 150 MG/3 ML VIAL IV ONE (11:30)
[2021-04-01] MEDS ORDERED: KETAMINE IV ONE (11:30)
[2021-04-01] MEDS ORDERED: NOREPINEPHRINE 8 MG in IV NS 0.9% 250ML IV PRN (11:30)
[2021-04-01] MEDS ORDERED: PANT40TA49 PO (11:36)
[2021-04-01] MEDS ORDERED: SIMV-49 PO (11:36)
[2021-04-01] MEDS ORDERED: TAMS-12 PO (11:36)
--- NOTE | 2021-04-01 12:03 | NUR ---
CENTRAL LINE INSERTED BY DR. VIDALES ON RIGHT SUBCLAVIAN. Addendum: 04/01/21 at 1330 by AILEEN CORRECTION: CENTRAL LINE ON RIGHT IJ.
--- NOTE | 2021-04-01 12:11 | NUR ---
LEVOPHED TITRATE TO EFFECT.
[2021-04-01 12:16] LABS: BASOPHILS # (AUTO) 0.1 /CMM (0.0-0.2); BASOPHILS % (AUTO) 0.3 % (0.0-2.0); EOSINOPHILS % (AUTO) 0.8 % (0.0-6.0); HEMATOCRIT 45 % (39-51); HEMOGLOBIN 14.4 g/dL (13.5-17.5); LYMPHOCYTES # (AUTO) 2.7 /CMM (0.8-4.8); LYMPHOCYTES % (AUTO) 13.9 % (20.0-44.0); MEAN CORPUSCULAR HGB CONC 32 g/dl (31.0-36.0); MEAN CORPUSCULAR VOLUME 83 fL (80-96); MONOCYTES # (AUTO) 0.7 /CMM (0.1-1.30); MONOCYTES % (AUTO) 3.4 % (2.0-12.0); NEUTROPHILS # (AUTO) 15.9 /CMM (1.8-8.9); NEUTROPHILS % (AUTO) 81.6 % (43.0-81.0); PLATELET COUNT (AUTO) 209 /CMM (150-450); RED BLOOD CELL COUNT(AUTO) 5.46 MIL/uL (4.5-6.0); WHITE BLOOD COUNT (AUTO) 19.5 K/uL (4.3-11.0)
[2021-04-01 12:18] LABS: BILIRUBIN,URINE SMALL (NEGATIVE); COLOR,URINE YELLOW (YELLOW); NITRITE, URINE NEGATIVE (NEGATIVE); PROTEIN,URINE 100 mg/dl (NEGATIVE); UGLUCOSE NEGATIVE (NEGATIVE); UROBILINOGEN,URINE 0.2 EU/dL (0.2)
[2021-04-01 12:22] LABS: ABG BASE EXCESS -14.2 mmol/L; ABG OXYGEN SATURATION 90.8 % (92.0-98.5); ABG PCO2 45.7 mmHg (35.0-45.0); ABG PH 7.128 (7.350-7.450); ABG PO2 82.6 mmHg (75.0-100.0); AaDO2 584.7 mmHg; COHb 0.9 % (0.5-1.5); MetHb 0.5 % (0.0-1.5); O2Hb 89.5 % (94.0-97.0); SITE, ABG Left Radial; VENT MODE, BG AC 24 500 100%
[2021-04-01 12:26] LABS: CALCIUM, SERUM 8.4 mg/dL (8.5-10.1); CARBON DIOXIDE 19 mmol/L (21-32); CHLORIDE 104 mmol/L (98-107); CREATININE 3.7 mg/dL (0.6-1.3); GLUCOSE 176 mg/dL (74-106); POTASSIUM 3.5 mmol/L (3.5-5.1); SODIUM SERUM 142 mmol/L (136-145); UREA NITROGEN, BLOOD 68 mg/dL (7-18)
[2021-04-01 12:27] LABS: RBC,URINE TOO NUMEROUS TO COUN /HPF (0-2)
[2021-04-01 12:28] LABS: BACTERIA,URINE Few /HPF (None Seen); LEUKOCYTE ESTERASE ,URINE 1+ (NEGATIVE); SQUAMOUS EPITHELIAL CELL,UR Few /HPF (None Seen)
[2021-04-01] MEDS ORDERED: AZTREONAM 2 G in IV NS 0.9% 100 ML IV ONE (12:30)
[2021-04-01] MEDS ORDERED: LEVOFLOXACIN 750 MG /D5W 150ML 150 ML IV ONE (12:30)
[2021-04-01] MEDS ORDERED: VANCOMYCIN 1 GM in IV D5W 250 ML IV ONE (12:30)
[2021-04-01] MEDS ORDERED: NOREPINEPHRINE 8 MG in IV NS 0.9% 250 ML IV ONE (12:30)
[2021-04-01 12:37] LABS: ALANINE AMINOTRANSFERASE 29 U/L (12-78); ALBUMIN 2.4 g/dL (3.4-5.0); ALKALINE PHOSPHATASE 74 U/L (46-116); ASPARTATE AMINOTRANSFERASE 76 U/L (15-37); BILIRUBIN,DIRECT 0.4 mg/dL (0.0-0.2); BILIRUBIN,TOTAL 1.1 mg/dL (0.2-1.0); NT-PRO BNP 21039 PG/ML (0-125); TOTAL PROTEIN, SERUM 6.6 g/dL (6.4-8.2)
--- NOTE | 2021-04-01 12:38 | NUR ---
called house sup for ICU bed
[2021-04-01] MEDS ORDERED: ENOXAPARIN SODIUM 60 MG/0.6 ML DISP.SYRIN SQ ONE (13:00)
--- NOTE | 2021-04-01 13:08 | NUR ---
levophed has duplicate order
--- NOTE | 2021-04-01 13:48 | NUR ---
room 254
[2021-04-01] MEDS ORDERED: ONDANSETRON HCL/PF 4 MG/2 ML VIAL IVP PRN (14:00)
[2021-04-01] MEDS ORDERED: MAGNESIUM HYDROXIDE 30 ML UDC PO PRN (14:00)
[2021-04-01] MEDS ORDERED: HYDROCODONE/APAP 5/325MG TABLET PO PRN (14:00)
[2021-04-01] MEDS ORDERED: ACETAMINOPHEN 325 MG TABLET PO PRN (14:00)
[2021-04-01] MEDS ORDERED: MAG HYDROX/AL HYDROX/SIMETH 30 ML UDC PO PRN (14:00)
[2021-04-01] MEDS ORDERED: IV D5/0.45 NACL 1,000 ML IV PRN (14:00)
[2021-04-01] MEDS ORDERED: Z GUARD REMEDY 2 OZ OINT TP PRN (14:00)
--- NOTE | 2021-04-01 14:10 | NUR ---
REPORT GIVEN TO MARY GARCIA FOR ROBINSON.
--- NOTE | 2021-04-01 14:33 | NUR ---
PATIENT TRANSFERRED TO ROOM 254 IN STABLE CONDITION. NO DISTRESS NOTED. ENDORSED THE VANCOMYCIN TO REDDY GARCIA.
[2021-04-01 14:40] VITALS: BP 69/23
[2021-04-01 14:45] VITALS: BP 81/27
[2021-04-01 15:00] VITALS: BP 61/44
--- NOTE | 2021-04-01 15:30 | NUR ---
RN NOTE PATIENT WAS RECEIVED FROM ER NURSE DALE AT 1435. ORALLY INTUBATED SIZE 7.5 AND 24 AT THE LIP, AC 16 TV 500 FIO2 100% PEEP 5. RIGHT IJ IN PLACE WITH LEVO RUNNING AT 0.6MCG/KG, AND NETO ALSO IN PROGRESS. INTRAOSSEOUS DEVICE ON LEFT LEG. BAPTISTE DRAINING TO GRAVITY. OGT WAS INSERTED. POSITIONED PATIENT COMFORTABLY ON BED. NON PALPABLE PULSES. DOPPLER NOT DETECTING PULSES WELL. CODE BLUE CALLED 6712. PATIENT 1511. PHONED CAGER OPERATOR'S TO INFORM OF - NOT A CAGER OPERATOR'S CASE. [employer] NOTIFIED. FAMILY INFORMED. AWAITING CALLBACK REGARDING CHOICE OF MORTUARY.
[2021-04-01] MEDS ORDERED: ROCURONIUM BROMIDE 50 MG/5 ML IV ONE (16:18)
[2021-04-01] MEDS ORDERED: SUCCINYLCHOLINE CHLORIDE 20 MG/ML VIAL IV ONE (16:18)
--- NOTE | 2021-04-01 17:00 | NUR ---
RN NOTE PATIENT'S FAMILY IS DR MIRIAM BRAR WHO REQUESTED TO SPEAK WITH PATIENT'S HOSPITALIST. DR GRANDA WAS NOTIFIED AND HAS CONFIRMED KNOWLEDGE OF SUCH REQUEST.
--- NOTE | 2021-04-01 18:00 | NUR ---
RN NOTE NO CALLBACK FROM FAMILY RE: PREFERRED MORTUARY. PATIENT TAKEN TO THE HOSPITAL MORTUARY. BELONGINGS (TECHNICAL SUPPORT INTERN'S LICENSE AND A PAIR OF SOCKS) HANDED OVER TO NURSING SENIOR DENTIST.
[2021-04-02] MEDS ORDERED: ENOXAPARIN SODIUM 30 MG/0.3 ML DISP.SYRIN SQ SCH (09:00)
[2021-04-02] MEDS ORDERED: LEVOFLOXACIN 500 MG /D5W 100ML 500 MG in PREMIX 1 EA IV SCH (14:00)
[2021-04-03] MEDS ORDERED: VANCOMYCIN 0.75 GM in IV D5W 250 ML IV SCH (16:00)
== END 2021-04-01 15:12 | DRG 871 ==
LOC: ER 11:02 → ICU 14:18
PROVIDERS: ADMIT Internal Medicine; ATTEND Internal Medicine
PROC: 5A1935Z Respiratory Ventilation, Less than 24 Consecutive Hours (ICD-10-PCS; principal; 2021-04-01)
PROC: 0BH17EZ Insertion of Endotracheal Airway into Trachea, Via Natural or Artificial Opening (ICD-10-PCS; 2021-04-01)
PROC: 02HV33Z Insertion of Infusion Device into Superior Vena Cava, Percutaneous Approach (ICD-10-PCS; 2021-04-01)
PROC: B548ZZA Ultrasonography of Superior Vena Cava, Guidance (ICD-10-PCS; 2021-04-01)
PROC: 5A2204Z Restoration of Cardiac Rhythm, Single (ICD-10-PCS; 2021-04-01)
DX: A41.9 Sepsis, unspecified organism (principal); J96.01 Acute respiratory failure with hypoxia; I21.4 Non-ST elevation (NSTEMI) myocardial infarction; G93.41 Metabolic encephalopathy; N17.9 Acute kidney failure, unspecified; N39.0 Urinary tract infection, site not specified; R65.20 Severe sepsis without septic shock; Z20.822 Contact with and (suspected) exposure to COVID-19; Z86.73 Personal history of transient ischemic attack (TIA), and cerebral infarction without residual deficits; I11.0 Hypertensive heart disease with heart failure; I50.9 Heart failure, unspecified; J44.9 Chronic obstructive pulmonary disease, unspecified; K21.9 Gastro-esophageal reflux disease without esophagitis; Z86.711 Personal history of pulmonary embolism; E78.5 Hyperlipidemia, unspecified; Z88.1 Allergy status to other antibiotic agents; Z79.51 Long term (current) use of inhaled steroids; Z79.899 Other long term (current) drug therapy; N40.0 Benign prostatic hyperplasia without lower urinary tract symptoms; E80.6 Other disorders of bilirubin metabolism
CPT/HCPCS: 36415; 36600; 70450-TC; 71045-TC; 80048-TC; 80076-TC; 81001; 83605-TC; 83880; 84484-TC; 85025-TC; 85730-TC; 87040-TC; 87081-TC; 87086-TC; A6403; C1751; C9803; G0378; J0171; J0330; J1956; J3370; J3490; J7030; J7050; J7060; U0003